=== PATIENT | female | born 1950 | race Caucasian/White ===

== ENCOUNTER 2019-05-21 08:00 | Outpatient (RCR) | payer SELFPAY | END 2019-05-22 08:00 | disposition home or self-care (01) | LOC: CHSCARD 08:00 | PROVIDERS: Visit Provider Internal Medicine Critical Care Medicine | DX: Z53.9 Procedure and treatment not carried out, unspecified reason (principal) | CPT/HCPCS: 99199 ==

== ENCOUNTER 2019-10-16 12:03 | Inpatient (IN) | payer MEDICARE, SELFPAY ==
[2019-10-16] VITALS (9 sets, daily range): BP systolic 129–163; BP diastolic 67–113; PULSE 87–118; RESP 18–30; TEMP 36.4–37; O2SAT 96–100; BMI 17.2
--- NOTE | ~2019-10-16 | CT_ITS ---
EXAMINATION: CTA chest PE protocol DATE: 10/16/2019 14:04 INDICATION: Shortness of breath. TECHNIQUE: Computed tomography angiography (CTA) of the chest was performed with 100 mL Omnipaque-350 intravenous contrast timed to evaluate the pulmonary arteries. Coronal maximum intensity projection 3D-reconstructions were created by the technologist. Automated exposure control and iterative reconst ruction technique were employed. The dose-length product was 165.91 mGy-cm. COMPARISON: Chest CT 06/13/2019, 05/12/17, 01/10/2011 FINDINGS: There is severe emphysema. There is mild atelectasis and scarring bilaterally. There is a 5 mm nodule in right lower lobe. There is a 7 mm nodule in left lower lobe. These nodules are unchange d from 05/12/2017, likely benign. No pleural effusion. There is a 10 mm nodule in right thyroid lobe, likely not clinically significant. There is a 17 mm nodule in left thyroid lobe without change from 01/10/2011, likely benign. The heart size is normal. There are coronary artery calcifications. No mele cardial effusion. There is no pulmonary embolus. There is severe thoracic spondylosis. IMPRESSION: 1. No pulmonary embolus. 2. Severe emphysema. Reviewed, dictated and finalized at location A.
--- NOTE | ~2019-10-16 | XR_ITS ---
EXAMINATION: XR chest 1V portable DATE: 10/16/2019 12:33 INDICATION: Shortness of breath. TECHNIQUE: A single frontal view of the chest was obtained. COMPARISON: Chest 2 views 06/24/2017, chest CT 06/13/2019 FINDINGS: The lungs are hyperexpanded with lucencies, consistent with emphysema. No pleural effusion or pneumothorax. The heart size is normal. The central pulmonary arteries are enlarged, consistent wi th pulmonary arterial hypertension. IMPRESSION: 1. Severe emphysema. Reviewed, dictated and finalized at location A. IMPRESSION: 1. Severe emphysema.
[2019-10-16] MEDS: methylPREDNISolone SOD SUCC 125 MG VIAL IV PUSH (12:35)
[2019-10-16 12:43] LABS: Alveolar/Arterial O2 Gradient 72.4 mmHg; Base Excess ABG 5.7 mEq/l (+/-2.0); Fractional Inspired Oxygen 38 %; HCO3 ABG 34.3 mEq/l (22.0-26.0); Oxygen Content ABG 17.8 %vol (16.0-22.0); Oxygen Saturation ABG 97.8 % (95.0-100.0); Oxyhemoglobin 96.5 % THb (90.0-100.0); PO2 ABG 117.2 mmHg (80.0-100.0); PO2 FiO2 Ratio Arterial Blood 3.08 %; pH ABG 7.305 (7.350-7.450)
[2019-10-16 12:46] LABS: PCO2 ABG 70.4 mmHg (35.0-45.0)
[2019-10-16 12:47] LABS: Device NASAL CANNULA; Liters per Minute 4.5 LPM; Site Drawn LEFT BRACHIAL
[2019-10-16 12:59] LABS: Basophils Percent Auto 0.4 % (0.2-1.2); Eosinophils Absolute Auto 0.1 K/mm3 (0-0.3); Eosinophils Percent Auto 0.7 % (0-4.4); Hematocrit 40.7 % (37.0-47.0); Hemoglobin 12.3 g/dL (12.0-15.0); Immature Granulocyte Absolute 0.04 K/mm3 (0.00-0.031); Immature Granulocyte Percent A 0.4 % (0-0.5); Lymphocytes Percent Auto 15.5 % (18.3-44.2); Mean Corpuscular HGB Conc 30.2 g/dl (32-36); Mean Corpuscular Hemoglobin 30.1 pg (26-34); Mean Corpuscular Volume 99.8 fl (80-100); Mean Platelet Volume 9.1 fl (7.4-10.4); Monocytes Percent Auto 9.2 % (2.6-8.5); Neutrophils Absolute Auto 7.6 K/mm3 (1.3-6.7); Neutrophils Percent Auto 73.8 % (45.5-73.1); Platelet Count Result 250 k/mm3 (150-375); Red Blood Count 4.08 M/mm3 (4.2-5.4); Red Cell Distribution Width 12.5 % (11.5-14.5); White Blood Count 10.3 K/mm3 (4.5-10.0)
[2019-10-16] MEDS: LORAZEPAM INJ 2 MG/ML VIAL 0.5 MG IV PUSH (13:05)
[2019-10-16 13:08] LABS: INR 0.9; Prothrombin Time 11.3 Seconds (11.1-14.7)
[2019-10-16 13:09] LABS: Partial Thromboplastin Time 27.8 SECONDS (22.3-36.8)
[2019-10-16 13:12] LABS: Alanine Aminotransferase 27 U/L (4-35); Albumin Level 4.5 g/dL (3.5-5.1); Alkaline Phosphatase 63 U/L (38-126); Aspartate Amino Transferase 33 U/L (14-36); Bilirubin,Total 0.2 mg/dL (0.2-1.3); Blood Urea Nitrogen 17 mg/dL (7-17); Calcium 9.3 mg/dL (8.4-10.2); Carbon Dioxide > 40 mmol/L (22-30); Chloride 92 mmol/L (98-107); D Dimer 0.55 ug/mL (<0.48); Estimated CRCL calculation 70 ml/min; Estimated Glomerular Filt Rate > 60; Glucose 157 mg/dL (65-105); Potassium 3.8 mmol/L (3.4-5.0); Sodium 136 mmol/L (137-145)
[2019-10-16 13:22] LABS: NT Pro B Type Natriuretic Pept 398 PG/ML (5-100); Troponin I < 0.012 ng/mL (0.000-0.034)
--- NOTE | 2019-10-16 13:57 | ED.GENADULT ---
HPI - General Adult General Chief complaint: Shortness of Breath/Dyspnea Stated complaint: diff breathing Time Seen by Provider: 10/16/19 12:08 Source: patient Mode of arrival: ambulatory Limitations: no limitations History of Present Illness HPI narrative: Patient is a 69-year-old female who presents to emergency department for evaluation of shortness of breath that is worsened over the course of the last several weeks worse in the last week with history of COPD emphysema is currently on 4-1/2 L of nasal cannula oxygen daily is followed by pulmonology has been using her home nebulizers with minimal improvement denies any new URI symptoms. Patient notes chronic cough produces white phlegm in the mornings patient denies any fever chills nausea vomiting Related Data Home Medications Medication Instructions Recorded Confirmed albuterol sulfate 2.5 mg INHALATION Q4H PRN 05/28/19 sildenafil (pulm.hypertension) 20 20 mg PO TID tablet 05/28/19 mg tablet Allergies Allergy/AdvReac Type Severity Reaction Status Date / Time latex Allergy Severe BURNING Verified 10/16/19 12:18 SENSATION Sulfa (Sulfonamide Allergy Unknown unknown Verified 10/16/19 12:18 Antibiotics) SULFA Allergy Unknown Unknown Uncoded 06/19/19 11:12 Review of Systems Review of Systems: All systems reviewed & are unremarkable except as noted in HPI and below PMFSH Past Medical History Medical History Changing nevus (~04/2019) Chronic obstructive pulmonary disease, unspecified (~2000) Ganglion cyst of finger of right hand (~01/2019) History of poliomyelitis without residual effect (~1950) Pulmonary hypertension (~2016) Weakness Surgical History Surgical History History of left oophorectomy (~05/06/86) Hx of tonsillectomy (~1955) Social History Social History Smoking status: Former smoker (Pt reports having a 20 year pack history. ) Second hand tobacco smoke exposure: No Smoking end date: 07/03/96 Alcohol intake: never Exam Narrative: Exam Narrative: GENERAL: Well-appearing, well-nourished, and in mild acute distress. HEAD: Normocephalic, atraumatic. EYES: PERRLA and EOMI. ENT: Nares clear, no rhinorrhea or epistaxis. Mucous membranes moist. Oropharynx without tonsillar hypertrophy exudate or other lesions. NECK: Supple. No adenopathy or masses. CHEST: Diminished on auscultation. Mild respiratory distress. Fine wheezes in the lower lung breaux HEART: Regular rate and rhythm. No murmur heard. Normal peripheral pulses. ABDOMEN: Soft, nontender, nondistended EXTREMITIES: Normal range of motion. No edema. SKIN: Warm, dry, no rash. NEURO: No focal deficits. Alert and oriented x3. PSYCH: Normal mood and affect. Course Consultations Consultation #1: Spoke with the hospitalist and debate director who will see patient in hospital and initiate therapies aware of case findings treatment plan and diagnosis Date: 10/16/19 Time: 14:45 Vital Signs Vital signs: Vital Signs Temperature 98.0 F 10/16/19 12:11 Pulse Rate 104 H 10/16/19 12:11 Respiratory Rate 24 H 10/16/19 12:11 Blood Pressure 129/97 H 10/16/19 12:11 Pulse Oximetry 100 10/16/19 12:11 Temperature 98.6 F 10/16/19 12:18 Pulse Rate 108 H 10/16/19 12:18 Respiratory Rate 22 H 10/16/19 12:18 Blood Pressure 159/113 H 10/16/19 12:18 Pulse Oximetry 100 10/16/19 12:18 Medical Decision Making [facility] Narrative Medical decision making narrative: Patient in the room at this time with slight improvement refused BiPAP was unable to tolerate the treatment patient with our high risk changes in the CTA of the chest patient with hypercarbia but is breathing at a more regular rate at this time patient denying any pain. Patient is afebrile nontoxic-appearing. Patient appears to be much improved
--- NOTE | 2019-10-16 14:34 | ECG_ITS ---
Measurements Intervals [place] Rate: 110 P: 85 ND: 151 QRS: 69 QRSD: 98 T: 99 QT: 327 QTc: 444 Interpretive Statements SINUS TACHYCARDIA POSSIBLE LEFT ATRIAL ENLARGEMENT LEFT VENTRICULAR HYPERTROPHY AND ST-T CHANGE BORDERLINE ST ABNORMALITY- INF/LAT LEADS BASELINE WANDER- I, V1-V6 ABNORMAL ECG Electronically Signed On 10-16-2019 15:41:15 CDT by Matthew Adame D.O.
[2019-10-16] MEDS: MAGNESIUM SULF 2 GM/WATER 50ML 2 GM/50 ML BAG IVPB (14:55)
--- NOTE | 2019-10-16 16:05 | PC.NURSE ---
This patient, Saima Bryant, was admitted to IMU Room 203-01. Patient/family oriented to hospital policies and general routines including ID bracelet, bed and alarms, visiting hours, pain management, procedures, bathroom and other care routines, personal items, smoking policy, room service/diet, and visiting hours. Valuables list has been completed. Information on how to activate the Rapid Response Team has been discussed. Patient/Family are encouraged to report perceived risks to care and to ask questions if they do not understand what they are told or what they should do.
[2019-10-16 16:23] LABS: Troponin I < 0.012 ng/mL (0.000-0.034)
[2019-10-16] MEDS: methylPREDNISolone SOD SUCC 125 MG VIAL 60 MG IV PUSH ×2 (16:59→23:38)
--- NOTE | 2019-10-16 17:22 | PM.IMHP ---
H&P: HPI History of Present Illness Chief complaint: hypercarbia,respiratory failure,copd exacerbation Narrative: Saima Bryant is a 69 year old female who has a history of COPD with chronic respiratory failure. The patient states that she typically wears oxygen around 4 to 4.5 L. She stated that she has been suffering with shortness of breath for at least 4-5 weeks. But she did want to come to the hospital because of the COVID virus. She sees Dr. Анна Jansen outpatient vásquez. The patient has tried inhalers and nebulizer machines at the past. The patient stated she cannot tolerate nebulizers. She has not recently been on any steroids no fever no chills she has a chronic cough in the nebulizers make her cough worse. The patient has known diastolic dysfunction with severe pulmonary hypertension. No pulmonary embolism. Severe emphysema. On her ABGs pH was 7.305 and pCO2 was 70.4. PO2 was 117.2. The patient refused a BiPAP machine and said she would not tolerated. They tried to give her Ativan help her tolerated which she just 1. She was given magnesium and Solu-Medrol. Date of service 10/16/2019 Review of Systems Review of Systems: All systems reviewed & are unremarkable except as noted in HPI and below Constitutional: Constitutional: Reports as per HPI and Reports no additional constitutional complaints Eyes: Eyes: Reports as per HPI and Reports no additional eye complaints ENT: Reports system reviewed and no additional complaints, except as documented and Reports Normal hearing present Cardiovascular: Cardiovascular: Reports no additional cardiovascular complaints Respiratory: Respiratory: Reports no additional respiratory complaints and Reports no additional respiratory complaints Gastrointestinal: Gastrointestinal: Reports as per HPI and Reports no additional gastrointestinal complaints Musculoskeletal: Musculoskeletal: Reports no additional musculoskeletal complaints Integumentary/Breasts: Skin/Breast: Reports system reviewed and no additional complaints, except as docu and Reports as per HPI Neurologic: Reports system reviewed and no additional complaints, except as documented, Reports as per HPI and Reports Normal hearing present Psychiatric: Psychiatric: Reports no additional psychiatric complaints and Reports as per HPI Endocrine: Endocrine: Reports no additional endocrine complaints Hematologic/Lymphatic: Hematologic/Lymphatic: Reports no additional hematologic/lymphatic complaints Allergic/Immunologic: Allergic/Immunologic: Reports no additional allergic/immunologic complaints [facility] Surgical History Surgical History History of left oophorectomy (~05/06/86) Hx of tonsillectomy (~1955) Family History Family History (Updated 10/16/19 @ 17:33 by Sharifa Delong NP) Sibling Family history of Parkinson's disease Family history of diabetes mellitus in first degree relative Hypertension Patient's sister is in good health Family history of alcoholism Mother Patient's mother is Cerebrovascular accident Family history of Parkinson's disease Grandparent Heart disease Cerebrovascular accident Father COPD (chronic obstructive pulmonary disease) Other Diabetes mellitus Family history of coronary artery disease Social History Social History (Updated 10/16/19 @ 17:40 by Sharifa Delong NP) Social History: The patient's Sim[place] lives with her . The patient desires to be a full code. Has 2 children. She used to smoke. She quit smoking in 1996. She is disabled. Smoking packs per day: 1 Smoking cigarettes per day: 20.0 Smoking status: Former smoker Second hand tobacco smoke exposure: No Smoking end date: 07/03/96 Alcohol intake: never Substance use: never Living arrangements: with family Occupation/Education: other Gender identity (if verbalized by the patient): Female Spiritual care con
[2019-10-16] MEDS: ALBUTEROL SULFATE (*SP) AEROSOL 1 PUFF 2 PUFF INHALATION ×2 (20:18→23:12)
[2019-10-16] MEDS: LOVASTATIN 10 MG TABLET PO (21:17)
[2019-10-16] MEDS: FAMOTIDINE 20 MG/2 ML VIAL IV PUSH (21:17)
--- NOTE | 2019-10-16 21:57 | PM.CNPUL ---
Assessment and Plan Assessment and plan (1) Acute and chronic respiratory failure: Qualifiers: Respiratory failure complication: hypoxia and hypercapnia Qualified Code(s): J96.21 - Acute and chronic respiratory failure with hypoxia; J96.22 - Acute and chronic respiratory failure with hypercapnia Code(s): J96.20 - Acute and chronic respiratory failure, unspecified whether with hypoxia or hypercapnia Status: Acute Assessment and Plan: Increased shortness of breath, CTA chest negative for PE. No infiltrate. She is reposnding to conservative therapy, and did not require BiPAP for hypercapnea. (2) Chronic obstructive pulmonary disease, unspecified: Onset Date: ~2000 Qualifiers: COPD type: COPD with acute exacerbation Qualified Code(s): J44.1 - Chronic obstructive pulmonary disease with (acute) exacerbation Code(s): J44.9 - Chronic obstructive pulmonary disease, unspecified Status: Acute Assessment and Plan: Severe emphysema; stopped tobacco 1996. Has considered transplant, decided not to proceed with evaluation. (3) Pulmonary hypertension: Onset Date: ~2016 Code(s): I27.20 - Pulmonary hypertension, unspecified Status: Chronic Assessment and Plan: Severe, has been on sildenafil 20 TID, recently stopped using due to lack of improvement in shortness of eath. History of Present Illness History of Present Illness Consult date: 10/21/19 Requesting physician: Denton Orellana MD Reason for consult: other (acute on chronic respiratory failure) Chief complaint: hypercarbia,respiratory failure,copd exacerbation Narrative: NEW: Saima Bryant is a 69 yo female followed in our practice. She has end stage COPD, wears O2 4.5 - 5 L/min, has called the office regarding increased shortness of breath without fever or chills,, initially would not allow her family to call an ambulance, then deteriorated. She has avoided coming to the hospital for fears regarding the pandemic, has been feeling sick for about a month. In the ED her pCO2 was higher than usual, ABG pH 7.30, pCO2 70.3, pO2 117. At first she refused use of BiPAP, improved without using it. She had diastolic dysfunction, improved with IV steroids, magnesium, She called the office several days prior to this admission because she did not like nebulized Brovana and budesonide started Sep 19, as the nebulizer seems to increase her shortness of breath and cough, wanted to switch back to Trelegy instead. She decided to stop using sildenafil for her pulmonary hypertension a few months ago, did nto think it was helping her shortness of breath. Review of Systems Review of Systems: All systems reviewed & are unremarkable except as noted in HPI and below PMFSH Past Medical History Medical History (Updated 10/17/19 @ 16:18 by Avery Avila MD) Changing nevus (~04/2019) Chronic obstructive pulmonary disease, unspecified (~2000) Ganglion cyst of finger of right hand (~01/2019) History of poliomyelitis without residual effect (~1950) Hyperlipidemia Pulmonary hypertension (~2016) Weakness Surgical History Surgical History History of left oophorectomy (~05/06/86) Hx of tonsillectomy (~1955) Family History Family History (Updated 10/16/19 @ 17:33 by Sharifa Delong NP) Sibling Family history of Parkinson's disease Family history of diabetes mellitus in first degree relative Hypertension Patient's sister is in good health Family history of alcoholism Mother Patient's mother is Cerebrovascular accident Family history of Parkinson's disease Grandparent Heart disease Cerebrovascular accident Father COPD (chronic obstructive pulmonary disease) Other Diabetes mellitus Family history of coronary artery disease Social History Social History (Updated 10/16/19 @ 17:40 by Sharifa Delong NP) Social History: The pat
[2019-10-17] VITALS (16 sets, daily range): BP systolic 116–163; BP diastolic 69–76; PULSE 90–116; RESP 16–20; TEMP 36.7–37.1; O2SAT 93–100; BMI 19.1
[2019-10-17] MEDS: ALBUTEROL SULFATE (*SP) AEROSOL 1 PUFF 2 PUFF INHALATION ×5 (03:05→20:41)
[2019-10-17 05:09] LABS: Hematocrit 40.1 % (37.0-47.0); Hemoglobin 12.2 g/dL (12.0-15.0); Immature Granulocyte Absolute 0.01 K/mm3 (0.00-0.031); Immature Granulocyte Percent A 0.2 % (0-0.5); Lymphocytes Absolute Auto 0.57 K/mm3 (0.9-3.2); Lymphocytes Percent Auto 13.9 % (18.3-44.2); Mean Corpuscular HGB Conc 30.4 g/dl (32-36); Mean Corpuscular Hemoglobin 30.2 pg (26-34); Mean Corpuscular Volume 99.3 fl (80-100); Mean Platelet Volume 9.1 fl (7.4-10.4); Monocytes Absolute Auto 0.1 K/mm3 (0.1-0.6); Monocytes Percent Auto 3.2 % (2.6-8.5); Neutrophils Absolute Auto 3.4 K/mm3 (1.3-6.7); Neutrophils Percent Auto 82.7 % (45.5-73.1); Platelet Count Result 204 k/mm3 (150-375); Red Blood Count 4.04 M/mm3 (4.2-5.4); Red Cell Distribution Width 12.3 % (11.5-14.5); White Blood Count 4.1 K/mm3 (4.5-10.0)
[2019-10-17 05:25] LABS: Alanine Aminotransferase 24 U/L (4-35); Albumin Level 4.1 g/dL (3.5-5.1); Alkaline Phosphatase 57 U/L (38-126); Aspartate Amino Transferase 27 U/L (14-36); Bilirubin,Total 0.2 mg/dL (0.2-1.3); Blood Urea Nitrogen 15 mg/dL (7-17); Calcium 9.6 mg/dL (8.4-10.2); Carbon Dioxide > 40 mmol/L (22-30); Chloride 93 mmol/L (98-107); Estimated CRCL calculation 77 ml/min; Estimated Glomerular Filt Rate > 60; Glucose 146 mg/dL (65-105); Magnesium 2.3 mg/dL (1.6-2.3); Potassium 4.6 mmol/L (3.4-5.0); Sodium 139 mmol/L (137-145)
[2019-10-17] MEDS: methylPREDNISolone SOD SUCC 125 MG VIAL 60 MG IV PUSH ×2 (05:43→12:50)
[2019-10-17 06:01] LABS: Thyroid Stimulating Hormone Reflex 0.373 uIU/mL (0.465-4.68)
[2019-10-17 06:55] LABS: Free T4 Free Thyroxine Reflex 1.29 ng/dL (0.78-2.19)
[2019-10-17 08:39] LABS: Total Triiodothyronine (T3) 0.99 NG/ML (0.97-1.69)
[2019-10-17] MEDS: FAMOTIDINE 20 MG/2 ML VIAL IV PUSH (09:21)
[2019-10-17] MEDS: SILDENAFIL CITRATE 20 MG TABLET PO ×2 (12:50→18:45)
--- NOTE | 2019-10-17 15:10 | PM.IMPN ---
Progress Note: A&P Assessment and Plan (1) Acute and chronic respiratory failure: Qualifiers: Respiratory failure complication: hypoxia and hypercapnia Qualified Code(s): J96.21 - Acute and chronic respiratory failure with hypoxia; J96.22 - Acute and chronic respiratory failure with hypercapnia Code(s): J96.20 - Acute and chronic respiratory failure, unspecified whether with hypoxia or hypercapnia Status: Acute Assessment and Plan: Patient is on 4.5L per nasal cannula chronically. She presumably has severe pulmonary hypertension. Patient most likely with COPD exacerbation resulting in the acute on chronic respiratory failure. Will wean oxygen maintain at [place] shins above 92%. Continue Solu-Medrol. Continue albuterol. Appreciate Pulmonary input. Okay to moved to medical floor. (2) Chronic obstructive pulmonary disease, unspecified: Onset Date: ~2000 Qualifiers: COPD type: COPD with acute exacerbation Qualified Code(s): J44.1 - Chronic obstructive pulmonary disease with (acute) exacerbation Code(s): J44.9 - Chronic obstructive pulmonary disease, unspecified Status: Acute Assessment and Plan: Patient with probable acute COPD exacerbation. The patient had IV magnesium in the emergency room. CTA as above. No wheezing appreciated today. Will continue Solu-Medrol and albuterol HFA. Continue Trelegy and Mucinex. Will give one dose of Diamox. (3) Hypercarbia: Code(s): R06.89 - Other abnormalities of breathing Status: Acute Assessment and Plan: pH at 7.30 with pCO2 at 70. [place] related to COPD exacerbation. Treatment as above. Patient 100% so will wean O2 to keep sats >92%. (4) Pulmonary hypertension: Onset Date: ~2016 Code(s): I27.20 - Pulmonary hypertension, unspecified Status: Chronic Assessment and Plan: Patient with severe pulmonary hypertension per chart review. However echocardiogram in April 2019 showing no pulmonary hypertension with pulmonary arterial systolic pressure 35 mmHg. Patient currently on sildenafil. Will defer to Pulmonary for further management. (5) Hyperlipidemia: Qualifiers: Hyperlipidemia type: unspecified Qualified Code(s): E78.5 - Hyperlipidemia, unspecified Code(s): E78.5 - Hyperlipidemia, unspecified Status: Acute Assessment and Plan: LFTs within normal limits. Continue lovastatin. (6) DVT prophylaxis: Code(s): Z29.9 - Encounter for prophylactic measures, unspecified Status: Acute Assessment and Plan: Nelidafrank Subjective Date/time seen: 10/17/19 15:10 Interval history: 69yo female with severe pulm HTN, COPD and chronic respiratory failure here for increasing SOB. Patient still with dyspnea on exertion when walking back to the bathroom which she has just returned from. She is also having shortness of breath at rest and overall no change in her symptoms today from admission. She complains of postnasal drainage and chronic rhinorrhea. Chest has a cough but is nonproductive. No chest pain. She complains of left-sided rib cage pain but this seems more chronic. Eating normally. No nausea or vomiting. Exam Narrative: Exam Narrative: Gen - thin female, tachypnea (just back from the BR) will sitting at side of bed HEENT - NC/AT. PERRL. MMM. No OP erythema or significant drainage Chest - few basilar rhonchi but mostly distant clear BS CV - RRR S1/S2; Tele showing no significant dysrhythmias Abd -soft. Occasionally tender but not at consistent location Ext - No pedal edema Psych - Nml mood and affect Skin - Warm and dry Objective Data Vital Signs Vital Signs: Vital Signs - 24 hr 10/16/19 16:00 10/16/19 16:13 10/16/19 18:00 Temperature 97.6 F Pulse Rate 118 H 114 H 94 Respiratory Rate 20 Blood Pressure 161/79 H Pulse Oximetry 100 10/16/19 20:00 10/16/19 20:21 10/16/19 22:00 Te
[2019-10-17] MEDS: ENOXAPARIN 40 MG/0.4 ML SYRINGE SUB-Q (17:48)
[2019-10-17] MEDS: methylPREDNISolone SOD SUCC 40 MG VIAL IV PUSH ×2 (17:49→23:13)
[2019-10-17] MEDS: WATER, STERILE FOR INJECTION 10 ML VIAL XX (18:00)
--- NOTE | 2019-10-17 18:00 | PC.NURSE ---
This patient, Saima Bryant, was transferred to [[id number] ] on 10/17/19 at 1800. Personal belongings sent with patient. Belongings list checked and signed with receiving [ ]. Report given to [ MARCO ANTONIO Leslie @[phone]]. Appropriate documentation sent with patient.
--- NOTE | 2019-10-17 18:15 | PC.NURSE ---
This patient, Saima Bryant, was received from [facility] on 10/17/19 at 1815. Personal belongings list checked and signed. Patient/family oriented to unit policies and routines
[2019-10-17] MEDS: FAMOTIDINE 20 MG TABLET PO (20:18)
[2019-10-17] MEDS: LOVASTATIN 10 MG TABLET PO (20:18)
[2019-10-17] MEDS: ACETAMINOPHEN 325 MG TABLET 650 MG PO (21:14)
[2019-10-18] VITALS (7 sets, daily range): BP systolic 134–153; BP diastolic 67–91; PULSE 94–115; RESP 16–20; TEMP 36.7–36.9; O2SAT 87–96
[2019-10-18] MEDS: ALBUTEROL SULFATE (*SP) AEROSOL 1 PUFF 2 PUFF INHALATION ×4 (00:34→13:02)
[2019-10-18 05:10] LABS: Blood Urea Nitrogen 24 mg/dL (7-17); Calcium 9.5 mg/dL (8.4-10.2); Carbon Dioxide 37 mmol/L (22-30); Chloride 97 mmol/L (98-107); Estimated CRCL calculation 57 ml/min; Estimated Glomerular Filt Rate > 60; Glucose 146 mg/dL (65-105); Sodium 137 mmol/L (137-145)
[2019-10-18] MEDS: methylPREDNISolone SOD SUCC 40 MG VIAL IV PUSH ×2 (06:47→12:08)
[2019-10-18] MEDS: SILDENAFIL CITRATE 20 MG TABLET PO ×2 (06:47→13:04)
[2019-10-18] MEDS: FAMOTIDINE 20 MG TABLET PO (07:29)
[2019-10-18] MEDS: ENOXAPARIN 40 MG/0.4 ML SYRINGE SUB-Q (07:29)
[2019-10-18] MEDS: ACETAMINOPHEN 325 MG TABLET 650 MG PO (10:15)
--- NOTE | 2019-10-18 14:29 | HOMEO2EVAL ---
Home Oxygen Evaluation RC: Home Oxygen (O2) Evaluation Start: 10/18/19 13:02 Freq: ONCE Status: Active Protocol: RPE Activity Type Activity Date Activity User E-Sign Co-Sign Detail Recorded Client Recorded Date Recorded By Document 10/18/19 14:00 MAHNAZ [id number] 10/18/19 14:28 MAHNAZ Document 10/18/19 14:02 MAHNAZ [email or web address] 10/18/19 14:28 MAHNAZ Document 10/18/19 14:04 MAHNAZ [email or web address] 10/18/19 14:28 MAHNAZ Document 10/18/19 14:08 MAHNAZ [email or web address] 10/18/19 14:28 MAHNAZ Document 10/18/19 14:20 MAHNAZ [email or web address] 10/18/19 14:28 MAHNAZ 10/18/19 10/18/19 10/18/19 14:00 14:02 14:04 Home O2 Evaluation Test Phase Resting Resting Resting Oxygen Delivery Room Air Nasal Cannula Nasal Cannula Oxygen Flow Rate (L/min) 1 2 Pulse Oximetry (90-100 %) 87 L 87 L 93 Pulse Rate (60-100 beats/min) 100 Activity Tolerance Ambulation Distance (feet) Home Oxygen Evaluation Comments Treatment Charges O2 Evaluation 10/18/19 10/18/19 14:08 14:20 Home O2 Evaluation Test Phase Exercise Resting Oxygen Delivery Nasal Cannula Nasal Cannula Oxygen Flow Rate (L/min) 2 2 Pulse Oximetry (90-100 %) 93 94 Pulse Rate (60-100 beats/min) 115 H 104 H Activity Tolerance Good Ambulation Distance (feet) 250 Home Oxygen Evaluation Comments PT REQUIRES 2L AT REST AND WITH ACTIVITY Treatment Charges
--- NOTE | 2019-10-18 14:30 | PCRCNOTE ---
HOME O2 EVAL COMPLETED. PT REQUIRES 2L AT REST AND WITH ACTIVITY. PT CURRENTLY HAS [facility] FOR O2 PROVIDER. WILL BRING IN TANK FROM HOME FOR DISCHARGE. I WILL FAX OVER THIS NEW HOME O2 EVAL AND NEW ORDER TO [facility] THIS IS A DECREASE IN CURRENT HOME O2 NEEDS/SETTING
--- NOTE | 2019-10-18 14:41 | PM.DS ---
DS: Diagnosis Admitting Diagnosis Admitting Diagnosis: Other abnormalities of breathing Discharge Diagnosis (1) Acute and chronic respiratory failure: Qualifiers: Respiratory failure complication: hypoxia and hypercapnia Qualified Code(s): J96.21 - Acute and chronic respiratory failure with hypoxia; J96.22 - Acute and chronic respiratory failure with hypercapnia Code(s): J96.20 - Acute and chronic respiratory failure, unspecified whether with hypoxia or hypercapnia Status: Acute Assessment and Plan: Patient is on 4.5L per nasal cannula chronically. She presumably has severe pulmonary hypertension. Patient most likely with COPD exacerbation resulting in the acute on chronic respiratory failure. Patient treated with Solu-Medrol and albuterol. Pulmonary followed along as well. Patient able to be weaned to 2Liters. Patietn educated about the dangers of having too much O2 (2) Chronic obstructive pulmonary disease, unspecified: Onset Date: ~2000 Qualifiers: COPD type: COPD with acute exacerbation Qualified Code(s): J44.1 - Chronic obstructive pulmonary disease with (acute) exacerbation Code(s): J44.9 - Chronic obstructive pulmonary disease, unspecified Status: Acute Assessment and Plan: Patient with probable acute COPD exacerbation. The patient had IV magnesium in the emergency room. CTA showing severe emphysema but no PE. Also with multiple pulmonary nodules but appear to be chronic. Treated with Solu-Medrol and albuterol HFA. We continued Trelegy and Mucinex. (3) Hypercarbia: Code(s): R06.89 - Other abnormalities of breathing Status: Acute Assessment and Plan: pH at 7.30 with pCO2 at 70. [place] related to COPD exacerbation. Treatment as above. Patient was 100% early in her hospital course so she was weaned to keep sats >92%. (4) Pulmonary hypertension: Onset Date: ~2016 Code(s): I27.20 - Pulmonary hypertension, unspecified Status: Chronic Assessment and Plan: Patient with severe pulmonary hypertension per chart review. However echocardiogram in April 2019 showing no pulmonary hypertension with pulmonary arterial systolic pressure 35 mmHg. Patient currently on sildenafil. Will defer to Pulmonary for further management. (5) Hyperlipidemia: Qualifiers: Hyperlipidemia type: unspecified Qualified Code(s): E78.5 - Hyperlipidemia, unspecified Code(s): E78.5 - Hyperlipidemia, unspecified Status: Acute Assessment and Plan: LFTs within normal limits. We continued lovastatin. (6) DVT prophylaxis: Code(s): Z29.9 - Encounter for prophylactic measures, unspecified Status: Acute Assessment and Plan: Lovenox DS: Summary Hospital Course Reason for hospitalization: 69yo female with severe emphysema here for SOB. Please see H&P for details. Hospital Course: As above. Time Spent with Patient Time attestation: Total time spent providing and/or coordinating discharge services:35 minutes Time spent: Greater than 30 minutes Specific discharge activities: Patient education and discussion with pulmonary Exam Narrative: Exam Narrative: SOB better. Walking to the BR. Eating small amounts. Gen - NARD sitting at the side of the bed Chest - left base mild inspiratory crackles o/w clear, distant BS CV - RRR S1/S2 Abd -soft. NT/ND, +BS Ext - No pedal edema Psych - Nml mood and affect Skin - Warm and dry DS: Data Data Completed and Pending Labs on day of discharge: Labs from last 24 hours 10/18/19 04:23 Sodium 137 Potassium 4.0 Chloride 97 L Carbon Dioxide 37 H BUN 24 H Creatinine 0.70 Estim Creat Clear Calc 57 Estimated GFR > 60 Glucose 146 H Calcium 9.5 Preliminary micro results at discharge 10/16/19 12:52 Blood Culture - Preliminary Blood 10/16/19 13:21 Blood Culture - Preliminary Blood D
--- NOTE | 2019-10-22 10:05 | PC.NURSE ---
Blood cx is negative.
== END 2019-10-18 16:04 | disposition home or self-care (01) | DRG 191 ==
LOC: ANHED 14:48 → ANHIMU 15:21 → ANH2MED 10-17 18:25
PROVIDERS: Emergency Medicine Emergency Medical Services; Nurse Practitioner; Admitting Provider Family Medicine; Emergency Provider Emergency Medicine; PCP Family Medicine; Visit Provider Internal Medicine
DX: J43.9 Emphysema, unspecified (principal); J96.11 Chronic respiratory failure with hypoxia; J96.12 Chronic respiratory failure with hypercapnia; I27.20 Pulmonary hypertension, unspecified; E78.5 Hyperlipidemia, unspecified; R91.8 Other nonspecific abnormal finding of lung field; Z87.891 Personal history of nicotine dependence
CPT/HCPCS: 36415; 36600; 71045; 71275; 80048; 80053; 82805; 83605; 83735; 83880; 84439; 84443; 84480; 84484; 85025; 85380; 85610; 85730; 87040; 93005; 94618; 94640; 96374; 96375; 99285; A9270; J0131; J1120; J1650; J2060; J2920; J2930; J3475; Q9967

== ENCOUNTER 2019-12-17 11:12 | Outpatient (CLI) | payer MEDICARE, SELFPAY ==
[2019-12-17 11:30] VITALS: O2SAT 87
[2019-12-17 11:33] VITALS: O2SAT 92
[2019-12-17 11:40] VITALS: O2SAT 86
[2019-12-17 11:43] VITALS: O2SAT 87
[2019-12-17 11:45] VITALS: O2SAT 89
[2019-12-17 12:00] VITALS: O2SAT 93
--- NOTE | 2019-12-17 13:19 | HOMEO2EVAL ---
Home Oxygen Evaluation RC: Home Oxygen (O2) Evaluation Start: 12/17/19 13:16 Freq: Status: Active Protocol: RPE Activity Type Activity Date Activity User E-Sign Co-Sign Detail Recorded Client Recorded Date Recorded By Document 12/17/19 11:30 MAHNAZ [id number] 12/17/19 13:19 MAHNAZ Document 12/17/19 11:33 [email or web address] [id number] 12/17/19 13:19 MAHNAZ Document 12/17/19 11:40 [email or web address] [email or web address] 12/17/19 13:19 MAHNAZ Document 12/17/19 11:43 [email or web address] [id number] 12/17/19 13:19 MAHNAZ Document 12/17/19 11:45 [email or web address] [email or web address] 12/17/19 13:19 MAHNAZ Document 12/17/19 12:00 MAHNAZ [id number] 12/17/19 13:19 MAHNAZ 12/17/19 12/17/19 12/17/19 11:30 11:33 11:40 Home O2 Evaluation Test Phase Resting Resting Exercise Oxygen Delivery Room Air Nasal Cannula Nasal Cannula Oxygen Flow Rate (L/min) 1 1 Pulse Oximetry (90-100 %) 87 L 92 86 L Ambulation Distance (feet) Home Oxygen Evaluation Comments Treatment Charges 12/17/19 12/17/19 12/17/19 11:43 11:45 12:00 Home O2 Evaluation Test Phase Exercise Exercise Resting Oxygen Delivery Nasal Cannula Nasal Cannula Nasal Cannula Oxygen Flow Rate (L/min) 2 3 1 Pulse Oximetry (90-100 %) 87 L 89 L 93 Ambulation Distance (feet) 300 Home Oxygen Evaluation Comments PT REQUIRES 1 AT REST AND 3 WITH EXERTION Treatment Charges O2 Evaluation
== END 2019-12-17 11:13 | disposition home or self-care (01) ==
LOC: ANHPFT 11:15
PROVIDERS: PCP Family Medicine; Visit Provider Internal Medicine Critical Care Medicine
DX: J96.10 Chronic respiratory failure, unspecified whether with hypoxia or hypercapnia (principal)
CPT/HCPCS: 94618

== ENCOUNTER 2020-01-29 14:24 | Outpatient (CLI) | payer MEDICARE, SELFPAY ==
[2020-01-29 15:58] LABS: Alanine Aminotransferase 38 U/L (4-35); Albumin Level 4.3 g/dL (3.5-5.1); Alkaline Phosphatase 56 U/L (38-126); Aspartate Amino Transferase 40 U/L (14-36); Bilirubin,Total 0.2 mg/dL (0.2-1.3); Cholesterol 144 mg/dL (0-200); HDL Direct 63 mg/dL; Triglycerides 71 mg/dL (<150)
[2020-01-29 16:10] LABS: LDL Cholesterol Direct 66 mg/dL
== END 2020-01-29 14:25 | disposition home or self-care (01) ==
PROVIDERS: Visit Provider Internal Medicine Cardiovascular Disease
DX: E78.5 Hyperlipidemia, unspecified (principal)
CPT/HCPCS: 36415; 80061; 80076

== ENCOUNTER 2020-06-08 10:52 | Emergency (ER) | payer MEDICARE, SELFPAY ==
--- NOTE | ~2020-06-08 | XR_ITS ---
EXAMINATION: XR chest 1V portable DATE: 06/08/2020 12:29 INDICATION: Tachycardia. Dyspnea. Foot swelling. TECHNIQUE: frontal view of the chest was obtained. COMPARISON: Chest radiograph and CT dated 10/16/2019 FINDINGS: Emphysema with hyperexpansion of the lungs and increased lucency and architectural distortion in the mid to upper lung zones. Increased interstitial pattern in the lower lung zones particularly on the l eft which likely due in part to bronchovascular crowding due to the emphysema but with differential i ncluding mild pulmonary edema or pneumonia. No pleural effusion or pneumothorax. Heart size is normal . Enlargement of the central pulmonary arteries consistent with pulmonary arterial hypertension. IMPRESSION: 1. Severe emphysema. 2. Increased interstitial pattern at the bilateral lower lung zones which could be due to bronchovasc ular crowding related to the emphysema and hyperexpansion the upper lungs and/or pulmonary edema or p neumonia. 3. Enlargement of the central pulmonary arteries consistent with pulmonary arterial hypertension. Reviewed, dictated and finalized at location A. ANICS HANDYMAN IMPRESSION: 1. Severe emphysema. 2. Increased interstitial pattern at the bilateral lower lung zones which could be due to bronchovascular crowding related to the emphysema and hyperexpansion the upper lungs and/or pulmonary edema or pneumonia. 3. Enlargement of the central pulmonary arteries consistent with pulmonary halle rial hypertension.
--- NOTE | ~2020-06-08 | CT_ITS ---
EXAMINATION: CTA chest PE protocol DATE: 06/08/2020 12:57 INDICATION: Cough and dyspnea. TECHNIQUE: Computed tomography (CT) pulmonary angiogram of the chest was performed with 100 mL Omnipa que-350 intravenous contrast. Additional 3D reconstructions utilizing coronal maximum intensity proje ction (MIP) were performed. Automated exposure control and iterative reconstruction technique were em ployed. The dose-length product was 155.30 mGy-cm. COMPARISON: None FINDINGS: Excellent contrast opacification of the pulmonary arteries. There is mild streak artifact from dense contrast in the superior vena cava and right atrium. Minimal scattered respiratory motion artifact wh ich does not significantly limit evaluation. No pulmonary embolism. Severe emphysema. Bands of discoi d atelectasis in the right upper lobe along the major fissure. No significant change in a small regio n of tree-in-bud opacities in the dependent aspect of the superior segment of the right lower lobe co nsistent with likely chronic pneumonia. There are a scattered small pulmonary nodules the largest galina suring 7 mm in the left lower lobe and 5 mm in the right lower lobe. These are likely benign with no interval change since 05/12/2017. There are also few scattered smaller calcified pulmonary nodules co nsistent with old granulomatous disease. No new or worsening airspace disease, pulmonary edema, pleur al effusion or pneumothorax. Heart size is normal. No pericardial effusion. Thoracic aorta is normal in caliber with no dissection. No pathologically enlarged thoracic lymphadenopathy. Visualized upper abdomen is unremarkable. Severe thoracic spondylosis. IMPRESSION: 1. No pulmonary embolism or other acute cardiopulmonary disease. 2. Severe emphysema. Reviewed, dictated and finalized at location A. HOLDER
[2020-06-08 11:11] VITALS: BP 172/130; PULSE 118; RESP 24; TEMP 36.2; O2SAT 99
--- NOTE | 2020-06-08 11:23 | ECG_ITS ---
Measurements Intervals [place] Rate: 101 P: 85 PA: 109 QRS: 85 QRSD: 102 T: 120 QT: 323 QTc: 420 Interpretive Statements SINUS TACHYCARDIA WITH SHORT PA INTERVAL POSSIBLE LEFT ATRIAL ENLARGEMENT INCOMPLETE RIGHT BUNDLE BRANCH BLOCK LEFT VENTRICULAR HYPERTROPHY WITH ST-T CHANGE BORDERLINE ST-T WAVE ABNORMALITY- INF/LAT LEADS BASELINE ARTIFACT- I, III, AVL, V1, V4 BORDERLINE ECG Electronically Signed On 06-08-2020 12:02:13 MODELING INSTRUCTOR by Matthew Adame D.O.
--- NOTE | 2020-06-08 11:26 | ED.SOB ---
HPI - SOB/Dyspnea General Chief Complaint: Shortness of Breath/Dyspnea Stated Complaint: sob, copd, pul htn Time Seen by Provider: 06/08/20 11:19 Source: RN notes reviewed History of Present Illness HPI Narrative: Patient presents to emergency department from home for shortness of breath. Patient states symptoms been progressing over the past 2 weeks. States that shortness of breath is worse with exertion she also noticed increased heart rate whenever she tries to get up and ambulate. States that she has had an associated mild cough has been nonproductive she denies any fevers or chills abdominal pain nausea vomiting or any other symptoms does note some mild chest tightness when her heart rate increases with ambulation. Patient does have a history of chronic COPD and is on 2 L nasal cannula at all times which she has been wearing states she does have to turn it up at times with ambulation Related Data Home Medications Medication Instructions Recorded Confirmed sildenafil (pulm.hypertension) 20 20 mg PO TID tablet 05/28/19 01/29/20 mg tablet Mucinex DM 1 tablet PO DAILY 10/16/19 01/29/20 Allergies Allergy/AdvReac Type Severity Reaction Status Date / Time latex Allergy Severe BURNING Verified 03/02/20 09:16 SENSATION cefdinir Allergy Mild facial Verified 06/01/20 08:58 swelling Sulfa (Sulfonamide Allergy Unknown unknown Verified 03/02/20 09:16 Antibiotics) Review of Systems Review of Systems: Narrative: Gen.: Denies fevers or chills Eyes: Denies eye pain or visual change ENT: Denies congestion Respiratory: See HPI CV: Reports rapid heart rate GI: Denies abdominal pain nausea, emesis or diarrhea Musculoskeletal: Denies back pain or muscle pain Neuro: Denies numbness, tingling, weakness or focal weakness Skin: Denies rash Except as documented, all other systems reviewed and negative [facility] Past Medical History Medical History (Updated 06/08/20 @ 16:11 by Arian Lopez DO) Changing nevus (~04/2019) Chronic hypoxemic respiratory failure Chronic obstructive pulmonary disease, unspecified (~2000) Ganglion cyst of finger of right hand (~01/2019) History of poliomyelitis without residual effect (~1950) Hyperlipidemia Pulmonary hypertension (~2016) Rhinitis Weakness Surgical History Surgical History (System 03/02/20 @ 09:16 by Mele Fuentes) History of left oophorectomy (~05/06/86) Hx of tonsillectomy (~1955) Family History Family History (System 03/02/20 @ 09:16 by Mele Fuentes) Sibling Family history of Parkinson's disease Family history of diabetes mellitus in first degree relative Hypertension Patient's sister is in good health Family history of alcoholism Mother Patient's mother is Cerebrovascular accident Family history of Parkinson's disease Grandparent Heart disease Cerebrovascular accident Father COPD (chronic obstructive pulmonary disease) Other Diabetes mellitus Family history of coronary artery disease Social History Social History Social History: The patient's Simmering lives with her . The patient desires to be a full code. Has 2 children. She used to smoke. She quit smoking in 1996. She is disabled. Smoking packs per day: 1 Smoking cigarettes per day: 20.0 Smoking status: Former smoker Second hand tobacco smoke exposure: No Smoking end date: 07/03/96 Alcohol intake: never Substance use: never Gender identity (if verbalized by the patient): Female Spiritual care concerns: No Agree to blood products: Yes Exam Narrative: Exam Narrative: APPEARANCE: No acute distress, nontoxic, sitting upright in bed EYES: EOMI HEENT: Normocephalic, atraumatic, OMM RESPIRATORY: Moderate respiratory distress and upright in bed decreased breath sounds at the bilateral lung breaux mild wheezing upper lung breaux CARDIOVASCULAR: Tachycardic and regular without
[2020-06-08 11:32] LABS: Basophils Percent Auto 0.2 % (0.2-1.2); Eosinophils Percent Auto 0.3 % (0-4.4); Hematocrit 48.6 % (37.0-47.0); Hemoglobin 15.5 g/dL (12.0-15.0); Immature Granulocyte Absolute 0.03 K/mm3 (0.00-0.031); Immature Granulocyte Percent A 0.3 % (0-0.5); Lymphocytes Absolute Auto 1.72 K/mm3 (0.9-3.2); Lymphocytes Percent Auto 15.8 % (18.3-44.2); Mean Corpuscular HGB Conc 31.9 g/dl (32-36); Mean Corpuscular Hemoglobin 31.4 pg (26-34); Mean Corpuscular Volume 98.6 fl (80-100); Mean Platelet Volume 8.8 fl (7.4-10.4); Monocytes Absolute Auto 0.8 K/mm3 (0.1-0.6); Monocytes Percent Auto 7.4 % (2.6-8.5); Neutrophils Absolute Auto 8.3 K/mm3 (1.3-6.7); Platelet Count Result 225 k/mm3 (150-375); Red Blood Count 4.93 M/mm3 (4.2-5.4); Red Cell Distribution Width 12.3 % (11.5-14.5); White Blood Count 10.9 K/mm3 (4.5-10.0)
[2020-06-08] MEDS: methylPREDNISolone SOD SUCC 125 MG VIAL IV PUSH (11:43)
[2020-06-08 11:52] LABS: Alveolar/Arterial O2 Gradient 84.1 mmHg; Base Excess ABG 3.1 mEq/l (+/-2.0); Device NASAL CANNULA; Fractional Inspired Oxygen 32 %; HCO3 ABG 30.4 mEq/l (22.0-26.0); Modified Allen's Test Pass; Oxygen Content ABG 19.1 %vol (16.0-22.0); Oxygen Saturation ABG 94.4 % (95.0-100.0); Oxyhemoglobin 93.6 % THb (90.0-100.0); PCO2 ABG 57.5 mmHg (35.0-45.0); PO2 ABG 76.8 mmHg (80.0-100.0); Site Drawn LEFT RADIAL; Total Hemoglobin 14.5 g/dL (12.0-18.0); pH ABG 7.341 (7.350-7.450)
[2020-06-08 11:52] LABS: INR 0.9; Prothrombin Time 12.5 Seconds (11.1-14.7)
[2020-06-08 11:53] LABS: Partial Thromboplastin Time 28.1 SECONDS (22.3-36.8)
[2020-06-08 12:08] VITALS: BP 168/87; PULSE 78; RESP 18; O2SAT 99
[2020-06-08 12:16] LABS: Anion Gap 7 mmol/L (8-16); Blood Urea Nitrogen 17 mg/dL (7-17); Calcium 9.2 mg/dL (8.4-10.2); Carbon Dioxide 36 mmol/L (22-30); Chloride 94 mmol/L (98-107); Estimated CRCL calculation 69 ml/min; Estimated Glomerular Filt Rate > 60; Glucose 120 mg/dL (65-105); Potassium 4.3 mmol/L (3.4-5.0); Sodium 137 mmol/L (137-145)
[2020-06-08 12:26] LABS: Troponin I 0.017 ng/mL (0.000-0.034)
[2020-06-08 14:16] VITALS: BP 169/99; PULSE 119; RESP 30; O2SAT 92
[2020-06-08] MEDS: SODIUM CHLORIDE 0.9% IV 500 ML 999 ML IV CONT (14:17)
[2020-06-08 16:02] LABS: Troponin I 0.017 ng/mL (0.000-0.034)
[2020-06-08 17:28] VITALS: BP 136/85; PULSE 107; RESP 23; O2SAT 100
[2020-06-09 18:52] LABS: SARS-CoV-2 RNA PCR Negative
== END 2020-06-08 17:28 | disposition home or self-care (01) ==
PROVIDERS: Emergency Provider Emergency Medicine
DX: J44.1 Chronic obstructive pulmonary disease with (acute) exacerbation (principal); I45.10 Unspecified right bundle-branch block; Z87.891 Personal history of nicotine dependence; E78.5 Hyperlipidemia, unspecified; I10 Essential (primary) hypertension
CPT/HCPCS: 36415; 36600; 71045; 71275; 80048; 82805; 84484; 85025; 85610; 85730; 87635; 93005; 96374; 99284; C9803; J2930; J7040; Q9967; U0003

== ENCOUNTER 2020-07-01 13:37 | Outpatient (CLI) | payer MEDICARE, SELFPAY ==
--- NOTE | ~2020-07-01 | US_ITS ---
EXAMINATION: US venous doppler LE RT EXAM DATE: 07/01/2020 14:32 INDICATION: Right foot edema. TECHNIQUE: Multiple grayscale, color flow and Doppler images of the right lower extremity deep venous system were obtained and reviewed. There is no prior study for comparison. FINDINGS: The right common femoral, femoral and profunda veins demonstrate normal color flow, respira tory variation, augmentation and compressibility. Compressibility, color flow confirmed within the r ight popliteal, posterior tibial, peroneal, and greater saphenous veins. IMPRESSION: 1. No right lower extremity deep venous thrombosis. Reviewed, dictated and finalized at location B. ARCH QUALITY ASSURANCE ANALYST
== END 2020-07-01 13:38 | disposition home or self-care (01) ==
LOC: CHSIMG 13:38
PROVIDERS: PCP Family Medicine; Visit Provider Nurse Practitioner Family
DX: R00.0 Tachycardia, unspecified (principal); R06.02 Shortness of breath; R60.9 Edema, unspecified
CPT/HCPCS: 93971

== ENCOUNTER 2020-07-27 15:55 | Outpatient (CLI) | payer MEDICARE, SELFPAY ==
--- NOTE | 2020-07-27 16:08 | ECG_ITS ---
Measurements Intervals [place] Rate: 118 P: 84 HI: 138 QRS: 94 QRSD: 98 T: 87 QT: 320 QTc: 450 Interpretive Statements SINUS TACHYCARDIA LEFT ATRIAL ENLARGEMENT RIGHT AXIS DEVIATION INCOMPLETE RIGHT BUNDLE BRANCH BLOCK NONSPECIFIC ST & T-WAVE ABNORMALITY- INF/LAT LEADS BASELINE ARTIFACT- I, II, III ABNORMAL ECG Electronically Signed On 07-27-2020 16:30:58 PAI GOW MANAGER by Matthew Adame D.O.
== END 2020-07-27 15:56 | disposition home or self-care (01) ==
LOC: CHSCARD 15:59
PROVIDERS: PCP Family Medicine; Visit Provider Internal Medicine Cardiovascular Disease
DX: R00.0 Tachycardia, unspecified (principal)
CPT/HCPCS: 93005

== ENCOUNTER 2020-07-30 12:16 | Outpatient (CLI) | payer MEDICARE, SELFPAY ==
--- NOTE | 2020-07-30 12:22 | ECHO_ITS ---
Patient Info Name: Saima Bryant Age: 69 years : 1950 Gender: Female Ht: 67 in Wt: 108 lbs BSA: 1.51 m2 HR: 120 bpm BP: 163 / 99 mmHg Technical Quality: Poor Exam Date: 07/30/2020 12:33 PM Exam Location: [facility] Patient Status: Outpatient Admit Date: 07/30/2020 Staff Ordering Physician: Matthew Adame DO Middleware Architect: Christen Bauer RDCS Attending Provider: Matthew Adame DO Referring Physician: Deep MALDONADO; Exam Type: CA echo dop color flow w con Study Info Indications I27.2 - Other secondary pulmonary hypertension Complete two-dimensional, color flow and Doppler transthoracic echocardiogram is performed with contrast to opacify the left ventricle and to improve the deliniation of the left ventricle endocardial borders. Contrast/Agitated Saline Contrast/Ag. Saline: Definity Amount: 3.00 ml IV Access Condition: patent with no signs of infiltration New IV Access: Antecubital Space and Right Site Condition: No extravasation, Site dressing applied and IV removed Reason for Poor Study: poor echocardiographic windows History/Risk Factors Hypertension: No Dyslipidemia: Yes Congenital Heart Disease (CHD): No Peripheral Arterial Disease (PAD): No Myocardial Infarction (PR): No Chronic Lung Disease: No Obesity: No Renal Disease: No Coronary Artery Disease (CAD) No Congestive Heart Failure (CHF): No Cardiomyopathy/LV Systolic Dysfunction: No Diabetes Mellitus: No COPD: On Meds, On Home Oxygen Tobacco Use: Former Cerebrovascular Disease: No Family History: Diabetes Mellitus Deep Vein Thrombosis (DVT): None Dialysis: None Frailty Scale (CSHA): 6: Moderately Frail Cardiac Arrest: No Summary 1. Left ventricular chamber dimension is normal. 2. Definity contrast administered improved wall motion interpretation. 3. D-shaped septum in systole which is consistent with RV pressure overload. 4. Left ventricular systolic function is hyperdynamic, estimated at >70%. 5. The left ventricular diastolic function is grade I diastolic dysfunction. 6. E/e' 12 is mildly elevated. 7. Right ventricular chamber dimension is moderately enlarged. 8. Right ventricular systolic function is reduced. 9. Right atrial chamber dimension is mildly enlarged. 10. The mitral valve has moderately calcified annulus. 11. There is mild tricuspid valve regurgitation. 12. Severe pulmonary hypertension, estimated pulmonary arterial systolic pressure is 111 mmHg. 13. Dilated inferior vena cava with <50% collapse upon inspiration consistent with significantly elevated right atrial pressure, 15 mmHg. Left Ventricle Definity contrast administered improved wall motion interpretation. E/e' 12 is mildly elevated. D-shaped septum in systole which is consistent with RV pressure overload. Left ventricular chamber dimension is normal. Left ventricular systolic function is hyperdynamic, estimated at >70%. The left ventricular diastolic function is grade I diastolic dysfunction. Right Ventricle Right ventricular chamber dimension is moderately enlarged. Right ventricular systolic function is reduced. Left Atria Left atrial chamber dimension is normal. Right Atria Right atrial chamber dimension is mildly enlarged. Aortic Valve The aortic valve is trileaflet. There is no aortic valve stenosis. There is no aortic valve regurgitation. Pulmonic Valve There is no pulmonic
== END 2020-07-30 12:17 | disposition home or self-care (01) ==
LOC: CHSIMG 12:17
PROVIDERS: PCP Family Medicine; Visit Provider Internal Medicine Cardiovascular Disease
DX: I27.20 Pulmonary hypertension, unspecified (principal)
CPT/HCPCS: C8929

== ENCOUNTER 2020-08-07 13:36 | Emergency (ER) | payer MEDICARE, SELFPAY ==
[2020-08-07] VITALS (37 sets, daily range): BP systolic 126–182; BP diastolic 74–111; PULSE 102–121; RESP 20–24; TEMP 37.5; O2SAT 83–100
--- NOTE | ~2020-08-07 | US_ITS ---
EXAMINATION: US venous doppler LE RT DATE: 08/07/2020 15:58 INDICATION: Right lower limb swelling. TECHNIQUE: Grayscale ultrasound images without and with compression and Doppler ultrasound images of the right lower extremity veins were obtained. COMPARISON: Ultrasound 07/01/2020 FINDINGS: The visualized portions of right common femoral vein, profunda (deep) femoral vein, femoral vein, pop liteal vein, peroneal veins, posterior tibial veins, and greater saphenous vein outflow are patent. IMPRESSION: 1. No deep venous thrombosis. Reviewed, dictated and finalized at location A. GER VALUATION
--- NOTE | ~2020-08-07 | XR_ITS ---
EXAMINATION: XR chest 2V EXAM DATE: 08/07/2020 16:08 INDICATION: Shortness of breath. Bilateral leg edema. TECHNIQUE: Frontal and lateral projections of the chest obtained and reviewed. Comparison is made to prior examination from 06/08/2020. FINDINGS: There is severe chronic hyperinflation. There are regions of lung scarring. No evidence of acute airspace disease. Cardiac silhouette is within normal size limits, but larger than on previous studies. Probable small right pleural effusion. Mild lower thoracic levoscoliosis. Mild to moderate spondylosis. IMPRESSION: 1. Small right pleural effusion. 2. Severe chronic hyperinflation. Reviewed, dictated and finalized at location B. RAFT MECHANIC ARMAMENT
--- NOTE | 2020-08-07 14:14 | ECG_ITS ---
Measurements Intervals [place] Rate: 102 P: 88 NH: 120 QRS: 94 QRSD: 100 T: -8 QT: 343 QTc: 447 Interpretive Statements SINUS TACHYCARDIA POSSIBLE LEFT ATRIAL ENLARGEMENT RIGHT AXIS DEVIATION INCOMPLETE RIGHT BUNDLE BRANCH BLOCK DELAYED PRECORDIAL R/S TRANSITION BORDERLINE ST-T WAVE ABNORMALITY- ANT/INF LEADS BORDERLINE ECG Electronically Signed On 08-07-2020 14:56:58 GEROPSYCHOLOGIST by Matthew Adame D.O.
--- NOTE | 2020-08-07 14:14 | ED.URI ---
HPI - URI/Sore Throat General Chief Complaint: Extremity Problem,Nontraumatic Stated Complaint: legs swelling Time Seen by Provider: 08/07/20 14:14 Source: patient and family Mode of arrival: ambulatory Limitations: no limitations History of Present Illness HPI Narrative: Patient comes in with lower leg swelling over past few days. She has noted this to be worse on the right lower leg. She has a history of pulmonary hypertension, and has recently had an echo. She evidently has not been on an chuyita inhibitor. She presents because of increasing shortness of breath with any activity. This has been worse over the last two days. Pertinent past history: other (COPD) Onset (ago): day(s) (over the past several days, more severe over the last two days. ) Exacerbating factors: other (legs in dependent position) Relieving factors: nothing Associated symptoms: shortness of breath and other (denies fever and chills) Treatments prior to arrival: none Related Data Home Medications Medication Instructions Recorded Confirmed sildenafil (pulm.hypertension) 20 20 mg PO TID tablet 05/28/19 08/07/20 mg tablet Mucinex DM 1 tablet PO DAILY 10/16/19 08/07/20 Trelegy Ellipta 1 inh INHALATION QAM 08/07/20 08/07/20 albuterol sulfate [ProAir HFA] 2 inh INHALATION Q2-4H 08/07/20 08/07/20 Allergies Allergy/AdvReac Type Severity Reaction Status Date / Time latex Allergy Severe BURNING Verified 07/27/20 15:26 SENSATION lisinopril Allergy Severe Difficulty Verified 08/07/20 21:38 Breathing cefdinir Allergy Mild facial Verified 07/27/20 15:26 swelling Sulfa (Sulfonamide Allergy Unknown unknown Verified 07/27/20 15:26 Antibiotics) Review of Systems Constitutional: Constitutional: Reports fatigue Eyes: Eyes: Reports no additional eye complaints ENT: Reports system reviewed and no additional complaints, except as documented Cardiovascular: Cardiovascular: Reports no additional cardiovascular complaints Respiratory: Respiratory: Reports no additional respiratory complaints Gastrointestinal: Gastrointestinal: Reports no additional gastrointestinal complaints Genitourinary: Genitourinary: Reports no additional female genitourinary complaints Musculoskeletal: Musculoskeletal: Reports no additional musculoskeletal complaints Integumentary/Breasts: Skin/Breast: Reports system reviewed and no additional complaints, except as docu Neurologic: Reports system reviewed and no additional complaints, except as documented Psychiatric: Psychiatric: Reports no additional psychiatric complaints Endocrine: Endocrine: Reports no additional endocrine complaints Hematologic/Lymphatic: Hematologic/Lymphatic: Reports no additional hematologic/lymphatic complaints Allergic/Immunologic: Allergic/Immunologic: Reports no additional allergic/immunologic complaints PMFSH Past Medical History Medical History Changing nevus (~04/2019) Chronic hypoxemic respiratory failure Chronic obstructive pulmonary disease, unspecified (~2000) Ganglion cyst of finger of right hand (~01/2019) History of poliomyelitis without residual effect (~1950) Hyperlipidemia Pulmonary hypertension (~2016) Rhinitis Weakness Surgical History Surgical History History of left oophorectomy (~05/06/86) Hx of tonsillectomy (~1955) Family History Family History Sibling Family history of Parkinson's disease Family history of diabetes mellitus in first degree relative Hypertension Patient's sister is in good health Family history of alcoholism Mother Patient's mother is Cerebrovascular accident Family history of Parkinson's disease Grandparent Heart disease Cerebrovascular accident Father COPD (chronic obstructive pulmonary disease) Other Diabetes mellitus Family history of coronary arter
[2020-08-07 14:50] LABS: Basophils Absolute Auto 0.02 K/mm3 (0.00-0.10); Basophils Percent Auto 0.3 % (0.0-1.0); Eosinophils Absolute Auto 0.05 K/mm3 (0.02-0.50); Eosinophils Percent Auto 0.8 % (1.0-6.0); Hematocrit 42.4 % (35.0-42.0); Immature Granulocyte Absolute 0.03 K/mm3 (0.00-0.00); Immature Granulocyte Percent A 0.5 % (0.0-0.0); Immature Platelet Fraction Pct 2.1 % (1.0-7.0); Lymphocytes Absolute Auto 1.25 K/mm3 (1.10-4.50); Lymphocytes Percent Auto 18.9 % (18.0-42.0); Mean Corpuscular HGB Conc 30.7 g/dL (32.0-36.0); Mean Platelet Volume 9.6 fl (9.2-11.8); Monocytes Absolute Auto 0.57 K/mm3 (0.10-0.90); Monocytes Percent Auto 8.6 % (2.0-11.0); Neutrophils Absolute Auto 4.7 K/mm3 (1.7-7.2); Neutrophils Percent Auto 70.9 % (50.0-70.0); Platelet Count Result 144 K/mm3 (150-420); Red Cell Distribution Width 13.3 % (11.6-14.4); White Blood Count 6.6 K/mm3 (4.8-10.8)
[2020-08-07 15:02] LABS: Alanine Aminotransferase 67 U/L (14-59); Albumin Level 3.3 g/dL (3.4-5.0); Alkaline Phosphatase 51 U/L (46-116); Anion Gap 1 mmol/L (8-16); Aspartate Amino Transferase 31 U/L (15-37); Bilirubin,Total 0.3 mg/dL (0.00-1.00); Blood Urea Nitrogen 15 mg/dL (7-18); Carbon Dioxide 39 mmol/L (21-32); Chloride 100 mmol/L (98-108); Estimated CRCL calculation 53 ml/min; Estimated Glomerular Filt Rate > 60; Glucose 120 mg/dL (70-99); Osmolality Calculated 291 mOsm/kg (285-295); Potassium 4.3 mmol/L (3.5-5.1); Sodium 140 mmol/L (136-145); Total Protein 6.4 g/dL (6.4-8.2); Troponin I 30.4 ng/L (0.00-60.4)
[2020-08-07 15:05] LABS: BNP 336 pg/mL (0-100)
[2020-08-07 15:08] LABS: SARS-CoV-2 Ag Negative (Negative)
[2020-08-07] MEDS: ALBUTEROL SULFATE NEB 2.5 MG/3 ML INH 5 MG INHALATION (16:30)
--- NOTE | 2020-08-07 16:45 | PC.NURSE ---
Corry, Probation And Parole Officer at [facility], contacted at [phone] for potential transfer. Awaiting call back from hospitalist.
[2020-08-07] MEDS: methylPREDNISolone SOD SUCC 125 MG VIAL IV PUSH (16:55)
[2020-08-07] MEDS: FUROSEMIDE INJ 40 MG/4 ML VIAL IV PUSH (16:55)
--- NOTE | 2020-08-07 19:32 | PC.NURSE ---
hospitalist spoke with Corry manager data warehouse. room 250 provided.
--- NOTE | 2020-08-07 19:45 | PC.NURSE ---
Telephone report provided to MARCO ANTONIO Lea at [facility]
== END 2020-08-07 20:18 | disposition short-term general hospital (02) ==
LOC: CHSED 13:39
PROVIDERS: Emergency Provider Emergency Medicine; PCP Family Medicine
DX: I27.20 Pulmonary hypertension, unspecified (principal); R06.02 Shortness of breath; E78.5 Hyperlipidemia, unspecified; Z87.891 Personal history of nicotine dependence
CPT/HCPCS: 36415; 71046; 80053; 83880; 84484; 85025; 85055; 85380; 87426; 93005; 93971; 94640; 96374; 96375; 99285; C9803; J1940; J2930

== ENCOUNTER 2020-08-07 22:42 | Observation (INO) | payer MEDICARE, SELFPAY ==
--- NOTE | ~2020-08-07 | CT_ITS ---
EXAMINATION: CTA chest PE protocol DATE: 08/08/2020 18:11 ELASTIC CUTTER INDICATION: Shortness of breath. TECHNIQUE: Computed tomographic angiography (CTA) of the chest was performed with 100 mL Omnipaque-35 0 intravenous contrast. The dose-length product was 152.39 mGy-cm. Maximum intensity projection 3D-re constructions of the aorta and other arteries were constructed by the technologist on a separate work station. COMPARISON: Comparison to multiple prior studies sequentially, with oldest reviewed study dated 05/03. FINDINGS: Study is technically adequate without evidence for pulmonary embolism. No significant pleur al effusion. No thoracic lymphadenopathy. Severe bullous emphysema. Scarring right upper lung unchang ed. There is a 6 mm right lower lobe nodule, image 78. This is unchanged. Stable 7 mm left lower lobe nodule, image 84. No endobronchial lesions. No pneumothorax. No acute focal pneumonia. Heart size is normal. Pulmonary arteries are enlarged. There is atherosclerosis of the aorta and coronary arteries . Small pericardial effusion. IMPRESSION: 1. No pulmonary embolism. 2: Severe emphysema. 3: Stable small lower lobe pulmonary nodules. Reviewed, dictated and finalized at location A. TIC CUTTER
--- NOTE | 2020-08-07 21:36 | ADMGEN ---
This patient, Saima Bryant, was admitted to Medical Room [facility] at 2049. Patient/family oriented to hospital policies and general routines including ID bracelet, bed and alarms, visiting hours, pain management, procedures, bathroom and other care routines, personal items, smoking policy, room service/diet, and visiting hours. Information on how to activate the Rapid Response Team has been discussed. Patient/Family are encouraged to report perceived risks to care and to ask questions if they do not understand what they are told or what they should do.
[2020-08-07 21:59] VITALS: BP 121/70; PULSE 115; RESP 22; TEMP 36.6; O2SAT 98
[2020-08-07 22:14] VITALS: BMI 17.5
[2020-08-07 22:24] VITALS: PULSE 117; O2SAT 91
--- NOTE | 2020-08-07 23:22 | PC.NURSE ---
At 2300 notified nursing cutting and boning supervisor Yolanda Bridges RN and Corry RN that pt stated she did not want to live like this. She said last week she was feeling bad and said to her family, I don't want to live like this. I asked her if she had intentions or plan and she said, NO I don't, I wouldn't do anything its just hard living like this.
--- NOTE | 2020-08-07 23:28 | PC.NURSE ---
Attempted to consult Dr. Burdick of consult. He is coving for Dr. Jansen this weekend. Called office no exchange, called his cell number and no answer. Will try again in am.
[2020-08-08] VITALS (12 sets, daily range): BP systolic 119–148; BP diastolic 70–82; PULSE 81–125; RESP 20–24; TEMP 36.3–37; O2SAT 93–100
--- NOTE | 2020-08-08 05:00 | PM.IMHP ---
H&P: HPI History of Present Illness Date/Time: 08/08/20 05:50 Chief Complaint: Bilateral leg swelling Narrative: Saima Bryant is a 69 year old female with a past medical history of COPD on chronic home O2, and right-sided congestive heart failure due to severe pulmonary hypertension who presented to [place] [facility] due to increasing lower extremity swelling. The patient reports that her breathing has been chronically bad for months. She had reported several months of chest pressure, tachycardia and palpitations with exertion. A chemical stress test was ordered as outpatient in June but the patient had not yet followed up with this. July that demonstrated severe pulmonary hypertension with right-sided heart pressures of 111. She had had an echocardiogram and 2018 that demonstrated normal right-sided heart pressures and normal right ventricular systolic function. She has not noticed any increased shortness of breath. She chronically tripod that home for comfort. She denies any chest pain. She does have issues with orthopnea. She has had 2 weeks of progressive the worsening lower extremity swelling. She received a dose of Lasix in the ER last night in her swelling has subsequently improved. She reports that she is on chronic home O2 of 2.5 L. she was previously evaluated at [facility] for her severe pulmonary hypertension. At that time she was considering an lung and heart transplant. She did not have a good interaction with the team at [place] and did not pursue further care there. Now she wants to reconsider the possibility of being evaluated for further medical treatment at the pulmonary hypertension clinic or the possibility of a heart lung transplant. She reports that she is tired of living this way. She becomes dyspneic even with minimal exertion. She has tachycardia with minimal exertion. She wants maximal care and will pursue anything to improve her symptoms and longevity. She has been offered trilogy in the past but she does not want to use a PAP device. She does not like albuterol or Brovana she feels these things make her shortness of breath worse. She has had progressive weight loss. She reported that her weight several years ago was 140 lb. Over recent months her weight had decreased from 112 lb down to 108. She has not weighed herself and a couple of weeks. Her weight currently is around 111 lb. Review of Systems Review of Systems: Narrative: 12 systems were reviewed with pertinent positives and negatives per HPI. Except as documented in the HPI, all other systems were reviewed and are negative. [facility] Past Medical History Medical History (Updated 08/08/20 @ 07:03 by Gisella Pepper DO) Changing nevus (~04/2019) Chronic hypoxemic respiratory failure Chronic obstructive pulmonary disease, unspecified (~2000) Ganglion cyst of finger of right hand (~01/2019) History of poliomyelitis without residual effect (~1950) Hyperlipidemia Rhinitis Right-sided congestive heart failure Noted on echocardiogram July 2020: D shaped septum in systole consistent with RV pressure overload, left ventricular systolic function hyperdynamic with EF of greater than 70%, left ventricular diastolic function grade 1 dysfunction, right ventricular chamber moderately enlarged, right ventricular systolic function is reduced, right atrial chamber dimension is mildly enlarged, mitral valve is moderate calcification, mild tricuspid regurgitation Severe pulmonary hypertension RVSP of 111 on echocardiogram July 2020, dilated inferior vena cava with greater than 50% collapse with inspiration consistent was significant elevated right atrial pressures measuring 15 mmHg Weakness Surgical History Surgical History (Updated 08/08/20 @ 07:07 by Gisella Pepper DO) History of bilateral cataract extraction 2020 History of left oophorectomy (~05/06/86) Hx of tonsillectomy (~1955) Family History Family History (Updated 08/08/20 @ 05:10 by
[2020-08-08 06:33] LABS: Hematocrit 43.6 % (37.0-47.0); Hemoglobin 13.2 g/dL (12.0-15.0); Mean Corpuscular HGB Conc 30.3 g/dl (32-36); Mean Corpuscular Volume 102.3 fl (80-100); Mean Platelet Volume 9.8 fl (7.4-10.4); Platelet Count Result 128 k/mm3 (150-375); Red Blood Count 4.26 M/mm3 (4.2-5.4); Red Cell Distribution Width 13.4 % (11.5-14.5); White Blood Count 3.1 K/mm3 (4.5-10.0)
[2020-08-08 07:02] LABS: Blood Urea Nitrogen 15 mg/dL (7-17); Calcium 8.8 mg/dL (8.4-10.2); Carbon Dioxide > 40 mmol/L (22-30); Chloride 91 mmol/L (98-107); Estimated CRCL calculation 52 ml/min; Estimated Glomerular Filt Rate > 60; Glucose 125 mg/dL (65-105); Sodium 139 mmol/L (137-145)
--- NOTE | 2020-08-08 08:33 | PM.CNPUL ---
Assessment and Plan Assessment and plan (1) Advanced COPD: Code(s): J44.9 - Chronic obstructive pulmonary disease, unspecified Status: Acute Assessment and Plan: Patient with a history of severe COPD with an FEV1 of 22% predicted on 12/12/2017, severe pulmonary hypertension by right heart catheterization on 10/03/2017 with a pulmonary pressure of 80 which improved with sildenifil to RVSP of 35 on 04/09/2019, hypoxemic respiratory failure on home oxygen, who is followed in our Pulmonary Clinic. patient has continued to slowly deteriorate over the last year and I suspect this is progression of her COPD and pulmonary hypertension. Patient does have a positive D-dimer and I will order CT angiogram of the chest to exclude pulmonary embolism. She is not wheezing and has no evidence of bronchitis or pneumonia. I will continue her Trelegy and albuterol PRN. Spoke with patient, and daughter by speaker phone and patient states that she will consider a lung transplant evaluation in the future. We will refer her back to lung transplant clinic once she is discharged. (2) Severe pulmonary hypertension: Code(s): I27.20 - Pulmonary hypertension, unspecified Status: Acute Assessment and Plan: Patient has edema of both feet and she has been given Lasix for diuresis. Patient has worsening RVSP and right heart function on her most recent echocardiogram. her pulmonary pressures are estimated at 111 now. She is currently on sildenafil 20 t.i.d. and I will continue this dose for now. Patient with hypercarbic respiratory failure today with a blood gas of 7.39/77/78 on 4L NC and I will initiate BiPAP. (3) Edema of both legs: Code(s): R60.0 - Localized edema Status: Acute Assessment and Plan: Patient has edema of both feet and she has no DVT by lower extremity Dopplers on 08/07/2020. Etiology of this lower extremity edema is cor pulmonale with worsening right heart function. Will continue Lasix for diuresis. (4) Chronic respiratory failure with hypoxia and hypercapnia: Code(s): J96.11 - Chronic respiratory failure with hypoxia; J96.12 - Chronic respiratory failure with hypercapnia Status: Acute Assessment and Plan: Patient with chronic hypoxemic and hypercarbic respiratory failure with a blood gas today on 4 L nasal cannula of 7.39/77/78. Patient has refused noninvasive ventilation in the past but today is agreeable to an attempt. I have spoken with respiratory therapy and we will attempt to place patient on BiPAP or noninvasive ventilation today. I have discussed with Dr. Damon of the hospitalist team. History of Present Illness History of Present Illness Consult date: 08/08/20 Chief complaint: End Stage COPD/CHF Narrative: Patient with a history of severe COPD with an FEV1 of 22% predicted on 12/12/2017, severe pulmonary hypertension by right heart catheterization on 10/03/2017 with a pulmonary pressure of 80 which improved with sildenifil to RVSP of 35 on 04/09/2019, hypoxemic respiratory failure on home oxygen, who is followed in our Pulmonary Clinic. Patient was evaluated by the [facility] pulmonary vascular service on 12/12/2017 and it was felt that no additional therapies would help her hemodynamics and symptoms and that she should be referred for lung transplantation. Patient referred to transplant clinic for evaluation but did not return as she wanted to talk to doctors before repeat testing was done. Patient has refused sleep studies and noninvasive ventilation in the Pulmonary Clinic. Patient was seen by her theatre manager who repeated an echocardiogram on 07/30/2020 that demonstrated worsening pulmonary hypertension with moderately enlarged right ventricle, reduced right ventricular systolic function and mild TR with a estimated RVSP of 111. Of note this has increased significantly since her last echocardiogram on 04/09/2019 in which her RVSP was measured at 35. The left ve
[2020-08-08] MEDS: ENOXAPARIN 40 MG/0.4 ML SYRINGE SUB-Q (08:41)
[2020-08-08] MEDS: FUROSEMIDE INJ 40 MG/4 ML VIAL IV PUSH (08:41)
[2020-08-08] MEDS: FLUTICASONE PROPIONATE 0.05% NA SPR 16 GM BTL (*BKC) 1 SPRAY NASAL ×2 (08:41→17:36)
--- NOTE | 2020-08-08 10:37 | PM.IMPN ---
Progress Note: A&P Assessment and Plan (1) Cor pulmonale: Code(s): I27.81 - Cor pulmonale (chronic) Status: Acute Assessment and Plan: With acute exacerbation likely due to worsening pulmonary disease Continue gentle diuresis Possible discharge 08/09 if she tolerates trilogy and continues to improve (2) Severe pulmonary hypertension: Code(s): I27.20 - Pulmonary hypertension, unspecified Status: Acute Assessment and Plan: Right-sided pressures of increased from 35-110 over the past couple of years despite optimal medical therapy Prognosis is extremely poor She was a poor surgical candidate However she is now willing to consider heart lung transplant (3) Elevated d-dimer: Code(s): R79.89 - Other specified abnormal findings of blood chemistry Status: Acute Assessment and Plan: This is chronic and relatively stable Because of the severity of her illness and lack of other reversible factors a CTA of the chest will be obtained Discussed with Dr. Roberson (4) Acute and chronic respiratory failure: Qualifiers: Respiratory failure complication: hypoxia and hypercapnia Qualified Code(s): J96.21 - Acute and chronic respiratory failure with hypoxia; J96.22 - Acute and chronic respiratory failure with hypercapnia Code(s): J96.20 - Acute and chronic respiratory failure, unspecified whether with hypoxia or hypercapnia Status: Acute Assessment and Plan: Continue oxygen at 2.5 L Obtain arterial blood gas Trial of trilogy tonight (5) Advanced COPD: Code(s): J44.9 - Chronic obstructive pulmonary disease, unspecified Status: Acute Assessment and Plan: Her COPD is likely at end stage. She would benefit from hopice/palliative care in the likely event that her belated quest for a heart lung transplant is futile. (6) Macrocytosis without anemia: Code(s): D75.89 - Other specified diseases of blood and blood-forming organs Status: Acute Assessment and Plan: Check B12 and folate (7) Thrombocytopenia: Code(s): D69.6 - Thrombocytopenia, unspecified Status: Acute Assessment and Plan: Check B12 and folate Monitor Subjective Date/time seen: 08/08/20 10:37 Interval history: 69-year-old female with severe COPD and known secondary pulmonary hypertension with cor pulmonale was admitted 08/07 with increased shortness of breath and lower extremity swelling. Previously had refused heart lung transplant but now wishes to consider it. 08/08. Breathing a little better. Still last a tripod to talk while sitting up in bed. Leg swelling down a bit. Can only tolerate small amounts of food at a time. Admits to extensive weight loss over the past couple of years. Review of Systems Review of Systems: All systems reviewed & are unremarkable except as noted in HPI and below Exam Narrative: Exam Narrative: Cachectic appearing elderly female who is dyspneic at rest Mild JVD Chest with increased AP diameter and accessory muscle use. Diminished breath sounds Heart normal S1 and S2 with regular rate no audible murmurs Extremities 2+ ankle edema bilaterally Abdomen is scaphoid with good bowel sounds and mild left upper quadrant tenderness no organomegaly or mass or bruit Musculoskeletal with diffuse muscle wasting Neurologic with cranial nerves 3-12 grossly intact Psychiatric alert and oriented to person place and time and situation. A bit anxious otherwise euthymic. Objective Data Vital Signs Vital Signs: Vital Signs - 24 hr 08/07/20 21:59 08/07/20 22:24 08/08/20 00:00 Temperature 97.8 F 97.4 F L Pulse Rate 115 H 117 H 108 H Respiratory Rate 22 H 22 H Blood Pressure 121/70 130/76 Pulse Oximetry 98 91 98 08/08/20 04:00 08/08/20 10:00 Temperature 97.3 F L 98.5 F Pulse Rate 102 H 108 H Respiratory Rate 20 22 H Blood Pressure 142/81 H 148/82 H Pulse Oximetry 99 100 Intake/Output In
[2020-08-08 11:46] LABS: Alveolar/Arterial O2 Gradient 98.3 mmHg; Base Excess ABG 16.2 mEq/l (+/-2.0); Fractional Inspired Oxygen 36 %; HCO3 ABG 45.7 mEq/l (22.0-26.0); Oxygen Content ABG 19.6 %vol (16.0-22.0); Oxygen Saturation ABG 92.6 % (95.0-100.0); Oxyhemoglobin 92.8 % THb (90.0-100.0); PO2 ABG 68.4 mmHg (80.0-100.0); pH ABG 7.388 (7.350-7.450)
[2020-08-08 11:50] LABS: Device NASAL CANNULA; Modified Allen's Test Pass; PCO2 ABG 77.6 mmHg (35.0-45.0); Site Drawn RIGHT RADIAL
[2020-08-08] MEDS: ACETAMINOPHEN 325 MG TABLET 650 MG PO (20:08)
[2020-08-08] MEDS: LOVASTATIN 10 MG TABLET PO (20:08)
[2020-08-08] MEDS: guaiFENesin 600 MG/DEXTROMETHORPHAN 30 MG SR TAB 12 HR 1 TAB PO (20:08)
[2020-08-09] VITALS (10 sets, daily range): BP systolic 121–131; BP diastolic 69–80; PULSE 95–114; RESP 20–22; TEMP 36.5–37.2; O2SAT 88–98
[2020-08-09 05:54] LABS: Hematocrit 40.2 % (37.0-47.0); Hemoglobin 12.2 g/dL (12.0-15.0); Immature Reticulocyte Fraction 10.6 % (3.0-15.9); Mean Corpuscular HGB Conc 30.3 g/dl (32-36); Mean Corpuscular Hemoglobin 30.7 pg (26-34); Mean Platelet Volume 9.6 fl (7.4-10.4); Platelet Count Result 147 k/mm3 (150-375); Red Blood Count 3.98 M/mm3 (4.2-5.4); Red Cell Distribution Width 13.2 % (11.5-14.5); Reticulocyte Percent 1.35 % (0.7-4.3); Reticulocytes Absolute 0.05 B/L (32.2-175.7)
[2020-08-09 07:55] LABS: Blood Urea Nitrogen 19 mg/dL (7-17); Calcium 8.9 mg/dL (8.4-10.2); Carbon Dioxide > 40 mmol/L (22-30); Chloride 88 mmol/L (98-107); Estimated CRCL calculation 54 ml/min; Estimated Glomerular Filt Rate > 60; Glucose 103 mg/dL (65-105); Potassium 4.2 mmol/L (3.4-5.0); Sodium 136 mmol/L (137-145)
[2020-08-09 08:58] LABS: Folic Acid > 20.0 ng/mL (2.76->20)
[2020-08-09] MEDS: AZELASTINE HCL NASAL 0.1% 137 MCG/SPR 30 ML BTL 1 SPRAY NASAL (10:03)
[2020-08-09] MEDS: FUROSEMIDE INJ 40 MG/4 ML VIAL IV PUSH (10:04)
[2020-08-09] MEDS: ENOXAPARIN 40 MG/0.4 ML SYRINGE SUB-Q (10:04)
--- NOTE | 2020-08-09 10:30 | PM.PNPUL ---
Progress Note: A&P Assessment and Plan (1) Advanced COPD: Code(s): J44.9 - Chronic obstructive pulmonary disease, unspecified Status: Acute Assessment and Plan: 08/08 Patient with a history of severe COPD with an FEV1 of 22% predicted on 12/12/2017, severe pulmonary hypertension by right heart catheterization on 10/03/2017 with a pulmonary pressure of 80 which improved with sildenifil to RVSP of 35 on 04/09/2019, hypoxemic respiratory failure on home oxygen, who is followed in our Pulmonary Clinic. Ppatient has continued to slowly deteriorate over the last year and I suspect this is progression of her COPD and pulmonary hypertension. Patient does have a positive D-dimer and I will order CT angiogram of the chest to exclude pulmonary embolism. She is not wheezing and has no evidence of bronchitis or pneumonia. I will continue her Trelegy and albuterol PRN. Spoke with patient, and daughter by speaker phone and patient states that she will consider a lung transplant evaluation in the future. We will refer her back to lung transplant clinic once she is discharged. 08/09 08/09 CT angiogram without PE, severe panlobular emphysema, no pneumonia, stable nodules. Yesterday I attmepted to help patient with a trial of BiPAP but she looked at mask and said she could not stewart it. She even tried to hold the mask up to her face and she could not even keep the mask on her face with it barely touching her skin. She remains SOB with any exertion. Diuresed with IV lasix at minus 1430 with 40 IV Q day. Speaker phone with in room. Currenlty we have excluded PE, pneumnia, no bronchospasm, no left heart failure. She can't tolerate noninvasive ventilation. Will add lasix to her regimen for right heart failure with pedal edema. Will refer to lung transplant clinic on 08/10. Add lasix 20 PO to existing regimen. They are ready for discharge today. Discharge on: Trelegy 1 puff Q day Albuterol 2 puffs Q 4 PRN Sildenifil 20 TID Oxygen per home O2 assessment. (2) Severe pulmonary hypertension: Code(s): I27.20 - Pulmonary hypertension, unspecified Status: Acute Assessment and Plan: Patient has edema of both feet and she has been given Lasix for diuresis. Patient has worsening RVSP and right heart function on her most recent echocardiogram. her pulmonary pressures are estimated at 111 now. She is currently on sildenafil 20 t.i.d. and I will continue this dose for now. Patient with hypercarbic respiratory failure today with a blood gas of 7.39/77/78 on 4L NC and I will initiate BiPAP. 08/09 Did not tolerate BiPAP mask with severe anxiety. (3) Edema of both legs: Code(s): R60.0 - Localized edema Status: Acute Assessment and Plan: Patient has edema of both feet and she has no DVT by lower extremity Dopplers on 08/07/2020. Etiology of this lower extremity edema is cor pulmonale with worsening right heart function. Will continue Lasix for diuresis. Lasix 20 PO Q day added this admission. (4) Chronic respiratory failure with hypoxia and hypercapnia: Code(s): J96.11 - Chronic respiratory failure with hypoxia; J96.12 - Chronic respiratory failure with hypercapnia Status: Acute Assessment and Plan: Patient with chronic hypoxemic and hypercarbic respiratory failure with a blood gas today on 4 L nasal cannula of 7.39/77/78. Patient has refused noninvasive ventilation in the past but today is agreeable to an attempt. I have spoken with respiratory therapy and we will attempt to place patient on BiPAP or noninvasive ventilation today. Did not tolerate any BiPAP mask for severe anxiety. ready for discharge from my perspective. I have discussed with the hospitalist team. Subjective Date/time seen: 08/09/20 10:30 Interval history: 08/08 Narrative: Patient with a history of severe COPD with an FEV1 of 22% predicted on 12/12/2017, severe pulmonary hypertension by right heart catheteriz
--- NOTE | 2020-08-09 10:44 | P.DS_ITS ---
DS: Admitting Diagnosis Admitting Diagnosis Admitting Diagnosis: Leg swelling DS: Discharge Diagnosis Discharge Diagnosis (1) Cor pulmonale: Code(s): I27.81 - Cor pulmonale (chronic) Status: Acute Assessment and Plan: * With acute exacerbation likely due to worsening pulmonary disease * Continue gentle diuresis * She was unable to tolerate trilogy due to anxiety. * Pulmonology evaluated her and felt at this time her symptoms have stabilized and the next step is to follow up as an outpatient and to be referred to [facility] about further evaluation of possible lung transplant. * Talked with Dr. Rodriguez's Pulmonology who recommended placing the patient on Lasix 20 mg once daily, continue a low-sodium diet and follow-up with an outpatient * Patient requires 3L of oxygen at rest and with exertion as per home oxygen evaluation. * Patient and understand agree with plan all questions answered. (2) Severe pulmonary hypertension: Code(s): I27.20 - Pulmonary hypertension, unspecified Status: Acute Assessment and Plan: * Right-sided pressures of increased from 35-110 over the past couple of years despite optimal medical therapy * Prognosis is extremely poor * She was a poor surgical candidate * However she is now willing to consider heart lung transplant (3) Elevated d-dimer: Code(s): R79.89 - Other specified abnormal findings of blood chemistry Status: Acute Assessment and Plan: * This is chronic and relatively stable * CTA chest showed no PE, severe emphysema. Stable small lower lobe pulmonary nodules. (4) Acute and chronic respiratory failure: Qualifiers: Respiratory failure complication: hypoxia and hypercapnia Qualified Code(s): J96.21 - Acute and chronic respiratory failure with hypoxia; J96.22 - Acute and chronic respiratory failure with hypercapnia Code(s): J96.20 - Acute and chronic respiratory failure, unspecified whether with hypoxia or hypercapnia Status: Acute Assessment and Plan: * Continue oxygen at 3 L, rest and with exertion * Arterial blood gas shows chronic CO2 retention, * Trial of trilogy ton (5) Advanced COPD: Code(s): J44.9 - Chronic obstructive pulmonary disease, unspecified Status: Acute Assessment and Plan: * Her COPD is likely at end stage. * She would benefit from hopice/palliative care in the likely event that her belated quest for a heart lung transplant is futile. (6) Macrocytosis without anemia: Code(s): D75.89 - Other specified diseases of blood and blood-forming organs Status: Acute Assessment and Plan: * B12 and folate normal (7) Thrombocytopenia: Code(s): D69.6 - Thrombocytopenia, unspecified Status: Acute Assessment and Plan: * Normal B12 and folate * Stable (8) Edema of both legs: Code(s): R60.0 - Localized edema Status: Acute Assessment and Plan: Improved with diuresis. DS: Summary Hospital Course Reason for hospitalization: Patient is a 69-year-old woman with history of COPD on chronic home oxygen, right-sided congestive heart failure due to severe pulmonary hypertension, who presented [place] [facility] with increased leg swelling and worsening shortness of breath over the last few months. She was afebrile, tachycardic at 115, respiratory rate 22, blood pressure 121/70, oxygen saturation 98% on 2L. Initial labs from [place] showed normal white count, hemoglobin 13, platelets a 144, D-dimer 0.7 slightly elevated. Elevated
--- NOTE | 2020-08-09 10:44 | PM.DS ---
DS: Admitting Diagnosis Admitting Diagnosis Admitting Diagnosis: Leg swelling DS: Discharge Diagnosis Discharge Diagnosis (1) Cor pulmonale: Code(s): I27.81 - Cor pulmonale (chronic) Status: Acute Assessment and Plan: With acute exacerbation likely due to worsening pulmonary disease Continue gentle diuresis She was unable to tolerate trilogy due to anxiety. Pulmonology evaluated her and felt at this time her symptoms have stabilized and the next step is to follow up as an outpatient and to be referred to [facility] about further evaluation of possible lung transplant. Talked with Dr. Rodriguez's Pulmonology who recommended placing the patient on Lasix 20 mg once daily, continue a low-sodium diet and follow-up with an outpatient Patient requires 3L of oxygen at rest and with exertion as per home oxygen evaluation. Patient and understand agree with plan all questions answered. (2) Severe pulmonary hypertension: Code(s): I27.20 - Pulmonary hypertension, unspecified Status: Acute Assessment and Plan: Right-sided pressures of increased from 35-110 over the past couple of years despite optimal medical therapy Prognosis is extremely poor She was a poor surgical candidate However she is now willing to consider heart lung transplant (3) Elevated d-dimer: Code(s): R79.89 - Other specified abnormal findings of blood chemistry Status: Acute Assessment and Plan: This is chronic and relatively stable CTA chest showed no PE, severe emphysema. Stable small lower lobe pulmonary nodules. (4) Acute and chronic respiratory failure: Qualifiers: Respiratory failure complication: hypoxia and hypercapnia Qualified Code(s): J96.21 - Acute and chronic respiratory failure with hypoxia; J96.22 - Acute and chronic respiratory failure with hypercapnia Code(s): J96.20 - Acute and chronic respiratory failure, unspecified whether with hypoxia or hypercapnia Status: Acute Assessment and Plan: Continue oxygen at 3 L, rest and with exertion Arterial blood gas shows chronic CO2 retention, Trial of trilogy ton (5) Advanced COPD: Code(s): J44.9 - Chronic obstructive pulmonary disease, unspecified Status: Acute Assessment and Plan: Her COPD is likely at end stage. She would benefit from hopice/palliative care in the likely event that her belated quest for a heart lung transplant is futile. (6) Macrocytosis without anemia: Code(s): D75.89 - Other specified diseases of blood and blood-forming organs Status: Acute Assessment and Plan: B12 and folate normal (7) Thrombocytopenia: Code(s): D69.6 - Thrombocytopenia, unspecified Status: Acute Assessment and Plan: Normal B12 and folate Stable (8) Edema of both legs: Code(s): R60.0 - Localized edema Status: Acute Assessment and Plan: Improved with diuresis. DS: Summary Hospital Course Reason for hospitalization: Patient is a 69-year-old woman with history of COPD on chronic home oxygen, right-sided congestive heart failure due to severe pulmonary hypertension, who presented [place] [facility] with increased leg swelling and worsening shortness of breath over the last few months. She was afebrile, tachycardic at 115, respiratory rate 22, blood pressure 121/70, oxygen saturation 98% on 2L. Initial labs from [facility] showed normal white count, hemoglobin 13, platelets a 144, D-dimer 0.7 slightly elevated. Elevated CO2 at 39. Normal renal function. BNP 336. Rapid COVID test was negative. Chest x-ray showed small right pleural effusion, severe chronic hyperinflation. Venous Dopplers were evaluated and negative for DVT bilaterally. She was transferred to our facility and started on IV Lasix. Pulmonology was consulted 10 she follows up with him as an outpatient. She was continued on her inhalers, sildenafil and albuterol. C
--- NOTE | 2020-08-09 11:21 | HOMEO2EVAL ---
Home Oxygen Evaluation RC: Home Oxygen (O2) Evaluation Start: 08/09/20 10:41 Freq: ONCE Status: Active Protocol: RPE Activity Type Activity Date Activity User E-Sign Co-Sign Detail Recorded Client Recorded Date Recorded By Document 08/09/20 10:59 CLC [email or web address] 08/09/20 11:21 CLC Document 08/09/20 11:02 CLC [email or web address] 08/09/20 11:21 CLC Document 08/09/20 11:05 CLC [email or web address] 08/09/20 11:21 CLC Document 08/09/20 11:10 CLC [email or web address] 08/09/20 11:21 CLC 08/09/20 08/09/20 08/09/20 10:59 11:02 11:05 Home O2 Evaluation Test Phase Resting Resting Exercise Oxygen Delivery Nasal Cannula Nasal Cannula Nasal Cannula Oxygen Flow Rate (L/min) 1 3 3 Pulse Oximetry (90-100 %) 88 L 93 91 Pulse Rate (60-100 beats/min) 114 H 113 H 109 H Activity Tolerance Poor Rating of Perceived Dyspnea (PD) +3 Moderate Difficulty, But Can Continue Ambulation Distance (feet) 10 Home Oxygen Evaluation Comments PT CURRENTLY WEARS 2.[address] RAMEY WANTS AN EVALUATION TO DETERMINE WHETHER PT NEEDS MORE OXYGEN WITH ACTIVITY. Treatment Charges O2 Evaluation - Inpatient 08/09/20 11:10 Home O2 Evaluation Test Phase Resting Oxygen Delivery Nasal Cannula Oxygen Flow Rate (L/min) 3 Pulse Oximetry (90-100 %) 90 Pulse Rate (60-100 beats/min) 112 H Activity Tolerance Rating of Perceived Dyspnea (PD) Ambulation Distance (feet) Home Oxygen Evaluation Comments Treatment Charges
--- NOTE | 2020-08-09 11:21 | PCRCNOTE ---
PT REQUIRES 3 LPM HOME OXYGEN WITH REST AND ACTIVITY.
== END 2020-08-09 12:35 | disposition home or self-care (01) ==
PROVIDERS: Internal Medicine; Internal Medicine Pulmonary Disease; Admitting Provider Internal Medicine; PCP Family Medicine; Visit Provider Physician Assistant
DX: I27.81 Cor pulmonale (chronic) (principal); I27.20 Pulmonary hypertension, unspecified; R79.89 Other specified abnormal findings of blood chemistry; J96.22 Acute and chronic respiratory failure with hypercapnia; J96.21 Acute and chronic respiratory failure with hypoxia; I50.813 Acute on chronic right heart failure; D75.89 Other specified diseases of blood and blood-forming organs; D69.6 Thrombocytopenia, unspecified; R60.0 Localized edema; I11.0 Hypertensive heart disease with heart failure; J44.9 Chronic obstructive pulmonary disease, unspecified; M79.89 Other specified soft tissue disorders; E78.5 Hyperlipidemia, unspecified; Z86.12 Personal history of poliomyelitis; Z87.891 Personal history of nicotine dependence; Z99.81 Dependence on supplemental oxygen
CPT/HCPCS: 36415; 36600; 71275; 80048; 82607; 82746; 82805; 85027; 85046; 94618; 96372; 96374; 96376; A9270; G0378; G0379; J1650; J1940; Q9967

== ENCOUNTER 2021-03-11 11:40 | Outpatient (NON) | payer MEDICARE, SELFPAY ==
[2021-03-11 12:04] LABS: Anion Gap 6 mmol/L (8-16); Blood Urea Nitrogen 18 mg/dL (7-18); Calcium 9.9 mg/dL (8.5-10.1); Carbon Dioxide 36 mmol/L (21-32); Chloride 98 mmol/L (98-108); Estimated Glomerular Filt Rate > 60; Glucose 104 mg/dL (70-99); Osmolality Calculated 291 mOsm/kg (285-295); Sodium 140 mmol/L (136-145)
== END 2021-03-11 11:41 | disposition home or self-care (01) ==
LOC: CHSLAB 11:44
PROVIDERS: Visit Provider Internal Medicine Cardiovascular Disease
DX: I27.20 Pulmonary hypertension, unspecified (principal)
CPT/HCPCS: 36415; 80048

== ENCOUNTER 2021-06-30 14:57 | Outpatient (CLI) | payer MEDICARE, SELFPAY ==
--- NOTE | ~2021-06-30 | XR_ITS ---
EXAMINATION: XR chest 2V DATE: 06/30/2021 16:19 INDICATION: Shortness of breath. Chest tightness. TECHNIQUE: Frontal and lateral views of the chest were obtained on 3 radiographs. COMPARISON: Chest 2 views 08/07/2020, chest CT 08/08/2020 FINDINGS: The lungs are hyperexpanded with lucencies, consistent with emphysema. There is chronic dis coid atelectasis in right upper lobe. No pleural effusion or pneumothorax. The heart size is normal. The central pulmonary arteries are enlarged, consistent with pulmonary arterial hypertension. IMPRESSION: 1. Severe emphysema. Reviewed, dictated and finalized at location D. COORDINATOR IMPRESSION: 1. Severe emphysema.
[2021-06-30 17:17] LABS: Influenza A QL RT-PCR Negative (Negative); Influenza B QL RT-PCR Negative (Negative); RSV RNA, RT-PCR Negative (Negative); SARS-CoV-2 RNA PCR Negative (Negative)
== END 2021-06-30 14:58 | disposition home or self-care (01) ==
LOC: CHSLAB 15:03
PROVIDERS: PCP Family Medicine; Visit Provider Internal Medicine Pulmonary Disease
DX: J44.9 Chronic obstructive pulmonary disease, unspecified (principal); Z20.822 Contact with and (suspected) exposure to COVID-19
CPT/HCPCS: 71046; 87502; C9803; U0003; U0005

== ENCOUNTER 2021-09-14 07:30 | Outpatient (CLI) | payer MEDICARE, SELFPAY ==
--- NOTE | ~2021-09-14 | PE_ITS ---
EXAMINATION: PET skull to mid thigh DATE: 09/14/2021 09:27 INDICATION: Solitary pulmonary nodule TECHNIQUE: Blood glucose level was 119 mg/dL. 9.329 mCi of 18-fluorodeoxyglucose (18-FDG) was adminis tered i.v. Low dose computed tomography (CT) images were acquired from the base of the brain to the p roximal thighs for attenuation correction and anatomic localization. Positron emission tomography (PE T) images were acquired in the same distribution beginning 55 minutes after injection. Images includi ng fused PET/CT images were reconstructed in axial, coronal, and sagittal planes. Automated exposure control technique was employed. The dose-length product was 325.25mGy-cm. COMPARISON: Chest CT dated 08/23/2021, 08/07/2020 and 06/13/2019 FINDINGS: Head/neck: Typical pattern of increased activity in the oral cavity, palatine tonsils, parotid glands, submandi bular glands, laryngeal muscles and ocular muscles without CT correlate, likely physiologic. No patho logically enlarged cervical lymphadenopathy or suspicious foci of increased FDG uptake in the visuali zed head or neck. Chest: Severe emphysema. Linear bands of discoid atelectasis/scarring in the bilateral upper lobes. No inter sharon change since 06/13/2019 in a 7 mm nodule in the left lower lobe which is without increased FDG up take. Also without increased FDG uptake is a 1.8 x 0.8 cm left lower lobe nodule which abuts the infe rior margin of the chronic 7 mm nodule which is new since study from one year prior dated 08/08/2020 co nsistent with an infectious/inflammatory etiology and essentially ruling out malignancy given the dev elopment within 2 weeks. There is also a persistent region of tree-in-bud opacity extending periphera lly from the spiculated nodule consistent with endobronchial spread of disease most likely infectious in etiology. Additional stable 6 mm chronic noncalcified granuloma without increased FDG uptake in t he posterior right lower lobe. No other new or enlarging pulmonary nodules or abnormal FDG avid lesio ns in the thorax. Heart size is normal. Atherosclerotic coronary artery calcification. No pericardial effusion. Thoracic aorta is normal in caliber. There is enlargement of the central pulmonary arterie s consistent with pulmonary arterial hypertension. Abdomen/pelvis/proximal thighs: Physiologic renal accumulation and excretion of FDG activity in the kidneys, bladder and along portio ns of ureters. Normal degree and heterogenous pattern of increased uptake throughout the liver withou t radiologic correlate or dominant FDG avid lesion. The gallbladder, pancreas, spleen and bilateral a drenal glands are normal. Mild uptake scattered throughout the bowels without radiologic correlate, a lso likely physiologic. No other abnormal foci of increased FDG uptake or pathologically enlarged lym phadenopathy in the abdomen, pelvis or proximal thighs. Musculoskeletal: Mild lower lumbar levocurvature with severe spondylosis at T11-T12. Additional severe disc height los s at L5-S1. Otherwise moderate spondylosis in the cervical and thoracic spine. No suspicious lytic, b lastic or FDG avid bone lesions. There is increased FDG uptake along the cephalad margin of the right femoral neck medial to the tip the greater trochanter without radiologic correlate most likely relat ed to bursitis. There is asymmetric atrophy of the musculature about the left hip and in the visualiz ed proximal left thigh which is of indeterminate etiology. Relatively symmetric diffuse increased FDG uptake throughout the musculature of the bilateral upper limbs most prominent at the hands which is likely physiologic. No suspicious lytic, blastic or FDG avid bone lesions. IMPRESSION: 1. No significant FDG uptake associated with a 1.8 x 0.8 cm spiculated left lower lobe nodule with as sociated surrounding tree-in-bud opacity which favors an infectious/inflammatory etiology. Slow g
[2021-09-14 08:04] LABS: Glucose Point of Care 119 mg/dl (65-105)
== END 2021-09-14 07:31 | disposition home or self-care (01) ==
PROVIDERS: PCP Family Medicine; Visit Provider Internal Medicine Pulmonary Disease
DX: R91.1 Solitary pulmonary nodule (principal)
CPT/HCPCS: 78815; A9552

== ENCOUNTER 2021-12-15 14:13 | Outpatient (CLI) | payer MEDICARE, SELFPAY ==
--- NOTE | ~2021-12-15 | CT_ITS ---
EXAMINATION:CT diagnostic chest wo con DATE: 12/15/2021 14:45 INDICATION: Solitary pulmonary nodule. TECHNIQUE: Computed tomography (CT) of the chest was performed without intravenous contrast. Automate d exposure control and iterative reconstruction technique were employed. The dose-length product (DLP ) was 64.42 mGy-cm. COMPARISON: Chest CT 08/08/2020, 08/23/2021 FINDINGS: There is severe emphysema. There is a 6 mm nodule in right lower lobe, stable from 08/08/2020 , likely benign. There is bandlike scarring in the upper lobes. There is a chronic 3 mm nodule in pro gula, likely benign. There is a 7 mm nodule in left lower lobe without change from 08/08/2020, likely b enign. Calcified bilateral lung nodules are consistent with old granulomatous disease. No pleural eff usion. The heart size is normal. There are coronary artery calcifications. No pericardial effusion. T he central pulmonary arteries are enlarged, consistent with pulmonary arterial hypertension. There is severe thoracic spondylosis. IMPRESSION: 1. Stable pulmonary nodules, likely benign. 2. Severe emphysema. Reviewed, dictated and finalized at location B.
== END 2021-12-15 14:14 | disposition home or self-care (01) ==
PROVIDERS: PCP Family Medicine; Visit Provider Internal Medicine Pulmonary Disease
DX: R91.1 Solitary pulmonary nodule (principal)
CPT/HCPCS: 71250

== ENCOUNTER 2022-05-27 07:48 | Outpatient (CLI) | payer MEDICARE, SELFPAY ==
[2022-05-27 08:05] LABS: Basophils Absolute Auto 0.01 K/mm3 (0.00-0.10); Basophils Percent Auto 0.2 % (0.0-1.0); Eosinophils Percent Auto 1.8 % (1.0-6.0); Hematocrit 39.2 % (35.0-42.0); Hemoglobin 12.1 g/dL (11.7-13.8); Immature Granulocyte Absolute 0.02 K/mm3 (0.00-0.00); Immature Granulocyte Percent A 0.4 % (0.0-0.0); Lymphocytes Absolute Auto 1.52 K/mm3 (1.10-4.50); Lymphocytes Percent Auto 27.1 % (18.0-42.0); Mean Corpuscular HGB Conc 30.9 g/dL (32.0-36.0); Mean Corpuscular Hemoglobin 30.8 pg (27.0-31.0); Mean Corpuscular Volume 99.7 fL (78.0-102.0); Mean Platelet Volume 8.7 fl (9.2-11.8); Monocytes Percent Auto 8.9 % (2.0-11.0); Neutrophils Absolute Auto 3.5 K/mm3 (1.7-7.2); Neutrophils Percent Auto 61.6 % (50.0-70.0); Platelet Count Result 166 K/mm3 (150-420); Red Blood Count 3.93 M/mm3 (4.20-5.40); Red Cell Distribution Width 12.7 % (11.6-14.4); White Blood Count 5.6 K/mm3 (4.8-10.8)
[2022-05-27 08:29] LABS: Alanine Aminotransferase 29 U/L (14-59); Albumin Level 3.8 g/dL (3.4-5.0); Alkaline Phosphatase 63 U/L (46-116); Anion Gap 2 mmol/L (8-16); Aspartate Amino Transferase 20 U/L (15-37); Bilirubin,Total 0.2 mg/dL (0.00-1.00); Blood Urea Nitrogen 21 mg/dL (7-18); Carbon Dioxide 38 mmol/L (21-32); Chloride 102 mmol/L (98-108); Cholesterol 159 mg/dL (0-200); Estimated Glomerular Filt Rate > 60; Glucose 115 mg/dL (70-99); HDL Direct 62 mg/dL (40-60); LDL Cholesterol Calculated 82 mg/dL (<130); Osmolality Calculated 298 mOsm/kg (285-295); Potassium 4.2 mmol/L (3.5-5.1); Sodium 142 mmol/L (136-145); Total Protein 7.1 g/dL (6.4-8.2); Triglycerides 77 mg/dL (0-150)
[2022-05-31 19:04] LABS: Hemoglobin A1C 5.1 % (<5.7)
== END 2022-05-27 07:49 | disposition home or self-care (01) ==
LOC: CHSLAB 07:50
PROVIDERS: PCP Family Medicine; Visit Provider Nurse Practitioner Family
DX: I50.9 Heart failure, unspecified (principal); E78.5 Hyperlipidemia, unspecified; R73.9 Hyperglycemia, unspecified
CPT/HCPCS: 36415; 80053; 80061; 83036; 85025

== ENCOUNTER 2022-06-18 13:34 | Outpatient (CLI) | payer MEDICARE, SELFPAY ==
[2022-06-18 14:21] LABS: Influenza A QL RT-PCR Negative (Negative); Influenza B QL RT-PCR Negative (Negative); SARS-CoV-2 RNA PCR Negative (Negative)
[2022-06-18 14:24] LABS: RSV RNA, RT-PCR Negative (Negative)
== END 2022-06-18 13:35 | disposition home or self-care (01) ==
LOC: CHSLAB 13:36
PROVIDERS: PCP Family Medicine; Visit Provider Nurse Practitioner Family
DX: R05.9 Cough, unspecified (principal)
CPT/HCPCS: 87637

== ENCOUNTER 2022-08-12 14:21 | Outpatient (CLI) | payer MEDICARE, SELFPAY ==
--- NOTE | ~2022-08-12 | XR_ITS ---
EXAMINATION: XR chest 2V DATE: 08/12/2022 14:59 INDICATION: Dyspnea and emphysema TECHNIQUE: PA and lateral views of the chest were obtained. COMPARISON: Chest radiograph dated 06/30/[address] dated 12/15/2021 FINDINGS: Bilateral increased lucency and architectural distortion most prominent in the mid and upper lung zon es. Linear and bandlike discoid atelectasis/scarring in the bilateral mid and lower lung zones config uration on lateral projection without significant change when compared with the more recent CT imagin g. No other airspace opacities, pulmonary edema, pleural effusion or pneumothorax. The cardiomediasti nal silhouette is normal. Mild lower thoracic levocurvature with moderate to severe thoracic spondylo sis. IMPRESSION: 1. Emphysema with chronic discoid atelectasis/scarring in the bilateral mid and upper lung zones. Reviewed, dictated and finalized at location A. NATOR PREFORMS
== END 2022-08-12 14:22 | disposition home or self-care (01) ==
LOC: CHSIMG 14:23
PROVIDERS: PCP Family Medicine; Visit Provider Nurse Practitioner Family
DX: R05.9 Cough, unspecified (principal); R06.00 Dyspnea, unspecified; J43.9 Emphysema, unspecified
CPT/HCPCS: 71046

== ENCOUNTER 2022-09-06 11:06 | Inpatient (IN) | payer MEDICARE, SELFPAY ==
[2022-09-06] VITALS (33 sets, daily range): BP systolic 113–171; BP diastolic 65–118; PULSE 94–122; RESP 17–28; TEMP 36.5–37.1; O2SAT 92–100; BMI 16.3
--- NOTE | ~2022-09-06 | XR_ITS ---
EXAMINATION: XR chest 2V DATE: 09/06/2022 12:22 INDICATION: Shortness of breath. Chronic obstructive pulmonary disease. TECHNIQUE: Frontal and lateral views of the chest were obtained. COMPARISON: Chest 2 views 08/12/2022, chest CT 12/15/2021 FINDINGS: There are lucencies in the lungs, consistent with emphysema. There are airspace opacities i n right lower lobe. No pleural effusion or pneumothorax. The heart size is normal. The central pulmon tierney arteries are enlarged, consistent with pulmonary arterial hypertension. IMPRESSION: 1. New airspace opacities in right lower lobe, consistent with pneumonia. 2. Severe emphysema. Reviewed, dictated and finalized at location A. UTER FORENSIC SPECIALIST
--- NOTE | ~2022-09-06 | XR_ITS ---
EXAMINATION: XR chest 1V portable DATE: 09/09/2022 07:58 INDICATION: Pneumonia. Chronic obstructive pulmonary disease. TECHNIQUE: A single frontal view of the chest was obtained. COMPARISON: Chest 2 views 09/06/2022, chest CT 12/15/2021 FINDINGS: There is severe emphysema. There is mild atelectasis at the lung bases. No pleural effusion or pneumothorax. The heart size is normal. IMPRESSION: 1. Severe emphysema. Reviewed, dictated and finalized at location A. AL BIOLOGIST IMPRESSION: 1. Severe emphysema.
--- NOTE | ~2022-09-06 | CT_ITS ---
EXAMINATION:CT diagnostic chest wo con DATE: 09/09/2022 10:33 INDICATION: Pulmonary nodules. Pneumonia. TECHNIQUE: Computed tomography (CT) of the chest was performed without intravenous contrast. Automate d exposure control and iterative reconstruction technique were employed. The dose-length product (DLP ) was 150.60 mGy-cm. COMPARISON: Chest CT 12/15/2021 FINDINGS: There is severe emphysema. There is subsegmental airspace opacities in right lower lobe, co nsistent with pneumonia. There is a stable 6 mm nodule in left lower lobe, likely benign. Calcified l eft lung nodules are consistent with old granulomatous disease. No pleural effusion. The heart size i s normal. There are coronary artery calcifications. No pericardial effusion. There is severe thoracic spondylosis. IMPRESSION: 1. Right lower lobe pneumonia. 2. Severe emphysema. Reviewed, dictated and finalized at location A. UNITY CHEST OFFICER
--- NOTE | 2022-09-06 11:48 | ECG_ITS ---
Measurements Intervals [place] Rate: 113 P: 85 TN: 115 QRS: 77 QRSD: 98 T: 98 QT: 330 QTc: 454 Interpretive Statements SINUS TACHYCARDIA WITH SHORT TN INTERVAL POSSIBLE RIGHT ATRIAL ENLARGEMENT LEFT ATRIAL ENLARGEMENT INCOMPLETE RIGHT BUNDLE BRANCH BLOCK DELAYED PRECORDIAL R/S TRANSITION LEFT VENTRICULAR HYPERTROPHY AND ST-T CHANGE BORDERLINE ST-T WAVE ABNORMALITY- INF/HIGH LAT LEADS ABNORMAL ECG COMPARED TO ECG 08/07/2020 14:50:10 LEFT VENTRICULAR HYPERTROPHY NOW PRESENT Electronically Signed On 09-06-2022 13:15:57 SOFTWARE DEVELOPER MID LEVEL by Matthew Adame D.O.
--- NOTE | 2022-09-06 11:53 | ED.SOB ---
HPI - SOB/Dyspnea General Chief Complaint: Shortness of Breath/Dyspnea Stated Complaint: SOB Time Seen by Provider: 09/06/22 11:47 History of Present Illness HPI Narrative: Pt presents with SOB for over a week. Pt denies CP or fever. Pt is allergic to all nebulizers and inhalers not helping. Pt says she just came off of prednisone. Pt is normally on 2.5 L of oxygen but moving up to 3L. Pt denies fever. Related Data Home Medications Medication Instructions Recorded Confirmed dextromethorphan-guaifenesin 30 1 tablet PO DAILY PRN Congestion 05/24/22 09/06/22 mg-600 mg tablet extended [id number] hr (Mucinex DM) Allergies Allergy/AdvReac Type Severity Reaction Status Date / Time latex Allergy Severe BURNING Verified 08/12/22 13:34 SENSATION lisinopril Allergy Severe Difficulty Verified 08/12/22 13:34 Breathing cefdinir Allergy Mild facial Verified 08/12/22 13:34 swelling Sulfa (Sulfonamide Allergy Unknown unknown Verified 08/12/22 13:34 Antibiotics) amoxicillin [From Augmentin] AdvReac Mild Diarrhea Verified 08/12/22 13:34 clavulanic acid AdvReac Mild Diarrhea Verified 08/12/22 13:34 [From Augmentin] levofloxacin [From Levaquin] AdvReac facial Verified 08/12/22 13:34 swelling Review of Systems Review of Systems: All systems reviewed & are unremarkable except as noted in HPI and below PMFSH Past Medical History Medical History (Updated 09/06/22 @ 17:37 by Sharifa Delong NP) Changing nevus (~04/2019) Chronic obstructive pulmonary disease, unspecified (~2000) Ganglion cyst of finger of right hand (~01/2019) History of poliomyelitis without residual effect (~1950) Hyperlipidemia Hypertension Rhinitis Right-sided congestive heart failure Noted on echocardiogram July 2020: D shaped septum in systole consistent with RV pressure overload, left ventricular systolic function hyperdynamic with EF of greater than 70%, left ventricular diastolic function grade 1 dysfunction, right ventricular chamber moderately enlarged, right ventricular systolic function is reduced, right atrial chamber dimension is mildly enlarged, mitral valve is moderate calcification, mild tricuspid regurgitation Severe pulmonary hypertension RVSP of 111 on echocardiogram July 2020, dilated inferior vena cava with greater than 50% collapse with inspiration consistent was significant elevated right atrial pressures measuring 15 mmHg Weakness Surgical History Surgical History (Updated 09/06/22 @ 17:44 by Sharifa Delong NP) H/O dilation and curettage History of bilateral cataract extraction 2020 History of left oophorectomy (~05/06/86) Hx of tonsillectomy (~1955) Family History Family History Sibling Hypertension Parkinsons disease Alcoholism Diabetes mellitus Mother Cerebrovascular accident Parkinsons disease Grandparent Heart disease Cerebrovascular accident Father COPD (chronic obstructive pulmonary disease) Social History Social History (Updated 09/06/22 @ 17:38 by Sharifa Delong NP) Social History: The patient lives with her and Has 2 children. She used to smoke and She quit smoking in 1996. She is disabled. Primary care physician: Dr. Rosalino Ulrich Code status: Full code Surrogate decision maker: Smoking packs per day: 1 Smoking cigarettes per day: 20.0 Years smoked: 20 Smoking pack-years: 20.00 Smoking status: Former smoker Tobacco type: cigarettes Second hand tobacco smoke exposure: No Smoking end date: 07/03/96 Alcohol intake: never Substance use: never Substance use type: does not use Lack of Transportation: No Lack of Food: Never True Current Housing: I Have Housing Concerned About Future Housing: No Difficulty Paying Gas/Electric Bills: No Difficulty Paying for Meds: No Education: High School Diploma/GED Difficulty w/
[2022-09-06] MEDS: methylPREDNISolone SOD SUCC 125 MG VIAL IV PUSH (12:02)
[2022-09-06 12:07] LABS: Basophils Percent Auto 0.2 % (0.2-1.2); Eosinophils Absolute Auto 0.2 K/mm3 (0-0.3); Eosinophils Percent Auto 1.7 % (0-4.4); Hematocrit 47.4 % (37.0-47.0); Hemoglobin 14.7 g/dL (12.0-15.0); Immature Granulocyte Absolute 0.03 K/mm3 (0.00-0.031); Immature Granulocyte Percent A 0.3 % (0-0.5); Lymphocytes Absolute Auto 1.38 K/mm3 (0.9-3.2); Lymphocytes Percent Auto 14.8 % (18.3-44.2); Mean Corpuscular Hemoglobin 31.2 pg (26-34); Mean Corpuscular Volume 100.6 fl (80-100); Monocytes Absolute Auto 0.9 K/mm3 (0.1-0.6); Monocytes Percent Auto 9.2 % (2.6-8.5); Neutrophils Absolute Auto 6.9 K/mm3 (1.3-6.7); Neutrophils Percent Auto 73.8 % (45.5-73.1); Platelet Count Result 207 k/mm3 (150-375); Red Blood Count 4.71 M/mm3 (4.2-5.4); Red Cell Distribution Width 13.1 % (11.5-14.5); White Blood Count 9.3 K/mm3 (4.5-10.0)
[2022-09-06 12:15] LABS: Alanine Aminotransferase 32 U/L (6-35); Albumin Level 4.6 g/dL (3.5-5.1); Alkaline Phosphatase 87 U/L (38-126); Anion Gap 7 mmol/L (8-16); Aspartate Amino Transferase 42 U/L (14-36); Bilirubin,Total 0.5 mg/dL (0.2-1.3); Blood Urea Nitrogen 31 mg/dL (7-17); Calcium 9.4 mg/dL (8.4-10.2); Carbon Dioxide 39 mmol/L (22-30); Chloride 93 mmol/L (98-107); Estimated CRCL calculation 56 ml/min; Estimated Glomerular Filt Rate > 60; Glucose 127 mg/dL (65-110); Potassium 4.1 mmol/L (3.4-5.0); Sodium 139 mmol/L (137-145)
[2022-09-06 12:27] LABS: NT Pro B Type Natriuretic Pept 1010 pg/mL (19.9-100); Troponin I 0.022 ng/mL (0.000-0.034)
--- NOTE | 2022-09-06 13:31 | PM.IMHP ---
H&P: HPI History of Present Illness Date/Time: 09/06/22 13:31 Chief Complaint: Shortness of breath Narrative: This is a 72-year-old female patient who has a history of COPD and is on oxygen anywhere from 2 and half to 3 L. the patient stated that she uses inhalers at home and she cannot tolerate nebulizer treatments because it makes her too short of breath when she uses an albuterol treatment. She denies any chest pain or fever. The patient stated that she has a history of having pulmonary nodules and she is concerned about those. The patient is currently on 3.5 L. She has been short of breath. She has been tachypneic. She stated that she still losing weight because she just does not have appetite and she has been too short of breath. Chest x-ray was read as no airspace opacities and right lower, consistent with pneumonia. Severe emphysema. Blood sugar 127. BNP 1010. Patient is negative for influenza A/B and COVID as well as RSV. The patient was given Solu-Medrol Rocephin and azithromycin. Chest x-ray was read as new airspace opacities and right lower lobe consistent with pneumonia. Severe emphysema. The patient is being admitted to observation status on the date of service of 09/06/2022. Review of Systems Review of Systems: See HPI All systems reviewed & are unremarkable except as noted in HPI and below Constitutional: Constitutional: Reports as per HPI and Reports no additional constitutional complaints Eyes: Eyes: Reports as per HPI and Reports no additional eye complaints ENT: Reports system reviewed and no additional complaints, except as documented and Reports Normal hearing present Cardiovascular: Cardiovascular: Reports no additional cardiovascular complaints Respiratory: Respiratory: Reports no additional respiratory complaints and Reports no additional respiratory complaints Gastrointestinal: Gastrointestinal: Reports as per HPI and Reports no additional gastrointestinal complaints Musculoskeletal: Musculoskeletal: Reports no additional musculoskeletal complaints Integumentary/Breasts: Skin/Breast: Reports system reviewed and no additional complaints, except as docu and Reports as per HPI Neurologic: Reports system reviewed and no additional complaints, except as documented, Reports as per HPI and Reports Normal hearing present Psychiatric: Psychiatric: Reports no additional psychiatric complaints and Reports as per HPI Endocrine: Endocrine: Reports no additional endocrine complaints Hematologic/Lymphatic: Hematologic/Lymphatic: Reports no additional hematologic/lymphatic complaints Allergic/Immunologic: Allergic/Immunologic: Reports no additional allergic/immunologic complaints [facility] Past Medical History Medical History (Updated 09/06/22 @ 17:37 by Sharifa Delong NP) Changing nevus (~04/2019) Chronic obstructive pulmonary disease, unspecified (~2000) Ganglion cyst of finger of right hand (~01/2019) History of poliomyelitis without residual effect (~1950) Hyperlipidemia Hypertension Rhinitis Right-sided congestive heart failure Noted on echocardiogram July 2020: D shaped septum in systole consistent with RV pressure overload, left ventricular systolic function hyperdynamic with EF of greater than 70%, left ventricular diastolic function grade 1 dysfunction, right ventricular chamber moderately enlarged, right ventricular systolic function is reduced, right atrial chamber dimension is mildly enlarged, mitral valve is moderate calcification, mild tricuspid regurgitation Severe pulmonary hypertension RVSP of 111 on echocardiogram July 2020, dilated inferior vena cava with greater than 50% collapse with inspiration consistent was significant elevated right atrial pressures measuring 15 mmHg Weakness Surgical History Surgical History (Updated 09/06/22 @ 17:44 by Sharifa Delong NP) H/O dilation and curettage History of bilateral cataract extraction 2019 History of left oophorectomy (~05/06/86)
[2022-09-06] MEDS: cefTRIAXone 2 GM in SODIUM CHLORIDE 0.9% IV 100 ML 200 ML IVPB (13:49)
[2022-09-06] MEDS: SILDENAFIL CITRATE 20 MG TABLET PO (19:23)
[2022-09-06] MEDS: methylPREDNISolone SOD SUCC 125 MG VIAL 60 MG IV PUSH (19:24)
[2022-09-07] VITALS (16 sets, daily range): BP systolic 107–135; BP diastolic 59–83; PULSE 63–117; RESP 18–24; TEMP 36.2–37; O2SAT 93–100; BMI 16.3
[2022-09-07] MEDS: methylPREDNISolone SOD SUCC 125 MG VIAL 60 MG IV PUSH ×2 (00:15→05:45)
[2022-09-07 05:12] LABS: Hematocrit 38.9 % (37.0-47.0); Hemoglobin 12.1 g/dL (12.0-15.0); Immature Granulocyte Absolute 0.02 K/mm3 (0.00-0.031); Immature Granulocyte Percent A 0.5 % (0-0.5); Lymphocytes Absolute Auto 0.63 K/mm3 (0.9-3.2); Mean Corpuscular HGB Conc 31.1 g/dl (32-36); Mean Corpuscular Hemoglobin 30.8 pg (26-34); Mean Platelet Volume 9.2 fl (7.4-10.4); Monocytes Absolute Auto 0.1 K/mm3 (0.1-0.6); Monocytes Percent Auto 2.3 % (2.6-8.5); Neutrophils Absolute Auto 3.2 K/mm3 (1.3-6.7); Neutrophils Percent Auto 81.2 % (45.5-73.1); Platelet Count Result 171 k/mm3 (150-375); Red Blood Count 3.93 M/mm3 (4.2-5.4); Red Cell Distribution Width 12.6 % (11.5-14.5); White Blood Count 3.9 K/mm3 (4.5-10.0)
[2022-09-07 05:23] LABS: Alanine Aminotransferase 27 U/L (6-35); Alkaline Phosphatase 51 U/L (38-126); Anion Gap 2 mmol/L (8-16); Aspartate Amino Transferase 32 U/L (14-36); Bilirubin,Total 0.4 mg/dL (0.2-1.3); Blood Urea Nitrogen 26 mg/dL (7-17); Calcium 9.5 mg/dL (8.4-10.2); Carbon Dioxide 39 mmol/L (22-30); Chloride 94 mmol/L (98-107); Estimated CRCL calculation 54 ml/min; Estimated Glomerular Filt Rate > 60; Glucose 151 mg/dL (65-110); Magnesium 2.2 mg/dL (1.6-2.3); Potassium 4.6 mmol/L (3.4-5.0); Sodium 135 mmol/L (137-145)
[2022-09-07 06:23] LABS: Thyroid Stimulating Hormone Reflex 0.164 uIU/mL (0.465-4.68)
[2022-09-07] MEDS: FLUTICASONE/UMECLIDIN/VILANTER 100-62.5-25 MCG ELLIPTA 1 PUFF INHALATION (08:17)
[2022-09-07] MEDS: FUROSEMIDE INJ 40 MG/4 ML VIAL IV PUSH (08:25)
[2022-09-07] MEDS: ENOXAPARIN 40 MG/0.4 ML SYRINGE SUB-Q (08:25)
[2022-09-07] MEDS: SILDENAFIL CITRATE 20 MG TABLET PO ×3 (08:25→18:56)
[2022-09-07 08:43] LABS: Free T4 Free Thyroxine Reflex 1.43 ng/dL (0.78-2.19)
--- NOTE | 2022-09-07 09:24 | ECG_ITS ---
Measurements Intervals [place] Rate: 119 P: 87 AK: 123 QRS: 75 QRSD: 103 T: 91 QT: 297 QTc: 418 Interpretive Statements SINUS TACHYCARDIA POSSIBLE LEFT ATRIAL ENLARGEMENT INCOMPLETE RIGHT BUNDLE BRANCH BLOCK DELAYED PRECORDIAL R/S TRANSITION LEFT VENTRICULAR HYPERTROPHY AND ST-T CHANGE BORDERLINE ST-T WAVE ABNORMALITY- INF/HIGH LAT LEADS ABNORMAL ECG COMPARED TO ECG 09/06/2022 11:55:44 NO SIGNIFICANT CHANGES Electronically Signed On 09-07-2022 10:44:13 PIPE CLEANING MACHINE OPERATOR by Matthew Adame D.O.
[2022-09-07 09:38] LABS: Total Triiodothyronine (T3) 0.95 NG/ML (0.97-1.69)
--- NOTE | 2022-09-07 10:49 | PM.CNPUL ---
Assessment and Plan Assessment and plan (1) Pneumonia: Code(s): J18.9 - Pneumonia, unspecified organism Status: Acute Assessment and Plan: Patient presents with progressive worsening shortness of breath at rest and dyspnea on exertion, she is afebrile, she has no white blood cell count, she does have new right lower lobe infiltrate compared to chest x-ray on 08/12/2022 she is being treated with ceftriaxone and azithromycin for community-acquired pneumonia. Sputum Gram stain demonstrates a few white blood cells, few epithelial cells, few mixed bacterial jayce culture is pending. Plan: I will send covid, RSV and influenza. Will send urine for Legionella, urine for pneumococcal antigen and serum for mycoplasma IgM. continue ceftriaxone and azithromycin, started 09/06. (2) Advanced COPD: Code(s): J44.9 - Chronic obstructive pulmonary disease, unspecified Status: Acute Assessment and Plan: GOLD grade 4 group e COPD Regarding her COPD she has a 22 pack year history of tobacco use, quit 1997, an FEV1 of 19% predicted on 08/24/2021 (at [facility]), Home trilogy started in 10/2020, severe pulmonary hypertension by right heart catheterization on 10/03/2017 with a pulmonary pressure of 80 which improved with sildenifil to RVSP of 35 on 04/09/2019, hypoxemic respiratory failure on home oxygen 3 L 23/01. she cannot tolerate any nebulized medicine and states that breztri makes her breathing worse. She is maintained on trilogy 09/07/21 Patient currently has no wheezing, Change in her cough or phlegm production. She does have new infiltrates in her right lower lobe and is being treated for pneumonia. At this time I am not convinced she has a COPD exacerbation. nevertheless she has received steroids and states she is doing better today. I will decrease her Solu-Medrol to 20 Q 6 today. will change her to trilogy 200 starting 09/08. (3) Severe pulmonary hypertension: Code(s): I27.20 - Pulmonary hypertension, unspecified Status: Acute Assessment and Plan: Severe pulmonary hypertension by right heart catheterization on 10/03/2017 with a pulmonary pressure of 80 which improved with sildenifil to RVSP of 35 on 04/09/2019. Patient was evaluated by the [facility] pulmonary vascular service on 12/12/2017 and it was? felt that no additional therapies would help her hemodynamics and symptoms and that she should be referred for lung transplantation.? Patient referred to transplant clinic for evaluation but did not return. Patient was seen by her mate fourth who repeated an echocardiogram on 07/30/2020 that demonstrated worsening pulmonary hypertension with moderately enlarged right ventricle, reduced right ventricular systolic function and mild TR with a estimated RVSP of 111. I discussed with [facility] Pulmonary [facility] on 07/21/2021 and they recommended no additional vasodilators and referred to lung transplant clinic. Evaluated by [facility] lung transplant team on 08/24/2021 and was found to have a 1.9 cm spiculated nodule in the left lower lobe requiring further workup but even without cancer she would likely not benefit from a transplant. will perform echocardiogram wiht bubble study. History of Present Illness History of Present Illness Consult date: 09/07/22 Chief complaint: Pneumonia/COPD Narrative: 09/07/2022: This is a new pulmonary consult for COPD and pneumonia 72-year-old with a history of GOLD grade 4 group E COPD with chronic hypercarbic and hypoxemic respiratory failure on home noninvasive trilogy and 3 L nasal cannula oxygen 24-7, pulmonary hypertension on sildenafil,and lung nodules. Regarding her COPD she is a 22 pack year history of tobacco use, quit 1997, an FEV1 of 19% predicted on 08/24/2021 (at [facility]), Home trilogy started in 10/2020, severe pulmonary hypertension by right heart catheterization on 10/03/2017 with a pulmonary pressure of 80 which improved
--- NOTE | 2022-09-07 11:30 | ECHO_ITS ---
Patient Info Name: Saima Bryant Age: 72 years : 1950 Gender: Female Ht: 67 in Wt: 104 lbs BSA: 1.48 m2 HR: 113 bpm BP: 135 / 71 mmHg Heart Rhythm: Sinus Rhythm Technical Quality: Good Exam Date: 09/07/2022 10:24 AM Exam Location: [facility] Patient Status: Inpatient Admit Date: 09/06/2022 Staff Ordering Physician: Chas Rodriguez MD Bartacker: Stephanie Lanier RDCS Attending Provider: Avery Avila MD Referring Physician: Анна Jansen MD; Exam Type: CA echo doppler w bubble study Study Info Indications - COPD, PNEUMONIA, EDEMA TO LOWER EXTREMITY Complete two-dimensional, color flow and Doppler transthoracic echocardiogram is performed with agitated saline. History/Risk Factors Hypertension: No Dyslipidemia: Yes Congenital Heart Disease (CHD): No Peripheral Arterial Disease (PAD): No Myocardial Infarction (ID): No Chronic Lung Disease: No Obesity: No Renal Disease: No Coronary Artery Disease (CAD) No Congestive Heart Failure (CHF): No Cardiomyopathy/LV Systolic Dysfunction: No Diabetes Mellitus: No COPD: On Meds, On Home Oxygen Tobacco Use: Former Cerebrovascular Disease: No Family History: Diabetes Mellitus Deep Vein Thrombosis (DVT): None Dialysis: None Frailty Scale (CSHA): 6: Moderately Frail Cardiac Arrest: No Summary 1. Left ventricular chamber dimension is normal. 2. Left ventricular systolic function is hyperdynamic, estimated at >70%. 3. The left ventricular diastolic function is grade I diastolic dysfunction. 4. E/e' 12 is mildly elevated. 5. Right ventricular systolic function is mildly reduced and with abnormal TAPSE 1.4 cm. 6. There is mild aortic valve sclerosis. 7. The mitral valve has moderately calcified annulus. 8. There is trace tricuspid valve regurgitation. 9. Moderate pulmonary hypertension, estimated pulmonary arterial systolic pressure is 58 mmHg. 10. Dilated inferior vena cava with >50% collapse upon inspiration consistent with elevated right atrial pressure, 10 mmHg. Left Ventricle E/e' 12 is mildly elevated. Left ventricular chamber dimension is normal. Left ventricular systolic function is hyperdynamic, estimated at >70%. The left ventricular diastolic function is grade I diastolic dysfunction. Right Ventricle Right ventricular systolic function is mildly reduced and with abnormal TAPSE 1.4 cm. Right ventricular chamber dimension is normal. Left Atria Left atrial chamber dimension is normal. Right Atria Right atrial chamber dimension is normal. Atrial Septum Agitated saline injection with and without valsalva maneuver opacified right side cardiac chambers without shunt to left side cardiac chambers. Intact interatrial septum visualized by 2D and agitated saline imaging. Aortic Valve The aortic valve is trileaflet. There is mild aortic valve sclerosis. There is no aortic valve stenosis. There is no aortic valve regurgitation. Pulmonic Valve There is no pulmonic regurgitation. Mitral Valve The mitral valve has moderately calcified annulus. There is no mitral valve stenosis. There is no mitral valve regurgitation. Tricuspid Valve There is trace tricuspid valve regurgitation. Moderate pulmonary hypertension, estimated pulmonary arterial systolic pressure is 58 mmHg. Pericardium/Pleural There is no pericardial effusion. Inferior Vena Cava Dilated inferior vena cava
[2022-09-07] MEDS: methylPREDNISolone SOD SUCC 40 MG VIAL 20 MG IV PUSH ×3 (12:08→23:27)
--- NOTE | 2022-09-07 12:10 | PCCCNOTE ---
On 09/07/22, the student, [Linda Warner ], provided care and completed [facility] documentation on this patient. I have reviewed the student's documentation and agree with the findings.
[2022-09-07 12:34] LABS: Influenza A QL RT-PCR Negative (Negative); Influenza B QL RT-PCR Negative (Negative); RSV RNA, RT-PCR Negative (Negative); SARS-CoV-2 RNA PCR Negative
--- NOTE | 2022-09-07 13:14 | PM.IMPN ---
Progress Note: A&P Assessment and Plan (1) Pneumonia: Code(s): J18.9 - Pneumonia, unspecified organism Status: Acute Assessment and Plan: Chest x-ray with new airspace opacities in right lower lobe consistent with pneumonia. The patient stated that she is allergic to many antibiotics. She is not sure she can take Rocephin or not. The patient also stated that nebulizer treatments make her more short of breath. The patient is chronically on oxygen between 2 and half to 3 L she is currently on 3.5 L. Continue with her inhalers. Azithromycin Rocephin and tolerating well Pulmonary on board Sputum and blood cultures are pending. Tailor antibiotic to culture and sensitivity (2) Severe pulmonary hypertension: Code(s): I27.20 - Pulmonary hypertension, unspecified Status: Acute Assessment and Plan: Continue with sildenafil (3) Advanced COPD: Code(s): J44.9 - Chronic obstructive pulmonary disease, unspecified Status: Acute Assessment and Plan: Continue with solumedrol Continue with her inhalers. The patient stated she cannot tolerate nebulizers. (4) CHF (congestive heart failure): Qualifiers: Heart failure type: unspecified Heart failure chronicity: chronic Qualified Code(s): I50.9 - Heart failure, unspecified Code(s): I50.9 - Heart failure, unspecified Status: Acute Assessment and Plan: Patient's last echo was 2018 where her EF was 60-65% BNP 1010 On IV diuresis 40 mg daily Plan Acute on chronic respiratory failure on home trilogy since 10/2020 and home oxygen Severe pulmonary hypertension patient referred for lung transplantation follows [facility] Pul[facility] no additional basal diameter treatment recommended. On sildenafil Left lower lobe 1.9 cm speculated nodule DVT prophylaxis Lovenox Subjective Date/time seen: 09/07/22 13:14 Interval history: This is a 72-year-old female patient who has a history of COPD and is on oxygen anywhere from 2 and half to 3 L. the patient stated that she uses inhalers at home and she cannot tolerate nebulizer treatments because it makes her too short of breath when she uses an albuterol treatment.? She denies any chest pain or fever.? The patient stated that she has a history of having pulmonary nodules and she is concerned about those.? The patient is currently on 3.5 L.? She has been short of breath.? She has been tachypneic.? She stated that she still losing weight because she just does not have appetite and she has been too short of breath.? Chest x-ray was read as no airspace opacities and right lower, consistent with pneumonia.? Severe emphysema.? Blood sugar 127.? BNP 1010.? Patient is negative for influenza A/B and COVID as well as RSV.? The patient was given Solu-Medrol Rocephin and azithromycin.? Chest x-ray was read as new airspace opacities and right lower lobe consistent with pneumonia.? Severe emphysema.? The patient is being admitted to observation status on the date of service of 09/06/2022. 09/07/2022: Feels about the same. Telemetry fluid. This with the nursing staff. Shortness of breath with minimal exertion. No leg swelling. No chest pain. Review of Systems Review of Systems: All systems reviewed & are unremarkable except as noted in HPI and below Exam Narrative: General:? Alert, in acute distress with pursed lip breathing, no tripoding. Thin. HEENMT:? Normocephalic. EOMI. Neck:?Normal visual inspection, full ROM. Chest:?Normal inspection of the chest. Respiratory:? Lungs very diminished to auscultation bilaterally without wheezing or rhonchi or crackles.? Respirations even and non-labored. Able to speak in complete sentences. Cardiovascular:? Mildly Tachycardic. Telemetry sinus tachycardia Skin:?Normal color. Extremities:?? radial pulse 2+. No edema, cyanosis, or clubbing. Neuro:?No focal neurological deficits.? Speech is clear. Objective Data Vital Signs
[2022-09-07] MEDS: guaiFENesin 600 MG/DEXTROMETHORPHAN 30 MG SR TAB 12 HR 1 TAB PO (20:05)
[2022-09-08] VITALS (14 sets, daily range): BP systolic 105–145; BP diastolic 56–81; PULSE 58–123; RESP 16–20; TEMP 36.1–36.7; O2SAT 93–100
[2022-09-08 05:04] LABS: Basophils Percent Auto 0.1 % (0.2-1.2); Hematocrit 37.2 % (37.0-47.0); Hemoglobin 11.4 g/dL (12.0-15.0); Immature Granulocyte Absolute 0.05 K/mm3 (0.00-0.031); Immature Granulocyte Percent A 0.5 % (0-0.5); Lymphocytes Absolute Auto 0.84 K/mm3 (0.9-3.2); Lymphocytes Percent Auto 7.6 % (18.3-44.2); Mean Corpuscular HGB Conc 30.6 g/dl (32-36); Mean Corpuscular Hemoglobin 30.4 pg (26-34); Mean Corpuscular Volume 99.2 fl (80-100); Mean Platelet Volume 9.1 fl (7.4-10.4); Monocytes Absolute Auto 0.4 K/mm3 (0.1-0.6); Monocytes Percent Auto 3.9 % (2.6-8.5); Neutrophils Absolute Auto 9.7 K/mm3 (1.3-6.7); Neutrophils Percent Auto 87.9 % (45.5-73.1); Platelet Count Result 209 k/mm3 (150-375); Red Blood Count 3.75 M/mm3 (4.2-5.4)
[2022-09-08] MEDS: methylPREDNISolone SOD SUCC 40 MG VIAL 20 MG IV PUSH (05:18)
[2022-09-08 05:23] LABS: Alanine Aminotransferase 28 U/L (6-35); Albumin Level 3.8 g/dL (3.5-5.1); Alkaline Phosphatase 54 U/L (38-126); Aspartate Amino Transferase 30 U/L (14-36); Bilirubin,Total 0.3 mg/dL (0.2-1.3); Blood Urea Nitrogen 41 mg/dL (7-17); Calcium 9.4 mg/dL (8.4-10.2); Carbon Dioxide > 40 mmol/L (22-30); Chloride 92 mmol/L (98-107); Estimated CRCL calculation 41 ml/min; Estimated Glomerular Filt Rate > 60; Glucose 158 mg/dL (65-110); Magnesium 2.2 mg/dL (1.6-2.3); Potassium 4.2 mmol/L (3.4-5.0); Sodium 136 mmol/L (137-145)
[2022-09-08] MEDS: SILDENAFIL CITRATE 20 MG TABLET PO ×3 (06:36→18:31)
[2022-09-08] MEDS: FLUTICASONE/UMECLIDIN/VILANTER 200-62.5-25 MCG ELLIPTA 1 PUFF INHALATION (07:53)
[2022-09-08] MEDS: FUROSEMIDE INJ 40 MG/4 ML VIAL IV PUSH (08:45)
[2022-09-08] MEDS: ENOXAPARIN 40 MG/0.4 ML SYRINGE SUB-Q (08:45)
--- NOTE | 2022-09-08 11:41 | PM.IMPN ---
Progress Note: A&P Assessment and Plan (1) Pneumonia: Code(s): J18.9 - Pneumonia, unspecified organism Status: Acute Assessment and Plan: Chest x-ray with new airspace opacities in right lower lobe consistent with pneumonia. The patient stated that she is allergic to many antibiotics. She is not sure she can take Rocephin or not. The patient also stated that nebulizer treatments make her more short of breath. The patient is chronically on oxygen between 2 and half to 3 L she is currently on 3.5 L. Continue with her inhalers. Azithromycin Rocephin and tolerating well Pulmonary on board Sputum and blood cultures are pending. Tailor antibiotic to culture and sensitivity (2) Severe pulmonary hypertension: Code(s): I27.20 - Pulmonary hypertension, unspecified Status: Acute Assessment and Plan: Continue with sildenafil (3) Advanced COPD: Code(s): J44.9 - Chronic obstructive pulmonary disease, unspecified Status: Acute Assessment and Plan: Continue with solumedrol Continue with her inhalers. The patient stated she cannot tolerate nebulizers. Steroid to oral prednisone today Leukocytosis due to steroid (4) CHF (congestive heart failure): Qualifiers: Heart failure type: unspecified Heart failure chronicity: chronic Qualified Code(s): I50.9 - Heart failure, unspecified Code(s): I50.9 - Heart failure, unspecified Status: Acute Assessment and Plan: Patient's last echo was 2018 where her EF was 60-65% BNP 1010 On IV diuresis 40 mg daily Plan Acute on chronic respiratory failure on home trilogy since 10/2020 and home oxygen Severe pulmonary hypertension patient referred for lung transplantation follows [facility] Pulmonary hypertension Clinic no additional basal diameter treatment recommended. On sildenafil Left lower lobe 1.9 cm speculated nodule DVT prophylaxis Lovenox Subjective Date/time seen: 09/08/22 11:41 Interval history: This is a 72-year-old female patient who has a history of COPD and is on oxygen anywhere from 2 and half to 3 L. the patient stated that she uses inhalers at home and she cannot tolerate nebulizer treatments because it makes her too short of breath when she uses an albuterol treatment.? She denies any chest pain or fever.? The patient stated that she has a history of having pulmonary nodules and she is concerned about those.? The patient is currently on 3.5 L.? She has been short of breath.? She has been tachypneic.? She stated that she still losing weight because she just does not have appetite and she has been too short of breath.? Chest x-ray was read as no airspace opacities and right lower, consistent with pneumonia.? Severe emphysema.? Blood sugar 127.? BNP 1010.? Patient is negative for influenza A/B and COVID as well as RSV.? The patient was given Solu-Medrol Rocephin and azithromycin.? Chest x-ray was read as new airspace opacities and right lower lobe consistent with pneumonia.? Severe emphysema.? The patient is being admitted to observation status on the date of service of 09/06/2022. 09/07/2022: Feels about the same. Telemetry fluid. This with the nursing staff. Shortness of breath with minimal exertion. No leg swelling. No chest pain. 09/08/2022: No overnight events. Shortness of breath on exertion. No leg swelling. Denies any chest pain. Remains afebrile. Review of Systems Review of Systems: All systems reviewed & are unremarkable except as noted in HPI and below Exam Narrative: General:? Alert, in acute distress with pursed lip breathing, no tripoding. Thin. HEENMT:? Normocephalic. EOMI. Neck:?Normal visual inspection, full ROM. Chest:?Normal inspection of the chest. Respiratory:? Lungs very diminished to auscultation bilaterally without wheezing or rhonchi or crackles.? Respirations even and non-labored. Able to speak in complete sentences. Cardiovascular:? Mildly Tachycardic. Telemetry
[2022-09-08] MEDS: predniSONE 20 MG TABLET 40 MG PO (13:17)
--- NOTE | 2022-09-08 13:23 | PM.PNPUL ---
Progress Note: A&P Assessment and Plan (1) Pneumonia: Code(s): J18.9 - Pneumonia, unspecified organism Status: Acute Assessment and Plan: Patient presents with progressive worsening shortness of breath at rest and dyspnea on exertion, she is afebrile, she has no white blood cell count, she does have new right lower lobe infiltrate compared to chest x-ray on 08/12/2022 she is being treated with ceftriaxone and azithromycin for community-acquired pneumonia. Sputum Gram stain demonstrates a few white blood cells, few epithelial cells, few mixed bacterial jayce culture is pending. Plan: I will send covid, RSV and influenza. Will send urine for Legionella, urine for pneumococcal antigen and serum for mycoplasma IgM. continue ceftriaxone and azithromycin, started 09/06. 09/08 Patient wore a home noninvasive ventilator last night and did well. She did sleep a little bit better but states that she still feels about the same as when she presented. Her white blood cell count is 11.0, creatinine is 0.8. She has no wheezing on exam and I will change his Solu-Medrol to prednisone. Plan: Continue ceftriaxone and azithromycin, today is day 3. (2) Advanced COPD: Code(s): J44.9 - Chronic obstructive pulmonary disease, unspecified Status: Acute Assessment and Plan: GOLD grade 4 group e COPD Regarding her COPD she has a 22 pack year history of tobacco use, quit 1997, an FEV1 of 19% predicted on 08/24/2021 (at [facility]), Home trilogy started in 10/2020, severe pulmonary hypertension by right heart catheterization on 10/03/2017 with a pulmonary pressure of 80 which improved with sildenifil to RVSP of 35 on 04/09/2019, hypoxemic respiratory failure on home oxygen 3 L 23/01. she cannot tolerate any nebulized medicine and states that breztri makes her breathing worse. She is maintained on trilogy 09/07/21 Patient currently has no wheezing, Change in her cough or phlegm production. She does have new infiltrates in her right lower lobe and is being treated for pneumonia. At this time I am not convinced she has a COPD exacerbation. nevertheless she has received steroids and states she is doing better today. I will decrease her Solu-Medrol to 20 Q 6 today. will change her to trilogy 200 starting 09/08. 09/08 She has no wheezing on exam and I will change his Solu-Medrol to prednisone 40 Q day. Continue trilogy inhaler at 200 mcg as she cannot tolerate any nebulization treatments.. (3) Severe pulmonary hypertension: Code(s): I27.20 - Pulmonary hypertension, unspecified Status: Acute Assessment and Plan: Severe pulmonary hypertension by right heart catheterization on 10/03/2017 with a pulmonary pressure of 80 which improved with sildenifil to RVSP of 35 on 04/09/2019. Patient was evaluated by the [place] pulmonary vascular service on 12/12/2017 and it was? felt that no additional therapies would help her hemodynamics and symptoms and that she should be referred for lung transplantation.? Patient referred to transplant clinic for evaluation but did not return. Patient was seen by her passenger interline clerk who repeated an echocardiogram on 07/30/2020 that demonstrated worsening pulmonary hypertension with moderately enlarged right ventricle, reduced right ventricular systolic function and mild TR with a estimated RVSP of 111. I discussed with [facility] Pulmonary hypertension [facility] on 07/21/2021 and they recommended no additional vasodilators and referred to lung transplant clinic. Evaluated by [facility] lung transplant team on 08/24/2021 and was found to have a 1.9 cm spiculated nodule in the left lower lobe requiring further workup but even without cancer she would likely not benefit from a transplant. will perform echocardiogram wiht bubble study. 09/07 Echocardiogram demonstrated LVEF greater than 70%, grade 1 diastolic dysfunction, mildly decreased RV function with trace tricuspid regurg and a PA
--- NOTE | 2022-09-08 14:00 | PC.NURSE ---
HR 140s with activity, 110s at rest. Dr. Dave made aware. Reports metoprolol may cause bronchospasm. Will discuss with pt. No new orders noted.
[2022-09-09] VITALS (21 sets, daily range): BP systolic 103–140; BP diastolic 51–83; PULSE 67–127; RESP 16–20; TEMP 36.1–36.8; O2SAT 85–100
[2022-09-09 05:00] LABS: Basophils Percent Auto 0.1 % (0.2-1.2); Hematocrit 38.6 % (37.0-47.0); Hemoglobin 11.8 g/dL (12.0-15.0); Immature Granulocyte Absolute 0.03 K/mm3 (0.00-0.031); Immature Granulocyte Percent A 0.3 % (0-0.5); Lymphocytes Absolute Auto 1.87 K/mm3 (0.9-3.2); Lymphocytes Percent Auto 20.8 % (18.3-44.2); Mean Corpuscular HGB Conc 30.6 g/dl (32-36); Mean Corpuscular Hemoglobin 31.3 pg (26-34); Mean Corpuscular Volume 102.4 fl (80-100); Mean Platelet Volume 8.8 fl (7.4-10.4); Monocytes Absolute Auto 0.9 K/mm3 (0.1-0.6); Monocytes Percent Auto 9.4 % (2.6-8.5); Neutrophils Absolute Auto 6.2 K/mm3 (1.3-6.7); Neutrophils Percent Auto 69.4 % (45.5-73.1); Platelet Count Result 194 k/mm3 (150-375); Red Blood Count 3.77 M/mm3 (4.2-5.4); Red Cell Distribution Width 13.1 % (11.5-14.5)
[2022-09-09 05:15] LABS: Alanine Aminotransferase 29 U/L (6-35); Albumin Level 3.6 g/dL (3.5-5.1); Alkaline Phosphatase 50 U/L (38-126); Aspartate Amino Transferase 30 U/L (14-36); Bilirubin,Total 0.3 mg/dL (0.2-1.3); Blood Urea Nitrogen 38 mg/dL (7-17); Calcium 9.1 mg/dL (8.4-10.2); Carbon Dioxide > 40 mmol/L (22-30); Chloride 91 mmol/L (98-107); Estimated CRCL calculation 47 ml/min; Estimated Glomerular Filt Rate > 60; Glucose 113 mg/dL (65-110); Magnesium 2.3 mg/dL (1.6-2.3); Sodium 138 mmol/L (137-145)
[2022-09-09] MEDS: FLUTICASONE/UMECLIDIN/VILANTER 200-62.5-25 MCG ELLIPTA 1 PUFF INHALATION (08:39)
[2022-09-09] MEDS: ENOXAPARIN 40 MG/0.4 ML SYRINGE SUB-Q (08:41)
[2022-09-09] MEDS: SILDENAFIL CITRATE 20 MG TABLET PO ×3 (08:41→18:04)
[2022-09-09] MEDS: predniSONE 20 MG TABLET 40 MG PO (08:41)
[2022-09-09] MEDS: FUROSEMIDE 40 MG TABLET PO (08:42)
--- NOTE | 2022-09-09 09:01 | P.CDI_ITS ---
CDI Query Clarified Diagnosis Clarified Diagnosis: BMI 16.3 Nutritional Diagnostic Statement Moderate malnutrition related to increased protein and energy needs in the setting of chronic disease (COPD) as evidence by less than 75% intake of estimated needs for more than 7 days, -6% weight loss in 1 month and noted NFPE findings Please refer to the Comprehensive Nutritional Assessment for more information. Please clarify severity of protein calorie malnutrition * Mild * Moderate * Severe * Other/Unspecified <Christen Obrien RN - Last Filed: 09/09/22 09:07> Provider Comments moderate malnutrition <Rito Dave MD - Last Filed: 09/10/22 15:50>
--- NOTE | 2022-09-09 09:09 | P.CDI_ITS ---
CDI Query Clarified Diagnosis Clarified Diagnosis: Elevated BNP on 09/06/22 lab work. CHF noted on the assessment and plan. Documented history of CHF. Furosemide listed as a home medication. Pt receiving furosemide. Pt with complaints of dyspnea on exertion. Please specify type and acuity of heart failure if known. * Acute * Chronic * Acute on Chronic * Unknown * Systolic * Diastolic * Combined Systolic and Diastolic * Unknown <Christen Obrien RN - Last Filed: 09/09/22 09:14> Provider Comments chronic diastolic heart failure <Rito Dave MD - Last Filed: 09/10/22 15:49>
--- NOTE | 2022-09-09 11:50 | PM.PNPUL ---
Progress Note: A&P Assessment and Plan (1) Pneumonia: Code(s): J18.9 - Pneumonia, unspecified organism Status: Acute Assessment and Plan: Patient presents with progressive worsening shortness of breath at rest and dyspnea on exertion, she is afebrile, she has no white blood cell count, she does have new right lower lobe infiltrate compared to chest x-ray on 08/12/2022 she is being treated with ceftriaxone and azithromycin for community-acquired pneumonia. Sputum Gram stain demonstrates a few white blood cells, few epithelial cells, few mixed bacterial jayce culture is pending. Plan: I will send covid, RSV and influenza. Will send urine for Legionella, urine for pneumococcal antigen and serum for mycoplasma IgM. continue ceftriaxone and azithromycin, started 09/06. 09/08 Patient wore a home noninvasive ventilator last night and did well. She did sleep a little bit better but states that she still feels about the same as when she presented. Her white blood cell count is 11.0, creatinine is 0.8. She has no wheezing on exam and I will change his Solu-Medrol to prednisone. Plan: Continue ceftriaxone and azithromycin, today is day 3. 09/09 The patient tells me she is doing better today and breathing normal at rest. She does have dyspnea on exertion walking to the bathroom but feels it is improved. Currently she is on 3 L nasal cannula saturations 98%. White blood cell count is 9.0, creatinine is 0.7. She tolerated her home noninvasive ventilator with 2.5 L nasal cannula underneath the mask last night. CT scan of the chest demonstrates severe panlobular emphysema, right lower lobe pneumonia and stable nodules. Plan: Continue ceftriaxone and azithromycin, today is day 4. If the patient remains stable overnight will plan on discharge on 09/10/2022 on these medications Cefdinir 300 mg p.o. q.day x5 days Trelegy 200/62.5/25 at 1 puff q.day Rescue albuterol 2 puffs q.4 hours p.r.n. shortness of breath and wheezing. Oxygen at rest and with ambulation per formal home O2 assessment which I have ordered for today. With naps and sleeps: Patient is on AVAPS-AE mode with a breath rate of auto, tidal volume 220, minimum EPAP 7, maximal EPAP 7, minimal pressure support 5, maximal pressure support 15, rise time 4.0 with 2.5 L NC under mask. ?? Discussed with Dr. Dave. Will follow with you (2) Advanced COPD: Code(s): J44.9 - Chronic obstructive pulmonary disease, unspecified Status: Acute Assessment and Plan: GOLD grade 4 group e COPD Regarding her COPD she has a 22 pack year history of tobacco use, quit 1997, an FEV1 of 19% predicted on 08/24/2021 (at [facility]), Home trilogy started in 10/2020, severe pulmonary hypertension by right heart catheterization on 10/03/2017 with a pulmonary pressure of 80 which improved with sildenifil to RVSP of 35 on 04/09/2019, 07/30/2020 RVSP 111, hypoxemic respiratory failure on home oxygen 3 L 23/01. she cannot tolerate any nebulized medicine and states that breztri makes her breathing worse. She is maintained on trelegy. last hospitalization 08/09/2020 Patient is on AVAPS-AE mode with a breath rate of auto, tidal volume 220, minimum EPAP 7, maximal EPAP 7, minimal pressure support 5, maximal pressure support 15, rise time 4.0, 2.5 L NC under mask.?? 09/07/21 Patient currently has no wheezing, change in her cough or phlegm production. She does have new infiltrates in her right lower lobe and is being treated for pneumonia. At this time I am not convinced she has a COPD exacerbation. nevertheless she has received steroids and states she is doing better today. I will decrease her Solu-Medrol to 20 Q 6 today. will change her to trelegy 200 starting 09/08. 09/08 She has no wheezing on exam and I will change his Solu-Medrol to prednisone 40 Q day. Continue trilogy inhaler at 200 mcg as she cannot tolerate any nebulization treatments. 09/09 No wheezing. Continue prednisone 40 mg p.o.
--- NOTE | 2022-09-09 12:32 | PM.IMPN ---
Progress Note: A&P Assessment and Plan (1) Pneumonia: Code(s): J18.9 - Pneumonia, unspecified organism Status: Acute Assessment and Plan: Chest x-ray with new airspace opacities in right lower lobe consistent with pneumonia. The patient stated that she is allergic to many antibiotics. She is not sure she can take Rocephin or not. The patient also stated that nebulizer treatments make her more short of breath. The patient is chronically on oxygen between 2 and half to 3 L she is currently on 3.5 L. Continue with her inhalers. Azithromycin Rocephin and tolerating well Pulmonary on board Sputum culture growth of normal oropharyngeal jayce blood culture no growth to date Tailor antibiotic to culture and sensitivity CT chest right lower lobe pneumonia severe emphysema (2) Severe pulmonary hypertension: Code(s): I27.20 - Pulmonary hypertension, unspecified Status: Acute Assessment and Plan: Continue with sildenafil (3) Advanced COPD: Code(s): J44.9 - Chronic obstructive pulmonary disease, unspecified Status: Acute Assessment and Plan: Continue with solumedrol Continue with her inhalers. The patient stated she cannot tolerate nebulizers. Steroid to oral prednisone today Leukocytosis due to steroid (4) CHF (congestive heart failure): Qualifiers: Heart failure type: unspecified Heart failure chronicity: chronic Qualified Code(s): I50.9 - Heart failure, unspecified Code(s): I50.9 - Heart failure, unspecified Status: Acute Assessment and Plan: Patient's last echo was 2019 where her EF was 60-65% BNP 1010 On IV diuresis 40 mg daily. Change to oral Plan Acute on chronic respiratory failure on home trilogy since 10/2020 and home oxygen Severe pulmonary hypertension patient referred for lung transplantation follows [facility] no additional basal diameter treatment recommended. On sildenafil Left lower lobe 1.9 cm speculated nodule DVT prophylaxis Lovenox Subjective Date/time seen: 09/09/22 12:32 Interval history: This is a 72-year-old female patient who has a history of COPD and is on oxygen anywhere from 2 and half to 3 L. the patient stated that she uses inhalers at home and she cannot tolerate nebulizer treatments because it makes her too short of breath when she uses an albuterol treatment.? She denies any chest pain or fever.? The patient stated that she has a history of having pulmonary nodules and she is concerned about those.? The patient is currently on 3.5 L.? She has been short of breath.? She has been tachypneic.? She stated that she still losing weight because she just does not have appetite and she has been too short of breath.? Chest x-ray was read as no airspace opacities and right lower, consistent with pneumonia.? Severe emphysema.? Blood sugar 127.? BNP 1010.? Patient is negative for influenza A/B and COVID as well as RSV.? The patient was given Solu-Medrol Rocephin and azithromycin.? Chest x-ray was read as new airspace opacities and right lower lobe consistent with pneumonia.? Severe emphysema.? The patient is being admitted to observation status on the date of service of 09/06/2022. 09/07/2022: Feels about the same. Telemetry fluid. This with the nursing staff. Shortness of breath with minimal exertion. No leg swelling. No chest pain. 09/08/2022: No overnight events. Shortness of breath on exertion. No leg swelling. Denies any chest pain. Remains afebrile. 09/09/2022: Feeling better. Shortness of breath on exertion persists. No leg swelling. No chest pain. Still has some cough. Chest x-ray reviewed. Labs reviewed. She had a CT chest done today Review of Systems Review of Systems: All systems reviewed & are unremarkable except as noted in HPI and below Exam Narrative: General:? Alert, in acute distress with pursed lip breathing, no tripoding. Thin. HEENMT:? Normocephalic
--- NOTE | 2022-09-09 14:37 | HOMEO2EVAL ---
Evaluation was performed at [facility] Home Oxygen Evaluation RC: Home Oxygen (O2) Evaluation Start: 09/09/22 10:06 Freq: ONCE Status: Active Protocol: RPE Activity Type Activity Date Activity User E-sign Co-sign Detail Recorded Client Recorded Date Recorded By Document 09/09/22 13:45 [email or web address] [email or web address] 09/09/22 14:37 DJO Document 09/09/22 13:50 [email or web address] [email or web address] 09/09/22 14:37 DJO Document 09/09/22 13:55 [email or web address] [email or web address] 09/09/22 14:37 DJO Document 09/09/22 14:00 [email or web address] [email or web address] 09/09/22 14:37 DJO Document 09/09/22 14:05 [email or web address] [email or web address] 09/09/22 14:37 DJO Document 09/09/22 14:10 [email or web address] [email or web address] 09/09/22 14:37 DJO Document 09/09/22 14:15 [email or web address] [email or web address] 09/09/22 14:37 DJO Document 09/09/22 14:30 [email or web address] [email or web address] 09/09/22 14:37 DJO 09/09/22 09/09/22 09/09/22 13:45 13:50 13:55 Home O2 Evaluation [Oxygen] -Test Phase Resting Resting Resting -Oxygen Delivery Room Air Nasal Cannula Nasal Cannula -Oxygen Flow Rate (L/min) 1 2 [Pulse Oximetry] -Pulse Oximetry (90-100 %) 85 L 86 L 87 L [Pulse Rate] -Pulse Rate (60-100 beats/min) 105 H 105 H 102 H [Evaluation] -Activity Tolerance [Charges] -Treatment Charges O2 Evaluation - Inpatient 09/09/22 09/09/22 09/09/22 14:00 14:05 14:10 Home O2 Evaluation [Oxygen] -Test Phase Resting Exercise Exercise -Oxygen Delivery Nasal Cannula Nasal Cannula Nasal Cannula -Oxygen Flow Rate (L/min) 3 3 4 [Pulse Oximetry] -Pulse Oximetry (90-100 %) 91 85 L 88 L [Pulse Rate] -Pulse Rate (60-100 beats/min) 124 H 125 H [Evaluation] -Activity Tolerance [Charges] -Treatment Charges 09/09/22 09/09/22 14:15 14:30 Home O2 Evaluation [Oxygen] -Test Phase Exercise Resting -Oxygen Delivery Nasal Cannula Nasal Cannula -Oxygen Flow Rate (L/min) 5 3 [Pulse Oximetry] -Pulse Oximetry (90-100 %) 90 91 [Pulse Rate] -Pulse Rate (60-100 beats/min) 127 H 103 H [Evaluation] -Activity Tolerance Fair [Charges] -Treatment Charges
--- NOTE | 2022-09-09 14:43 | PCRCNOTE ---
HOME O2 EVAL COMPLETE, 3L AT REST AND 5 L WITH ACTIVITY. PT HAS HOME O2 WITH URSZULA. TO BRING IN TANK FOR DISCHARGE.
[2022-09-09] MEDS: guaiFENesin 600 MG/DEXTROMETHORPHAN 30 MG SR TAB 12 HR 1 TAB PO (20:15)
[2022-09-10] VITALS (9 sets, daily range): BP systolic 116–142; BP diastolic 63–76; PULSE 63–108; RESP 16–20; TEMP 36.1–37; O2SAT 95–100
[2022-09-10 05:07] LABS: Alveolar/Arterial O2 Gradient 44.6 mmHg; Base Excess ABG 14.5 mEq/l (+/-2.0); Carboxyhemoglobin 0.2 % THb (0-2.0); Fractional Inspired Oxygen 30 %; HCO3 ABG 42.9 mEq/l (22.0-26.0); Methemoglobin ABG 0.4 %THb (0-1.5); Oxygen Content ABG 16.9 %vol (16.0-22.0); Oxygen Saturation ABG 95.4 % (95.0-100.0); Oxyhemoglobin 94.9 % THb (90.0-100.0); PO2 ABG 82.2 mmHg (80.0-100.0); PO2 FiO2 Ratio Arterial Blood 2.74 %; Reduced Hemoglobin 4.5 %THb (0-5.0); Total Hemoglobin 12.6 g/dL (12.0-18.0); pH ABG 7.381 (7.350-7.450)
[2022-09-10 05:08] LABS: PCO2 ABG 74.1 mmHg (35.0-45.0); Site Drawn RIGHT BRACHIAL
[2022-09-10 05:09] LABS: Device OTHER DEVICE
[2022-09-10 05:10] LABS: Liters per Minute 2.5 LPM
[2022-09-10] MEDS: SILDENAFIL CITRATE 20 MG TABLET PO ×2 (06:24→12:12)
[2022-09-10 06:30] LABS: Eosinophils Percent Auto 0.6 % (0-4.4); Hematocrit 38.8 % (37.0-47.0); Hemoglobin 11.8 g/dL (12.0-15.0); Immature Granulocyte Absolute 0.01 K/mm3 (0.00-0.031); Immature Granulocyte Percent A 0.1 % (0-0.5); Lymphocytes Percent Auto 31.5 % (18.3-44.2); Mean Corpuscular HGB Conc 30.4 g/dl (32-36); Mean Corpuscular Hemoglobin 30.7 pg (26-34); Mean Platelet Volume 8.6 fl (7.4-10.4); Monocytes Absolute Auto 0.7 K/mm3 (0.1-0.6); Monocytes Percent Auto 9.6 % (2.6-8.5); Neutrophils Absolute Auto 4.1 K/mm3 (1.3-6.7); Neutrophils Percent Auto 58.2 % (45.5-73.1); Platelet Count Result 183 k/mm3 (150-375); Red Blood Count 3.84 M/mm3 (4.2-5.4); Red Cell Distribution Width 12.9 % (11.5-14.5)
[2022-09-10 06:49] LABS: Alanine Aminotransferase 29 U/L (6-35); Albumin Level 3.6 g/dL (3.5-5.1); Alkaline Phosphatase 50 U/L (38-126); Aspartate Amino Transferase 24 U/L (14-36); Bilirubin,Total 0.4 mg/dL (0.2-1.3); Blood Urea Nitrogen 35 mg/dL (7-17); Calcium 8.8 mg/dL (8.4-10.2); Carbon Dioxide > 40 mmol/L (22-30); Chloride 93 mmol/L (98-107); Estimated CRCL calculation 49 ml/min; Estimated Glomerular Filt Rate > 60; Glucose 91 mg/dL (65-110); Magnesium 2.2 mg/dL (1.6-2.3); Potassium 3.7 mmol/L (3.4-5.0); Sodium 140 mmol/L (137-145)
[2022-09-10] MEDS: FUROSEMIDE 40 MG TABLET PO (08:04)
[2022-09-10] MEDS: ENOXAPARIN 40 MG/0.4 ML SYRINGE SUB-Q (08:04)
[2022-09-10] MEDS: predniSONE 20 MG TABLET 40 MG PO (08:04)
[2022-09-10] MEDS: FLUTICASONE/UMECLIDIN/VILANTER 200-62.5-25 MCG ELLIPTA 1 PUFF INHALATION (08:16)
--- NOTE | 2022-09-10 10:47 | PM.PNPUL ---
Progress Note: A&P Assessment and Plan (1) Pneumonia: Code(s): J18.9 - Pneumonia, unspecified organism Status: Acute Assessment and Plan: Patient presents with progressive worsening shortness of breath at rest and dyspnea on exertion, she is afebrile, she has no white blood cell count, she does have new right lower lobe infiltrate compared to chest x-ray on 08/12/2022 she is being treated with ceftriaxone and azithromycin for community-acquired pneumonia. Sputum Gram stain demonstrates a few white blood cells, few epithelial cells, few mixed bacterial jayce culture is pending. Plan: I will send covid, RSV and influenza. Will send urine for Legionella, urine for pneumococcal antigen and serum for mycoplasma IgM. continue ceftriaxone and azithromycin, started 09/06. 09/08 Patient wore a home noninvasive ventilator last night and did well. She did sleep a little bit better but states that she still feels about the same as when she presented. Her white blood cell count is 11.0, creatinine is 0.8. She has no wheezing on exam and I will change his Solu-Medrol to prednisone. Plan: Continue ceftriaxone and azithromycin, today is day 3. 09/09 The patient tells me she is doing better today and breathing normal at rest. She does have dyspnea on exertion walking to the bathroom but feels it is improved. Currently she is on 3 L nasal cannula saturations 98%. White blood cell count is 9.0, creatinine is 0.7. She tolerated her home noninvasive ventilator with 2.5 L nasal cannula underneath the mask last night. CT scan of the chest demonstrates severe panlobular emphysema, right lower lobe pneumonia and stable nodules. Plan: Continue ceftriaxone and azithromycin, today is day 4. 09/10 Patient tells me she is breathing back at her baseline. She has minimal cough and phlegm production. Her white blood cell count of 7.0, creatinine is 0.7. Currently she is on 2.5 L nasal cannula saturation 99%. Patient is scheduled to receive day 5 of ceftriaxone and azithromycin at noon today. From a pulmonary perspective patient is ready to be discharged on these pulmonary medications: Cefdinir 300 mg p.o. q.day x5 days Trelegy 200/62.5/25 at 1 puff q.day Rescue albuterol 2 puffs q.4 hours p.r.n. shortness of breath and wheezing. Oxygen 3 L at rest and 5 with ambulation. With naps and sleeps: Patient is on AVAPS-AE mode with a breath rate of auto, tidal volume 220, minimum EPAP 7, maximal EPAP 7, minimal pressure support 5, maximal pressure support 15, rise time 4.0 with 2 L NC under mask. ?? Follow-up in the Pulmonary Clinic in 3-4 weeks. I gave the patient our business card and informed our deputy head. Discussed with Dr. Dave. (2) Advanced COPD: Code(s): J44.9 - Chronic obstructive pulmonary disease, unspecified Status: Acute Assessment and Plan: GOLD grade 4 group e COPD Regarding her COPD she has a 22 pack year history of tobacco use, quit 1997, an FEV1 of 19% predicted on 08/24/2021 (at [facility]), Home trilogy started in 10/2020, severe pulmonary hypertension by right heart catheterization on 10/03/2017 with a pulmonary pressure of 80 which improved with sildenifil to RVSP of 35 on 04/09/2019, 07/30/2020 RVSP 111, hypoxemic respiratory failure on home oxygen 3 L 24/7. she cannot tolerate any nebulized medicine and states that breztri makes her breathing worse. She is maintained on trelegy. last hospitalization 08/09/2020 Patient is on AVAPS-AE mode with a breath rate of auto, tidal volume 220, minimum EPAP 7, maximal EPAP 7, minimal pressure support 5, maximal pressure support 15, rise time 4.0, 2.5 L NC under mask.?? 09/07/21 Patient currently has no wheezing, change in her cough or phlegm production. She does have new infiltrates in her right lower lobe and is being treated for pneumonia. At this time I am not convinced she has a COPD exacerbation. nevertheless she has received steroids and states she is doi
--- NOTE | 2022-09-10 13:16 | PM.DS ---
DS: Admitting Diagnosis Discharge Date 09/10/2022 Admitting Diagnosis shortness of breath DS: Discharge Diagnosis Discharge Diagnosis (1) Pneumonia: Code(s): J18.9 - Pneumonia, unspecified organism Status: Acute (2) Severe pulmonary hypertension: Code(s): I27.20 - Pulmonary hypertension, unspecified Status: Acute (3) Advanced COPD: Code(s): J44.9 - Chronic obstructive pulmonary disease, unspecified Status: Acute (4) CHF (congestive heart failure): Qualifiers: Heart failure type: unspecified Heart failure chronicity: chronic Qualified Code(s): I50.9 - Heart failure, unspecified Code(s): I50.9 - Heart failure, unspecified Status: Acute DS: Summary Hospital Course Hospital Course: # Pneumonia: Chest x-ray with new airspace opacities in right lower lobe consistent with pneumonia The patient stated that she is allergic to many antibiotics.? She is not sure she can take Rocephin or not.? The patient also stated that nebulizer treatments make her more short of breath. The patient is chronically on oxygen between 2 and half to 3 L she is currently on 3.5 L.Continue with her inhalers. Azithromycin Rocephin and tolerating well Pulmonary on board Sputum? culture growth of normal oropharyngeal jayce blood culture no growth to date Tailor antibiotic to culture and sensitivity CT chest right lower lobe pneumonia severe emphysema Switch antibiotic to cefdinir at discharge as suggested by Pulmonary # severe pulmonary hypertension: Continue with sildenafil # advanced COPD: Treated with solumedrol. Which was switched to prednisone complete the course of steroid during the hospital stay Continue with her inhalers.? The patient stated she? cannot tolerate nebulizers. Leukocytosis due to steroid # congestive heart failure: Patient's last echo was 2018 where her EF was 60-65% BNP 1010 On IV diuresis 40 mg daily.? Change to oral. Continue Lasix at discharge # Acute on chronic respiratory failure on home trilogy since 10/2020 and home oxygen home oxygen evaluation done prior to the admission # severe pulmonary hypertension patient referred for lung transplantation follows [facility] Pulmonary hypertension Clinic no additional vasodilator treatment recommended.? On sildenafil # Left lower lobe 1.9 cm speculated nodule # DVT prophylaxis Lovenox Time Spent with Patient Time attestation: Total time spent providing and/or coordinating discharge services: 45 minutes Exam Narrative: General:? Alert, in acute distress. Thin. HEENMT:? Normocephalic. EOMI. Neck:?Normal visual inspection, full ROM. Chest:?Normal inspection of the chest. Respiratory:? Lungs very diminished to auscultation bilaterally without wheezing or rhonchi or crackles.? Respirations even and non-labored. Able to speak in complete sentences. Cardiovascular:? regular rate and rhythm Skin:?Normal color. Extremities:?? radial pulse 2+. No edema, cyanosis, or clubbing. Neuro:?No focal neurological deficits.? Speech is clear. DS: Data Data Completed and Pending Completed studies during hospitalization: Exam Type: ? ? CA echo doppler w bubble study Study Info Indications ?? ? - COPD,? PNEUMONIA,? EDEMA TO LOWER EXTREMITY Complete two-dimensional, color flow and Doppler transthoracic echocardiogram is performed with agitated saline. Account #: ? ? [id number] History/Risk Factors Hypertension: ? ? No Dyslipidemia: ? ? Yes Congenital Heart Disease (CHD): ? ? No Peripheral Arterial Disease (PAD): ? ? No Myocardial Infarction (OH): ? ? No Chronic Lung Disease: ? ? No Obesity: ? ? No Renal Disease: ? ? No Coronary Artery Disease (CAD) ? ? No Congestive Heart Failure (CHF): ? ? No Cardiomyopathy/LV Systolic Dysfunction: ? ? No Diabetes Mellitus: ? ? No COPD: ? ? On Meds, On Home Oxygen Tobacco Use: ? ? Former Cerebrovascular Disease: ? ? No Family History: ? ? Diabetes Mellitus Deep Vei
[2022-09-11 05:43] LABS: Legionella pneumophila Ag Ur Not Detected (Not Detected)
[2022-09-11 13:53] LABS: Alpha-1-Antitrypsin, QN 207 mg/dL (83-199)
[2022-09-11 16:24] LABS: Pneumococcal Antigen Urine Not Detected (Not Detected)
[2022-09-11 19:23] LABS: Mycoplasma IgM Antibody Titer 228 U/mL (<770)
== END 2022-09-10 13:57 | disposition home or self-care (01) | DRG 193 ==
LOC: ANHED 13:15 → ANHIMU 15:06
PROVIDERS: Internal Medicine Pulmonary Disease; Nurse Practitioner; Admitting Provider Internal Medicine; Emergency Provider Emergency Medicine; PCP Family Medicine; Referring Provider Internal Medicine Critical Care Medicine; Visit Provider Internal Medicine
DX: J18.9 Pneumonia, unspecified organism (principal); J96.21 Acute and chronic respiratory failure with hypoxia; J96.22 Acute and chronic respiratory failure with hypercapnia; E44.0 Moderate protein-calorie malnutrition; Z68.1 Body mass index [BMI] 19.9 or less, adult; I50.32 Chronic diastolic (congestive) heart failure; J43.9 Emphysema, unspecified; I11.0 Hypertensive heart disease with heart failure; I27.20 Pulmonary hypertension, unspecified; R91.1 Solitary pulmonary nodule; Z20.822 Contact with and (suspected) exposure to COVID-19; E78.5 Hyperlipidemia, unspecified; Z99.81 Dependence on supplemental oxygen; Z98.42 Cataract extraction status, left eye; Z98.41 Cataract extraction status, right eye; Z90.721 Acquired absence of ovaries, unilateral; Z87.891 Personal history of nicotine dependence
CPT/HCPCS: 36415; 36600; 71045; 71046; 71250; 80053; 82103; 82104; 82375; 82805; 83050; 83735; 83880; 84439; 84443; 84480; 84484; 85025; 86738; 87040; 87070; 87205; 87449; 87637; 87899; 93005; 93306; 94618; 94640; 94667; 94668; 94762; 96365; 96366; 96367; 96372; 96374; 96375; 96376; 99285; A9270; G0378; J0456; J0696; J1650; J1940; J2920; J2930; J7512

== ENCOUNTER 2022-10-15 09:32 | Outpatient (CLI) | payer MEDICARE, SELFPAY ==
--- NOTE | ~2022-10-15 | XR_ITS ---
Clinical Indication: Shortness of breath, pneumonia PA and lateral views of the chest: Comparison: 09/09/2022 Findings: The lungs are clear, without evidence of focal consolidation or pleural effusion. COPD michelle servando of the lungs present. Stable prominence of the central pulmonary vasculature. Cardiomediastinal s ilhouette is within normal limits. Bones and soft tissues are unremarkable. Impression: COPD and possible pulmonary artery hypertension. No acute pulmonary disease evident. Reviewed, dictated and finalized at location M. Impression: COPD and possible pulmonary artery hypertension. No acute pulmonary disease evident.
== END 2022-10-15 09:33 | disposition home or self-care (01) ==
LOC: CHSIMG 09:33
PROVIDERS: PCP Family Medicine; Visit Provider Nurse Practitioner Family
DX: R06.09 Other forms of dyspnea (principal); J44.9 Chronic obstructive pulmonary disease, unspecified
CPT/HCPCS: 71046

== ENCOUNTER 2022-12-21 14:09 | Outpatient (CLI) | payer MEDICARE, SELFPAY ==
--- NOTE | ~2022-12-21 | CT_ITS ---
CT Scan of the Chest without Contrast: Clinical Indication: Lung nodule Technique: Contiguous sections were acquired throughout the chest without intravenous contrast. Dose reduction technique was used on this scan by utilizing automated exposure control and iterative recon struction technique. The dose-length product (DLP) was 60.39 mGy-cm. COMPARISON: 09/09/2022, 12/15/2021, 08/08/2020 Findings: Stable densely calcified left thyroid lobe nodule. There is no evidence of any significant mediastinal, hilar or axillary lymphadenopathy. Coronary halle ry calcifications are present. There is no evidence of pleural or pericardial effusion. There is a 2.6 x 1.5 cm nodule in the right lower lobe (axial image 67), at the site of previously id entified pneumonia. Stable 6 mm left lower lobe pulmonary nodule noted (axial image 85). There is sev ere emphysema. Images through the upper abdomen reveal no abnormalities. Impression: 2.6 x 1.5 cm right lower lobe pulmonary nodule. Diagnostic considerations include persistent pneumoni a, post inflammatory change, or possibly neoplastic lesion. Consider PET/CT to evaluate for metabolic activity, versus continued follow-up. Tissue sampling should also be considered, but the patient wou ld be at relatively high risk for pneumothorax given the severe emphysema present. Severe emphysema. Stable 6 mm left lower lobe pulmonary nodule. Reviewed, dictated and finalized at location . Impression: 2.6 x 1.5 cm right lower lobe pulmonary nodule. Diagnostic considerations inclu de persistent pneumonia, post inflammatory change, or possibly neoplastic lesio n. Consider PET/CT to evaluate for metabolic activity, versus continued follow- up. Tissue sampling should also be considered, but the patient would be at rela tively high risk for pneumothorax given the severe emphysema present. Severe emphysema. Stable 6 mm left lower lobe pulmonary nodule.
== END 2022-12-21 14:10 | disposition home or self-care (01) ==
PROVIDERS: PCP Family Medicine; Visit Provider Nurse Practitioner Family
DX: R91.1 Solitary pulmonary nodule (principal); J43.9 Emphysema, unspecified
CPT/HCPCS: 71250

== ENCOUNTER 2022-12-22 14:19 | Outpatient (CLI) | payer MEDICARE, SELFPAY ==
[2022-12-22 14:36] LABS: Base Excess ABG 6.2 mmol/L (0-2); Basophils Absolute Auto 0.03 K/mm3 (0.00-0.10); Basophils Percent Auto 0.4 % (0.0-1.0); Eosinophils Absolute Auto 0.08 K/mm3 (0.02-0.50); HCO3 ABG 32.9 mmol/L (23-29); Hematocrit 40.9 % (35.0-42.0); Hemoglobin 12.5 g/dL (11.7-13.8); Immature Granulocyte Absolute 0.02 K/mm3 (0.00-0.00); Immature Granulocyte Percent A 0.2 % (0.0-0.0); Lymphocytes Absolute Auto 1.86 K/mm3 (1.10-4.50); Lymphocytes Percent Auto 22.2 % (18.0-42.0); Mean Corpuscular HGB Conc 30.6 g/dL (32.0-36.0); Mean Corpuscular Hemoglobin 31.1 pg (27.0-31.0); Mean Corpuscular Volume 101.7 fL (78.0-102.0); Mean Platelet Volume 8.9 fl (9.2-11.8); Monocytes Absolute Auto 0.85 K/mm3 (0.10-0.90); Monocytes Percent Auto 10.2 % (2.0-11.0); Neutrophils Absolute Auto 5.5 K/mm3 (1.7-7.2); Oxygen Content ABG 18.4 %vol (16.0-22.0); Oxyhemoglobin 95.5 % (94-100); PCO2 ABG 56.7 mmHg (35-45); PO2 ABG 96.8 mmHg (75-85); Platelet Count Result 142 K/mm3 (150-420); Red Blood Count 4.02 M/mm3 (4.20-5.40); Red Cell Distribution Width 12.4 % (11.6-14.4); Total Hemoglobin 13.6 g/dL (12.0-18.0); White Blood Count 8.4 K/mm3 (4.8-10.8); pH ABG 7.38 (7.35-7.45)
[2022-12-22 14:42] LABS: Device NASAL CANNULA; Modified Allen's Test Pass; Site Drawn LEFT RADIAL
[2022-12-22 14:55] LABS: Alanine Aminotransferase 47 U/L (14-59); Albumin Level 3.6 g/dL (3.4-5.0); Alkaline Phosphatase 56 U/L (46-116); Anion Gap 4 mmol/L (8-16); Aspartate Amino Transferase 30 U/L (15-37); Bilirubin,Total 0.2 mg/dL (0.00-1.00); Blood Urea Nitrogen 28 mg/dL (7-18); Calcium 9.2 mg/dL (8.5-10.1); Carbon Dioxide 37 mmol/L (21-32); Chloride 101 mmol/L (98-108); Estimated Glomerular Filt Rate > 60; Glucose 115 mg/dL (70-99); Osmolality Calculated 300 mOsm/kg (285-295); Potassium 4.1 mmol/L (3.5-5.1); Sodium 142 mmol/L (136-145)
== END 2022-12-22 14:20 | disposition home or self-care (01) ==
LOC: CHSLAB 14:23
PROVIDERS: PCP Family Medicine; Visit Provider Nurse Practitioner Family
DX: J44.9 Chronic obstructive pulmonary disease, unspecified (principal); J18.9 Pneumonia, unspecified organism; J96.10 Chronic respiratory failure, unspecified whether with hypoxia or hypercapnia
CPT/HCPCS: 36415; 36600; 80053; 82805; 85025

== ENCOUNTER 2023-01-10 08:58 | Outpatient (CLI) | payer MEDICARE, SELFPAY ==
--- NOTE | ~2023-01-10 | PE_ITS ---
EXAMINATION: PET skull to mid thigh DATE: 01/10/2023 11:21 INDICATION: Solitary pulmonary nodule TECHNIQUE: Blood glucose level was 117 mg/dL. 10.212 mCi of 18-fluorodeoxyglucose (18-FDG) was admini stered i.v. Low dose computed tomography (CT) images were acquired from the base of the brain to the proximal thighs for attenuation correction and anatomic localization. Positron emission tomography (P ET) images were acquired in the same distribution beginning 68 minutes after injection. Images includ ing fused PET/CT images were reconstructed in axial, coronal, and sagittal planes. Automated exposure control technique was employed. The dose-length product was 481.20mGy-cm. COMPARISON: CT dated 12/21/2022, 09/09/2022 and 12/15/2021 PET/CT dated 09/14/2021 FINDINGS: Head/neck: Typical pattern of increased activity in the oral cavity, parotid glands, submandibular glands, oralia ngeal muscles and ocular muscles without CT correlate, likely physiologic. Additional likely physiolo gic diffuse increased uptake without CT correlate at the anterior cervical paraspinal muscles, right greater than left, and bilateral sternocleidomastoid muscles, left greater than right. No pathologica lly enlarged cervical lymphadenopathy or suspicious foci of increased FDG uptake in the visualized he ad or neck. Chest: Severe emphysema. Stable appearance of bandlike regions of discoid atelectasis/scarring extending donnell ng the bilateral major fissures. Unchanged 6 mm nodules in the right and left lower lobes without cor responding FDG uptake likely sequela of old granulomatous disease. The masslike opacity seen in the r ight lower lobe the most recent CT likely represented pneumonia with fluid/consolidation filling a cy stic space in the lung with air-fluid level seen at this location on the earlier CT dated 09/09/2021 a nd with near complete resolution of the fluid in the current study. There is minimal FDG activity at the periphery of the cavitary lesion with maximal SUV of 1.4. No pleural effusion. Heart size is norm al. No pericardial effusion. Coronary artery calcifications. Enlargement of the central pulmonary art eries consistent with pulmonary arterial hypertension. Thoracic aorta is normal in caliber. No pathol ogically enlarged or FDG avid thoracic lymphadenopathy. Abdomen/pelvis/proximal thighs: Physiologic renal accumulation and excretion of FDG activity in the kidneys, bladder and along portio ns of ureters. Normal degree and heterogenous pattern of increased uptake throughout the liver withou t radiologic correlate or dominant FDG avid lesion. The gallbladder, pancreas, spleen and bilateral a drenal glands are normal. Mild to moderate uptake scattered throughout the bowels without radiologic correlate, also likely physiologic. No other abnormal foci of increased FDG uptake or pathologically enlarged lymphadenopathy in the abdomen, pelvis or proximal thighs. Musculoskeletal: Physiologic diffuse increased activity throughout the musculature of the bilateral hands and forearms . Additional mild likely dependent pelvic uptake along the distal right teres minor tendon without ra diologic correlate. No suspicious lytic, blastic or FDG avid bone lesions. IMPRESSION: 1. Severe emphysema with no significant increased FDG uptake associated with a now primarily air-fill ed, previously consolidated cystic lung space in the right lower lobe corresponding to the masslike d ensity of concern noted on the most recent chest CT which was likely infectious in etiology. No other lesions suspicious for malignancy or metastatic disease. Recommend 6-12 month follow-up low-dose non contrast chest CT. Reviewed, dictated and finalized at location A.
[2023-01-10 09:29] LABS: Glucose Point of Care 117 mg/dl (65-105)
== END 2023-01-10 08:59 | disposition home or self-care (01) ==
PROVIDERS: PCP Family Medicine; Visit Provider Nurse Practitioner Family
DX: J18.9 Pneumonia, unspecified organism (principal); R91.1 Solitary pulmonary nodule; J43.9 Emphysema, unspecified
CPT/HCPCS: 78815; A9552

== ENCOUNTER 2023-02-20 08:22 | Outpatient (CLI) | payer MEDICARE, SELFPAY ==
[2023-02-20 09:04] LABS: Hemoglobin A1C 5.9 % (<5.7)
[2023-02-20 09:36] LABS: Alanine Aminotransferase 71 U/L (14-59); Albumin Level 3.7 g/dL (3.4-5.0); Alkaline Phosphatase 62 U/L (46-116); Anion Gap 1 mmol/L (8-16); Aspartate Amino Transferase 37 U/L (15-37); Bilirubin,Total 0.4 mg/dL (0.00-1.00); Blood Urea Nitrogen 24 mg/dL (7-18); Calcium 9.3 mg/dL (8.5-10.1); Carbon Dioxide 42 mmol/L (21-32); Chloride 100 mmol/L (98-108); Estimated Glomerular Filt Rate > 60; Glucose 123 mg/dL (70-99); HDL Direct 54 mg/dL (40-60); Osmolality Calculated 301 mOsm/kg (285-295); Potassium 4.5 mmol/L (3.5-5.1); Sodium 143 mmol/L (136-145); Triglycerides 106 mg/dL (0-150); Vitamin B12 1112 pg/mL (193-986)
[2023-02-20 09:39] LABS: Thyroid Stimulating Hormone Reflex 1.77 u/IU/mL (0.36-3.74)
[2023-02-20 09:53] LABS: Cholesterol 151 mg/dL (0-200); LDL Cholesterol Calculated 76 mg/dL (<130)
[2023-02-23 19:10] LABS: Vitamin D 25 Hydroxy 88 ng/mL (30-100)
== END 2023-02-20 08:23 | disposition home or self-care (01) ==
LOC: CHSLAB 08:24
PROVIDERS: PCP Family Medicine; Visit Provider Family Medicine
DX: E55.9 Vitamin D deficiency, unspecified (principal); E53.8 Deficiency of other specified B group vitamins; R73.9 Hyperglycemia, unspecified; I50.9 Heart failure, unspecified; I27.20 Pulmonary hypertension, unspecified; E78.5 Hyperlipidemia, unspecified; I10 Essential (primary) hypertension
CPT/HCPCS: 36415; 80053; 80061; 82306; 82607; 83036; 84443

== ENCOUNTER 2023-03-20 12:23 | Outpatient (CLI) | payer MEDICARE, SELFPAY ==
--- NOTE | ~2023-03-20 | US_ITS ---
EXAMINATION: US art doppler w press LE BI DATE: 03/20/2023 15:05 INDICATION: Peripheral vascular disease TECHNIQUE: Segmental pressures and plethysmographic and Doppler waveforms of the brachial and lower e xtremity arteries were obtained. COMPARISON: None. FINDINGS: Right and left brachial artery pressures of 135 mm Hg and 142 mm Hg, respectively, are concordant (no rmal difference <= 30 mmHg). The right ankle-brachial index (ABRAHAM) is 1.13 (normal >= 0.9-1). The right great toe-brachial index (T BI) is 0.63 (normal >= 0.6-0.8). Arterial waveforms are triphasic at the right femoral, popliteal and posterior tibial arteries and biphasic at the right dorsalis pedis artery with brisk systolic upstro kes throughout. The left ABRAHAM is 1.00. The left TBI is 0.62. Arterial waveforms are triphasic at the left femoral, pop liteal and posterior tibial arteries and biphasic at the left dorsalis pedis artery with brisk systol ic upstrokes throughout. IMPRESSION: 1. Possible mild arterial occlusive disease to bilateral lower limbs with normal right ABRAHAM but border line left ABRAHAM and borderline bilateral TBIs. Reviewed, dictated and finalized at location A. IMPRESSION: 1. Possible mild arterial occlusive disease to bilateral lower limbs with prince l right ABRAHAM but borderline left ABRAHAM and borderline bilateral TBIs.
--- NOTE | ~2023-03-20 | DEXA_ITS ---
Bone Density Report Name: YURI SALDIVAR Age: 72 Sex: Female Ethnicity: White Date of : 1950 Indication: postmenopausal; screening for osteoporosis; history of glucocorticoids; asthma or emphysema; Referring Provider: JERI CHAVEZ Study: Bone densitometry was performed. Exam Date: March 20, 2023 Accession number: [id number] Bone Density: Region BMD T-score Z-score Classification AP Spine(L1-L4) 0.868 -1.6 0.6 Osteopenia Femoral Neck (Left) 0.605 -2.2 -0.3 Osteopenia Total Hip (Left) 0.596 -2.8 -1.2 Osteoporosis Femoral Neck (Right) 0.604 -2.2 -0.3 Osteopenia Total Hip (Right) 0.687 -2.1 -0.4 Osteopenia Femoral Neck Mean 0.604 -2.2 -0.3 Osteopenia Total Hip Mean 0.642 -2.5 -0.8 Osteoporosis World Health Organization criteria for BMD impression classify patients as: Normal (T-score at or above -1.0), Osteopenia (T-score between -1.0 and -2.5), or Osteoporosis (T-score at or below -2.5). 10-year Fracture Risk: FRAX not reported because: Some T-score for Spine Total or Hip Total or Femoral Neck at or below -2.5 Clinical Information Provided by Patient: Has taken Glucocorticoids Has used the following medications: Vitamin D, Calcium, multi Has the following medical conditions: Asthma or Emphysema Patient maximum height was 67 Menopause Age: 50 Drinks caffeinated beverages Onset of menses at age 12 Number of children 2 Impression: The patient has osteoporosis, based on the Left Total Hip T-score. The patient has risk factors, including: history of glucocorticoid therapy. Discussion: INCREASED RISK OF FRACTURE. BONE DENSITY IS UNDESIRABLY LOW AT ONE OR MORE SKELETAL SITES, CONSISTENT WITH POSTMENOPAUSAL OSTEOPOROSIS. This patient's lowest T-score meets the World Health Organization's (WHO) criteria for osteoporosis at one or more sites (T-score -2.5 or below). In untreated patients, the risk of osteoporotic fracture increases approximately two-fold for each 1.0 SD decrease in T-score. Low bone density is not the only risk factor for fracture; also consider factors such as patient's age, frailty or poor health, risk of falling, risk of injury, previous osteoporotic fracture, family history of osteoporosis, cigarette smoking, low body weight, etc. Not everyone with low bone mineral density has osteoporosis; osteomalacia and other metabolic bone disorders should also be considered. Patients who have osteoporosis should be evaluated for specific diseases and conditions (secondary causes) that may cause or contribute to bone loss. The [place] [employer]ocrinologists (AACE) and National Osteoporosis Foundation (NOF) recommend pharmacologic intervention for all postmenopausal women whose T-score is in this range. The patient should follow a healthful lifestyle (good nutrition with adequate calcium and vitamin D, and appropriate weight-bearing exer
--- NOTE | ~2023-03-20 | MM_ITS ---
EXAMINATION: MM screening [facility] BI w chan HISTORY: Screening TECHNIQUE: Craniocaudal and mediolateral oblique 3-D tomosynthesis images were obtained and synthetic 2-D images were generated. CAD analysis was submitted and interpreted. COMPARISON: Comparison to multiple prior studies sequentially, with oldest reviewed study dated 09/09. BREAST PARENCHYMAL COMPOSITION: There are scattered areas of fibroglandular density. FINDINGS: There is no evidence of suspicious mass, calcification, or architectural distortion to sugg est malignancy in either breast. There has been no suspicious interval change. IMPRESSION: 1. No mammographic evidence of malignancy. 2. Recommend routine screening mammography in one year. BI-RADS Category 1: Negative Reviewed, dictated and finalized at location A.
== END 2023-03-20 12:24 | disposition home or self-care (01) ==
LOC: CHSIMG 12:24
PROVIDERS: PCP Family Medicine; Visit Provider Family Medicine
DX: Z12.31 Encounter for screening mammogram for malignant neoplasm of breast (principal); Z78.0 Asymptomatic menopausal state; I73.9 Peripheral vascular disease, unspecified; M85.89 Other specified disorders of bone density and structure, multiple sites; M81.0 Age-related osteoporosis without current pathological fracture
CPT/HCPCS: 77063; 77067; 77080; 93923

== ENCOUNTER 2023-04-26 17:47 | Outpatient (CLI) | payer MEDICARE, SELFPAY ==
--- NOTE | ~2023-04-26 | XR_ITS ---
EXAMINATION: XR chest 2V Exam Date/Time: 04/26/2023 17:56 CDT HISTORY: SOB/HX OF COPD AND CHF Comparison: 10/15/2022. RESULT: Lines, tubes, and devices: None. Lungs and pleura: Severe emphysematous change with architectural distortion and scarring. Chronic pl eural blunting, likely scarring. Cardiomediastinal silhouette: Stable. Dilated central pulmonary arteries as can be seen with pulmona ry arterial hypertension Other: No acute osseous or upper abdominal finding. IMPRESSION: No acute cardiopulmonary process. Severe emphysema. Reviewed, dictated and finalized at location K.
== END 2023-04-26 17:48 | disposition home or self-care (01) ==
LOC: CHSIMG 17:50
PROVIDERS: PCP Family Medicine; Visit Provider Nurse Practitioner Family
DX: R05.9 Cough, unspecified (principal); R06.00 Dyspnea, unspecified; J43.9 Emphysema, unspecified
CPT/HCPCS: 71046

== ENCOUNTER 2023-05-29 14:29 | Observation (INO) | payer MEDICARE, SELFPAY ==
[2023-05-29] VITALS (20 sets, daily range): BP systolic 129–158; BP diastolic 75–90; PULSE 89–136; RESP 14–23; TEMP 36.9–37.1; O2SAT 89–100; BMI 16.8
--- NOTE | ~2023-05-29 | XR_ITS ---
EXAMINATION: XR chest 2V DATE: 05/29/2023 15:00 INDICATION: Shortness of breath. TECHNIQUE: Frontal and lateral views of the chest were obtained. COMPARISON: Chest 2 views 04/26/2023, chest CT 08/23/2021 FINDINGS: There are lucencies in the lungs, consistent with emphysema. There are reticular opacities in the inferior lungs, consistent mild pulmonary edema. No pleural effusion or pneumothorax. The hear t size is normal. The central pulmonary arteries are enlarged, consistent with pulmonary arterial hyp ertension. IMPRESSION: 1. Mild pulmonary edema. 2. Severe emphysema. Reviewed, dictated and finalized at location A. ET OPERATOR
--- NOTE | 2023-05-29 14:31 | ECG_ITS ---
Measurements Intervals [place] Rate: 116 P: 81 AR: 123 QRS: 90 QRSD: 102 T: 268 QT: 267 QTc: 371 Interpretive Statements SINUS TACHYCARDIA POSSIBLE RIGHT ATRIAL ENLARGEMENT LEFT ATRIAL ENLARGEMENT INCOMPLETE RIGHT BUNDLE BRANCH BLOCK DELAYED PRECORDIAL R/S TRANSITION LEFT VENTRICULAR HYPERTROPHY AND ST-T CHANGE ST-T WAVE ABNORMALITY IN INFERIOR LEADS- CONSIDER ISCHEMIA BASELINE ARTIFACT- I, AVR, AVL ABNORMAL ECG COMPARED TO ECG 09/07/2022 09:35:42 ST-T WAVE ABNORMALITY NOW PRESENT Electronically Signed On 05-29-2023 14:43:06 K 9 POLICE OFFICER by Matthew Adame D.O.
[2023-05-29 14:53] LABS: Basophils Percent Auto 0.3 % (0.2-1.2); Eosinophils Absolute Auto 0.1 K/mm3 (0-0.3); Eosinophils Percent Auto 0.6 % (0-4.4); Hematocrit 46.7 % (37.0-47.0); Hemoglobin 13.5 g/dL (12.0-15.0); Immature Granulocyte Percent A 1.3 % (0-0.5); Lymphocytes Absolute Auto 1.28 K/mm3 (0.9-3.2); Mean Corpuscular HGB Conc 28.9 g/dl (32-36); Mean Corpuscular Hemoglobin 30.8 pg (26-34); Mean Corpuscular Volume 106.4 fl (80-100); Mean Platelet Volume 9.4 fl (7.4-10.4); Monocytes Absolute Auto 0.8 K/mm3 (0.1-0.6); Monocytes Percent Auto 10.2 % (2.6-8.5); Neutrophils Absolute Auto 5.7 K/mm3 (1.3-6.7); Neutrophils Percent Auto 71.6 % (45.5-73.1); Platelet Count Result 156 k/mm3 (150-375); Red Blood Count 4.39 M/mm3 (4.2-5.4); Red Cell Distribution Width 13.1 % (11.5-14.5)
[2023-05-29 14:56] LABS: INR 0.9; Prothrombin Time 12.6 Seconds (11.1-14.7)
[2023-05-29 14:58] LABS: Partial Thromboplastin Time 26.1 SECONDS (22.3-36.8)
[2023-05-29 15:01] LABS: Alanine Aminotransferase 48 U/L (6-35); Albumin Level 4.1 g/dL (3.5-5.1); Alkaline Phosphatase 50 U/L (38-126); Aspartate Amino Transferase 44 U/L (14-36); Bilirubin,Total 0.6 mg/dL (0.2-1.3); Blood Urea Nitrogen 29 mg/dL (7-17); Calcium 9.3 mg/dL (8.4-10.2); Carbon Dioxide > 40 mmol/L (22-30); Chloride 89 mmol/L (98-107); Estimated CRCL calculation 49 ml/min; Estimated Glomerular Filt Rate > 60; Glucose 149 mg/dL (65-110); Potassium 4.1 mmol/L (3.4-5.0); Sodium 138 mmol/L (137-145)
[2023-05-29 15:07] LABS: Platelet Estimate Adequate (Adequate)
[2023-05-29 15:08] LABS: Hypochromasia 1+ (NORMAL); Schistocytes None Seen (NORMAL); Stomatocytes 1+ (NORMAL)
[2023-05-29 15:11] LABS: NT Pro B Type Natriuretic Pept 3620 pg/mL (19.9-100); Troponin I < 0.012 ng/mL (0.000-0.034)
[2023-05-29 18:07] LABS: Alveolar/Arterial O2 Gradient 73.3 mmHg; Base Excess ABG 10.9 mEq/l (+/-2.0); Carboxyhemoglobin 1.3 % THb (0-2.0); Fractional Inspired Oxygen 32 %; HCO3 ABG 39.1 mEq/l (22.0-26.0); Methemoglobin ABG 0.3 %THb (0-1.5); Oxygen Content ABG 18.1 %vol (16.0-22.0); Oxygen Saturation ABG 94.1 % (95.0-100.0); Oxyhemoglobin 92.9 % THb (90.0-100.0); PO2 ABG 74.4 mmHg (80.0-100.0); PO2 FiO2 Ratio Arterial Blood 2.33 %; Reduced Hemoglobin 5.5 %THb (0-5.0); Total Hemoglobin 13.8 g/dL (12.0-18.0); pH ABG 7.372 (7.350-7.450)
[2023-05-29 18:09] LABS: Device NASAL CANNULA; PCO2 ABG 68.8 mmHg (35.0-45.0); Site Drawn RIGHT BRACHIAL
--- NOTE | 2023-05-29 19:28 | ED.SOB ---
HPI - SOB/Dyspnea General Chief Complaint: Shortness of Breath/Dyspnea <VIVIAN Ca Last Filed: 05/30/23 00:45> Stated Complaint: SOB, swollen legs <VIVIAN Ca Last Filed: 05/30/23 00:45> Time Seen by Provider: 05/29/23 17:49 <VIVIAN Ca Last Filed: 05/30/23 00:45> Source: patient and old records reviewed <VIVIAN Ca Last Filed: 05/30/23 00:45> Mode of arrival: ambulatory <VIVIAN Ca Last Filed: 05/30/23 00:45> Limitations: no limitations <VIVIAN Ca Last Filed: 05/30/23 00:45> History of Present Illness HPI Narrative: Patient is a 72 y/o female, with PMH of CHF/COPD, pulmonary hypertension, chronic hypoxic resp failure on 3L NC chronically, who presents to the ED with c/o SOB and BLE swelling. Patient reports having increased swelling in her lower extremities intermittently over the last 3 weeks. States swelling has increased up to her thighs at times. Patient stopped taking her Metoprolol and roflumilast to try to help with the swelling. She does take Lasix 20 mg daily. She has felt increasingly short of breath with exertion. She typically increases her oxygen to 5 L with exertion, but states her oxygen saturations have still been dropping into the 70s with exertion. She reports intermittent chest pain, typically resolves on its own. Denies recent cough, cold symptoms, fevers. <VIVIAN Ca Last Filed: 05/30/23 00:45> Related Data Home Medications: Home Medications Medication Instructions Recorded Confirmed furosemide 20 mg tablet 20 mg PO DAILY edema 01/23/23 05/29/23 sildenafil (pulm.hypertension) 20 20 mg PO TID 01/23/23 05/29/23 mg tablet Adults Multivitamin 1 tab-cap PO DAILY 03/02/23 05/29/23 Calcium 600 + D(3) 2 cap PO DAILY 03/02/23 05/29/23 Ginkoba 1 cap PO DAILY 03/02/23 05/29/23 Green Tea 1 cap PO DAILY 03/02/23 05/29/23 bee pollen See Rx Instructions .Route .COMPLEX 03/02/23 05/29/23 coQ10 (ubiquinol) 100 mg capsule 100 mg PO DAILY 03/02/23 05/29/23 dextromethorphan-guaifenesin ER 60 1 tablet PO HS 03/02/23 05/29/23 mg-1,200 mg tab,extend release,12hr (Mucinex DM) echinacea 1 cap PO DAILY 03/02/23 05/29/23 ferrous sulfate 324 mg (65 mg 324 mg PO DAILY 03/02/23 05/29/23 iron) tablet,delayed release garlic 1 tablet PO DAILY 03/02/23 05/29/23 ginseng 1 cap PO DAILY 03/02/23 05/29/23 lutein 1 cap PO DAILY 03/02/23 05/29/23 potassium 99 mg tablet 99 mg PO DAILY 03/02/23 05/29/23 turmeric 1 cap PO DAILY 03/02/23 05/29/23 albuterol sulfate 90 mcg/actuation 2 puff inhalation Q4-6H PRN 05/29/23 05/29/23 aerosol inhaler Shortness Of Breath metoprolol tartrate 25 mg tablet 12.5 mg PO DAILY 05/29/23 05/29/23 <Shanna Pearson PA-C - Last Filed: 05/30/23 00:45> Allergies/Adverse Reactions: Allergies Allergy/AdvReac Type Severity Reaction Status Date / Time latex Allergy Severe BURNING Verified 04/14/23 15:00 SENSATION lisinopril Allergy Severe Difficulty Verified 04/14/23 15:00 Breathing cefdinir Allergy Intermediate facial Verified 04/14/23 15:00 swelling Sulfa (Sulfonamide Allergy Unknown unknown Verified 04/14/23 15:00 Antibiotics) spironolactone AdvReac Severe SOB Verified 04/14/23 15:00 amoxicillin [From Augmentin] AdvReac Mild Diarrhea Verified 04/14/23 15:00 clavulanic acid AdvReac Mild Diarrhea Verified 04/14/23 15:00 [From Augmentin] levofloxacin [From Levaquin] AdvReac facial Verified 04/14/23 15:00 swelling <Shanna Pearson PA-C - Last Filed: 05/30/23 00:45> Review of Systems Review of Systems: CONSTITUTIONAL: Denies fever, chills, or sweats. ENT: Denies rhinorrhea, congestion, sore throat. CARDIOVASCULAR: See HPI. RESPIRATORY: See HPI GASTROINTESTINAL: Denies abdominal pain, nausea, vomiting. MUSCULOSKELETAL: Denies back pain, joint pain, or myalgia. NEUROLOGIC: Denies
[2023-05-29] MEDS: FUROSEMIDE INJ 40 MG/4 ML VIAL IV PUSH (19:33)
[2023-05-29 21:31] LABS: Influenza A QL RT-PCR Negative (Negative); Influenza B QL RT-PCR Negative (Negative); RSV RNA, RT-PCR Negative (Negative); SARS-CoV-2 RNA PCR Negative (Negative)
--- NOTE | 2023-05-29 21:45 | ADMGEN ---
This patient, Saima Bryant, was admitted to Medical Room 241-01. Patient/family oriented to hospital policies and general routines including ID bracelet, bed and alarms, visiting hours, pain management, procedures, bathroom and other care routines, personal items, smoking policy, room service/diet, and visiting hours. Information on how to activate the Rapid Response Team has been discussed. Patient/Family are encouraged to report perceived risks to care and to ask questions if they do not understand what they are told or what they should do.
[2023-05-30] VITALS (13 sets, daily range): BP systolic 113–127; BP diastolic 60–82; PULSE 76–120; RESP 17–19; TEMP 36.5–36.7; O2SAT 94–100
--- NOTE | 2023-05-30 01:42 | PM.IMHP ---
H&P: HPI History of Present Illness Date/Time: 05/30/23 01:42 Chief Complaint: Bilateral leg swelling, shortness breath Narrative: 72-year-old medical history of severe pulmonary hypertension, right-sided heart failure, COPD, chronic hypoxic hypercapnic respiratory failure on chronic home O2 who presented to the ER with increased shortness of breath and bilateral lower extremity swelling for a couple weeks. The patient stop taking her roflumilst on 05/23 per quality control clerk. She decided herself that she would stop taking her metoprolol on herself without direction from a physician. She is usually on 3 L cannula at home with rest and 5 L with activity. She reports that usually when she is up in if she is more active than usual her oxygen saturations will drop into the 80s. But over the last couple of weeks her pulse ox is been dropping down into the 70s. She has had significant and increase in swelling over the last 3 weeks despite taking her Lasix. She rib quit taking her metoprolol a week or more ago. Since she quit taking her metoprolol her shortness of breath has gotten worse and she has been feeling her heart race constantly. But she felt that the metoprolol was likely causing her swelling because she read the drug information that came from the pharmacy that stated that he cause swelling and could cause shortness of breath. Nursing staff was caring for the patient is evening new patient from other facilities and stated that this behavior was not unusual for the patient. She is not having any fevers or chills. She denies any significant cough. She reports that her swelling has improved significantly overnight. She reports that she does not use salt on her food and does not used a lot of prepackaged meals. Review of Systems Review of Systems: 12 systems were reviewed with pertinent positives and negatives per HPI. Except as documented in the HPI, all other systems were reviewed and are negative. [facility] Past Medical History Medical History Age-related osteoporosis without current pathological fracture Changing nevus (~04/2019) Chronic obstructive pulmonary disease, unspecified (~2000) Chronic respiratory failure Cor pulmonale Ganglion cyst of finger of right hand (~01/2019) History of colon polyps History of poliomyelitis without residual effect (~1950) Right-sided congestive heart failure Most recent echocardiogram August 2022: The hyperdynamic left ventricle EF of greater than 70, grade 1 diastolic dysfunction E/E 12 is mildly elevated, right ventricular systolic function mildly reduced with abnormal TAPSE, moderate pulmonary hypertension noted echo with RVSP of 58 (improved from prior echo 2020 with RVSP of 111), the patient had prior right heart catheterization demonstrating severe pulmonary hypertension in 2020, dilated inferior VA cava with greater per than 50% collapse with inspiration consistent with elevated right heart pressures Severe pulmonary hypertension RVSP of 111 on echocardiogram July 2020, dilated inferior vena cava with greater than 50% collapse with inspiration consistent was significant elevated right atrial pressures measuring 15 mmHg Surgical History Surgical History (Updated 05/30/23 @ 01:51 by Gisella Pepper DO) H/O dilation and curettage History of bilateral cataract extraction 2019 History of left oophorectomy (~05/06/86) History of right heart catheterization Hx of tonsillectomy (~1955) Family History Family History Sibling Hypertension Parkinsons disease Alcoholism Diabetes mellitus Mother Cerebrovascular accident Parkinsons disease Grandparent Heart disease Cerebrovascular accident Father COPD (chronic obstructive pulmonary disease) Social History Social History Social History: The patient lives wit
[2023-05-30 06:00] LABS: Hematocrit 45.2 % (37.0-47.0); Hemoglobin 13.5 g/dL (12.0-15.0); Mean Corpuscular HGB Conc 29.9 g/dl (32-36); Mean Corpuscular Hemoglobin 31.6 pg (26-34); Mean Corpuscular Volume 105.9 fl (80-100); Mean Platelet Volume 9.3 fl (7.4-10.4); Platelet Count Result 131 k/mm3 (150-375); Red Blood Count 4.27 M/mm3 (4.2-5.4); Red Cell Distribution Width 13.2 % (11.5-14.5); White Blood Count 7.3 K/mm3 (4.5-10.0)
[2023-05-30 06:34] LABS: Alanine Aminotransferase 43 U/L (6-35); Albumin Level 3.8 g/dL (3.5-5.1); Alkaline Phosphatase 56 U/L (38-126); Aspartate Amino Transferase 42 U/L (14-36); Bilirubin,Total 0.5 mg/dL (0.2-1.3); Blood Urea Nitrogen 25 mg/dL (7-17); Calcium 9.1 mg/dL (8.4-10.2); Carbon Dioxide > 40 mmol/L (22-30); Chloride 91 mmol/L (98-107); Estimated CRCL calculation 43 ml/min; Estimated Glomerular Filt Rate > 60; Glucose 114 mg/dL (65-110); Potassium 4.1 mmol/L (3.4-5.0); Sodium 140 mmol/L (137-145)
[2023-05-30] MEDS: METOPROLOL TARTRATE 12.5 MG TABLET PO ×2 (06:52→20:42)
[2023-05-30] MEDS: SILDENAFIL CITRATE 20 MG TABLET PO ×3 (06:52→16:47)
[2023-05-30] MEDS: MULTIVITAMINS THERAPEUTIC TAB (*BKC) 1 TABLET PO (09:41)
[2023-05-30] MEDS: FERROUS SULFATE 325 MG TABLET DR BY MOUTH (09:41)
[2023-05-30] MEDS: ENOXAPARIN 40 MG/0.4 ML SYRINGE SUB-Q (09:41)
[2023-05-30] MEDS: POTASSIUM CHLORIDE 10 MEQ ER TABLET PO (09:41)
[2023-05-30] MEDS: FUROSEMIDE INJ 40 MG/4 ML VIAL IV PUSH ×2 (09:42→20:42)
--- NOTE | 2023-05-30 14:02 | PM.IMPN ---
Progress Note: A&P Assessment and Plan (1) Acute exacerbation of CHF (congestive heart failure): Qualifiers: Heart failure type: unspecified Qualified Code(s): I50.9 - Heart failure, unspecified Code(s): I50.9 - Heart failure, unspecified Status: Chronic Assessment and Plan: likely exacerbated by her cessation of metoprolol without advice from provider resume metoprolol BID IV Lasix 40 mg b.i.d, home Lasix dose may need adjusted fluid restricted diet, monitor strict I&O's and daily weights (2) Acute on chronic hypoxic respiratory failure: Code(s): J96.21 - Acute and chronic respiratory failure with hypoxia Status: Acute Assessment and Plan: currently on home oxygenation needs - 3L O2 continue home albuterol (3) Severe pulmonary hypertension: Code(s): I27.20 - Pulmonary hypertension, unspecified Status: Acute Assessment and Plan: IV Lasix 40 bid monitor mild transaminitis Subjective Date/time seen: 05/30/23 14:02 Interval history: Patient is a 72 YO female with PMH of severe pulmonary hypertension, right-sided heart failure, COPD, chronic hypoxic hypercapnic respiratory failure on chronic home O2 admitted from the ER with increased shortness of breath and bilateral lower extremity swelling for a couple weeks. The patient stop taking her roflumilst on 05/23 per cigarette maker. She decided herself that she would stop taking her metoprolol on herself without direction from a physician. She is usually on 3 L cannula at home with rest and 5 L with activity. She reports that usually when she is up in if she is more active than usual her oxygen saturations will drop into the 80s. But over the last couple of weeks her pulse ox is been dropping down into the 70s. She has had significant and increase in swelling over the last 3 weeks even while taking her Lasix. She is not having any fevers or chills. She denies any significant cough. Upon examination this morning, her swelling has resolved s/p IV lasix. She is currently on 3L of O2 which is her baseline at rest. She denies SOB, chest pain this morning, but continues to feel weak and more lethargic. We will restart her metoprolol today and encouraged her to follow up with her child care nurse as scheduled. She will likely be stable for d/c tomorrow. Review of Systems Review of Systems: 12 systems were reviewed with pertinent positives and negatives per HPI. Except as documented in the HPI, all other systems were reviewed and are negative. Exam Const: General: comfortable and no acute distress HENMT: Ears: TM's normal bilaterally Mouth: Yes moist mucous membranes Eyes: Pupils: Equal, round and reactive pupils present EOM: EOMs intact bilaterally Neck: Neck: supple and no JVD Thyroid: thyroid normal Resp: Effort & Inspection: normal respiratory effort Auscultation: clear to auscultation bilaterally and diminished lung sounds Cardio: Rate: regular rate Rhythm: regular rhythm GI: GI Palp: Yes Soft to palpation Auscultation: normal bowel sounds Skin: General skin exam: normal color and no rashes or lesions noted Neuro: Speech: normal speech Sensory Exam: normal sensation Extrem: General: normal to inspection Psych: Affect: normal affect Objective Data Vital Signs Vital Signs: Vital Signs - 24 hr 05/29/23 14:31 05/29/23 17:47 05/29/23 17:48 Temperature 98.5 F Pulse Rate 120 H 104 H Respiratory Rate 22 H Blood Pressure 158/90 H Pulse Oximetry 95 97 Oxygen Delivery Nasal Cannula Nasal Cannula Oxygen Flow Rate 3 3 05/29/23 18:02 05/29/23 18:15 05/29/23 19:33 Temperature Pulse Rate 93 96 93 Respiratory Rate 18 18 14 Blood Pressure 145/82 H Pulse Oximetry 100 97 97 Oxygen Delivery Oxygen Flow Rate 05/29/23 19:41 05/29/23 18:30 05/29/23 18:45 Temperature Pulse Rate 102 H 100 Respiratory Rate 16 22 H Blood Pressure Pulse Oximetry
[2023-05-30] MEDS: guaiFENesin 600 MG/DEXTROMETHORPHAN 30 MG SR TAB 12 HR 2 TAB PO (20:45)
[2023-05-31] VITALS: PULSE 78
[2023-05-31 04:00] VITALS: PULSE 90
[2023-05-31 05:22] LABS: Hematocrit 45.2 % (37.0-47.0); Hemoglobin 13.4 g/dL (12.0-15.0); Immature Platelet Fraction Pct 3.2 % (0.9-11.2); Mean Corpuscular HGB Conc 29.6 g/dl (32-36); Mean Corpuscular Hemoglobin 31.4 pg (26-34); Mean Corpuscular Volume 105.9 fl (80-100); Mean Platelet Volume 9.5 fl (7.4-10.4); Platelet Count Result 151 k/mm3 (150-375); Red Blood Count 4.27 M/mm3 (4.2-5.4); White Blood Count 7.2 K/mm3 (4.5-10.0)
[2023-05-31 05:24] VITALS: BP 114/68; PULSE 89; RESP 19; TEMP 36.8; O2SAT 100
[2023-05-31 05:43] LABS: Alanine Aminotransferase 44 U/L (6-35); Albumin Level 3.8 g/dL (3.5-5.1); Alkaline Phosphatase 55 U/L (38-126); Aspartate Amino Transferase 40 U/L (14-36); Bilirubin,Total 0.5 mg/dL (0.2-1.3); Blood Urea Nitrogen 33 mg/dL (7-17); Calcium 9.2 mg/dL (8.4-10.2); Carbon Dioxide > 40 mmol/L (22-30); Chloride 89 mmol/L (98-107); Estimated CRCL calculation 42 ml/min; Estimated Glomerular Filt Rate > 60; Glucose 121 mg/dL (65-110); Potassium 4.1 mmol/L (3.4-5.0); Sodium 139 mmol/L (137-145)
[2023-05-31 08:00] VITALS: O2SAT 91; O2SAT 92
[2023-05-31] MEDS: FUROSEMIDE INJ 40 MG/4 ML VIAL IV PUSH (08:34)
[2023-05-31] MEDS: ENOXAPARIN 40 MG/0.4 ML SYRINGE SUB-Q (08:34)
[2023-05-31 08:35] VITALS: PULSE 90
[2023-05-31] MEDS: METOPROLOL TARTRATE 12.5 MG TABLET PO (08:35)
[2023-05-31] MEDS: MULTIVITAMINS THERAPEUTIC TAB (*BKC) 1 TABLET PO (08:36)
[2023-05-31] MEDS: SILDENAFIL CITRATE 20 MG TABLET PO ×2 (08:36→14:07)
[2023-05-31] MEDS: POTASSIUM CHLORIDE 10 MEQ ER TABLET PO (08:36)
[2023-05-31] MEDS: FERROUS SULFATE 325 MG TABLET DR BY MOUTH (08:36)
[2023-05-31 14:18] VITALS: BP 130/68; PULSE 92; RESP 18; TEMP 36.9; O2SAT 94
--- NOTE | 2023-05-31 14:40 | PM.DS ---
DS: Admitting Diagnosis Discharge Date 05/31 Admitting Diagnosis BLE swelling DS: Discharge Diagnosis Discharge Diagnosis (1) Acute exacerbation of CHF (congestive heart failure): Qualifiers: Heart failure type: unspecified Qualified Code(s): I50.9 - Heart failure, unspecified Code(s): I50.9 - Heart failure, unspecified Status: Chronic Assessment and Plan: likely exacerbated by her cessation of metoprolol without advice from provider resume metoprolol BID IV Lasix 40 mg b.i.d, home Lasix dose may need adjusted fluid restricted diet, monitor strict I&O's and daily weights (2) Acute on chronic hypoxic respiratory failure: Code(s): J96.21 - Acute and chronic respiratory failure with hypoxia Status: Acute Assessment and Plan: currently on home oxygenation needs - 3L O2 continue home albuterol (3) Cor pulmonale: Code(s): I27.81 - Cor pulmonale (chronic) Status: Acute (4) Severe pulmonary hypertension: Code(s): I27.20 - Pulmonary hypertension, unspecified Status: Acute Assessment and Plan: IV Lasix 40 bid monitor mild transaminitis DS: Summary Hospital Course Hospital Course: Patient is a 72 YO female with PMH of severe pulmonary hypertension, right-sided heart failure, COPD, chronic hypoxic hypercapnic respiratory failure on chronic home O2 admitted from the ER with increased shortness of breath and bilateral lower extremity swelling for a couple weeks. The patient stop taking her roflumilst on 05/23 per camp nurse.? She decided herself that she would stop taking her metoprolol on herself without direction from a physician.? She is usually on 3 L cannula at home with rest and 5 L with activity.? She reports that usually when she is up in if she is more active than usual her oxygen saturations will drop into the 80s.? But over the last couple of weeks her pulse ox is been dropping down into the 70s.? She has had significant and increase in swelling over the last 3 weeks even while taking her Lasix.? She is not having any fevers or chills.? She denies any significant cough.? Upon examination this morning, her swelling has resolved s/p IV lasix. She is currently on 3L of O2 which is her baseline at rest. She denies SOB, chest pain this morning, but continues to feel weak and more lethargic. We will restart her metoprolol today and encouraged her to follow up with her intelligence manager as scheduled. She will likely be stable for d/c tomorrow. ? Status at Discharge Cognitive/behavioral status at discharge: A&Ox4 Time Spent with Patient Time attestation: Total time spent providing and/or coordinating discharge services: 35 Exam Narrative: General: well appearing, well developed, thin, appears stated age. HEENT: normocephalic, atraumatic. Mucous membranes moist. EOMI, PERRLA, bilateral sclera anicteric, no conjunctival injection. Neck supple without JVD, lymphadenopathy, or bruit. Respiratory: clear to auscultation bilaterally. No rales/rhonic/wheezes. Cardiovascular: Regular rate and rhythm, normal S1-S2 upon auscultation. No murmurs, rubs, or clicks. PMI is nondisplaced, capillary re-fill less than 3 second. Abdomen: Soft, flat, no pulsatile masses, non-distended and non-tender. No rebound, no guarding. No CVA tenderness, no hepatosplenomegaly. Bowel sounds present to all four quadrants. No high pitch or tinkling sounds, resonant to percussion. Extremities: No cyanosis, clubbing, or edema present. Pulses are palpable 2/2. Active ROM to all four extremities. Neuro: Alert and orientated x 4. PERRLA. Cranial nerves 2-12 intact without focal deficit. Skin: Warm, dry, and intact, without rash, erythema, or lesion. Lines: Incisions: Psych: pleasant, cooperative, normal speech, normal affect, no hallucinations, no dysarthia DS: Data Data Completed and Pending Labs on day of discharge: Labs from last 24 hours 05/31/23 04:46 WBC 7.2 R
== END 2023-05-31 15:15 | disposition home or self-care (01) ==
LOC: ANHED 19:38 → ANH2MED 22:07
PROVIDERS: Emergency Medicine; Nurse Practitioner; Admitting Provider Internal Medicine; Emergency Provider Physician Assistant; PCP Family Medicine; Visit Provider Family Medicine
DX: I50.9 Heart failure, unspecified (principal); J96.21 Acute and chronic respiratory failure with hypoxia; Z99.81 Dependence on supplemental oxygen; I27.81 Cor pulmonale (chronic); I27.20 Pulmonary hypertension, unspecified; J44.9 Chronic obstructive pulmonary disease, unspecified; J43.9 Emphysema, unspecified; R94.31 Abnormal electrocardiogram [ECG] [EKG]; M81.0 Age-related osteoporosis without current pathological fracture; R79.89 Other specified abnormal findings of blood chemistry; Z20.822 Contact with and (suspected) exposure to COVID-19; Z87.891 Personal history of nicotine dependence; Z79.51 Long term (current) use of inhaled steroids; Z79.899 Other long term (current) drug therapy
CPT/HCPCS: 36415; 36600; 71046; 80048; 80053; 80076; 82375; 82805; 83050; 83880; 84484; 85025; 85027; 85055; 85610; 85730; 87637; 93005; 96372; 96374; 96376; 99285; A9270; G0378; J1650; J1940

== ENCOUNTER 2023-06-16 16:29 | Inpatient (IN) | payer MEDICARE, SELFPAY ==
[2023-06-16] VITALS (22 sets, daily range): BP systolic 119–142; BP diastolic 64–96; PULSE 99–117; RESP 18–31; TEMP 36.3–36.6; O2SAT 94–100; BMI 16.9
--- NOTE | ~2023-06-16 | XR_ITS ---
XR chest 1V portable 06/18/2023 10:34 Indication: Shortness of breath Procedure: AP portable chest Comparison: Comparison to multiple prior studies sequentially, with oldest reviewed study dated 10/15. Findings: Borderline heart size. Bibasilar infiltrates with interlobular septal thickening, likely mi ld edema superimposed on emphysema. No pneumothorax. No acute osseous abnormality. Impression: 1: Bibasilar interstitial infiltrates with septal thickening, suspicious for interstitial edema super imposed on emphysema. Reviewed, dictated and finalized at location A. RDS ANALYST Impression: 1: Bibasilar interstitial infiltrates with septal thickening, suspicious for in terstitial edema superimposed on emphysema.
--- NOTE | ~2023-06-16 | XR_ITS ---
EXAMINATION: XR chest 2V DATE: 06/16/2023 17:14 INDICATION: Shortness of breath and lower limb swelling TECHNIQUE: frontal and lateral views of the chest were obtained. COMPARISON: Chest radiograph dated 05/29/2023 FINDINGS: Again seen is severe upper lung predominant emphysema were there is prominent increased lucency and a rchitectural distortion. Unchanged linear bands of discoid atelectasis/scarring in the bilateral uppe r lobes extending along the major fissures. Similar pattern of reticular opacities in the dependent l ower lungs consistent with mild pulmonary edema. No pleural effusion or pneumothorax. Heart size is n ormal. Enlargement of the central pulmonary arteries consistent with pulmonary arterial hypertension. Mild lower lumbar levocurvature with moderate to severe spondylosis. IMPRESSION: 1. Mild pulmonary edema in the lower lungs. 2. Severe emphysema with chronic discoid atelectasis/scarring in the bilateral upper lobes. Reviewed, dictated and finalized at location A. OVEN MASON
--- NOTE | 2023-06-16 16:35 | ECG_ITS ---
Measurements Intervals [place] Rate: 106 P: 87 [place]: 121 QRS: 89 QRSD: 106 T: -82 QT: 323 QTc: 430 Interpretive Statements SINUS TACHYCARDIA RIGHT ATRIAL ENLARGEMENT [0.3mV P WAVE] LEFT ATRIAL ENLARGEMENT [-0.15mV P WAVE IN V1/V2] INCOMPLETE RIGHT BUNDLE BRANCH BLOCK [90+ ms QRS DURATION, TERMINAL R IN V1/V2, 40+ ms S IN I/aVL/V4/V5/V6] ST DEVIATION AND MODERATE T-WAVE ABNORMALITY, CONSIDER INFERIOR ISCHEMIA [-0.1+ mV T WAVE IN II/aVF] ABNORMAL ECG COMPARED TO ECG 05/29/2023 14:41:49 NO SIGNIFICANT CHANGES Electronically Signed On 06-17-2023 7:33:56 WASH OPERATOR by Chas Veliz M.D.
[2023-06-16 17:12] LABS: Basophils Percent Auto 0.3 % (0.2-1.2); Eosinophils Percent Auto 0.3 % (0-4.4); Hemoglobin 13.9 g/dL (12.0-15.0); Immature Granulocyte Absolute 0.01 K/mm3 (0.00-0.031); Immature Granulocyte Percent A 0.1 % (0-0.5); Immature Platelet Fraction Pct 5.3 % (0.9-11.2); Lymphocytes Absolute Auto 0.96 K/mm3 (0.9-3.2); Lymphocytes Percent Auto 13.3 % (18.3-44.2); Mean Corpuscular HGB Conc 29.6 g/dl (32-36); Mean Corpuscular Hemoglobin 31.1 pg (26-34); Mean Corpuscular Volume 105.1 fl (80-100); Mean Platelet Volume 10.2 fl (7.4-10.4); Monocytes Absolute Auto 0.7 K/mm3 (0.1-0.6); Neutrophils Absolute Auto 5.5 K/mm3 (1.3-6.7); Platelet Count Result 140 k/mm3 (150-375); Red Blood Count 4.47 M/mm3 (4.2-5.4); Red Cell Distribution Width 13.6 % (11.5-14.5); White Blood Count 7.2 K/mm3 (4.5-10.0)
[2023-06-16 17:21] LABS: Partial Thromboplastin Time 27.4 SECONDS (22.3-36.8); Prothrombin Time 13.2 Seconds (11.1-14.7)
[2023-06-16 17:24] LABS: Alanine Aminotransferase 48 U/L (6-35); Albumin Level 4.1 g/dL (3.5-5.1); Alkaline Phosphatase 60 U/L (38-126); Aspartate Amino Transferase 56 U/L (14-36); Bilirubin,Total 0.7 mg/dL (0.2-1.3); Blood Urea Nitrogen 47 mg/dL (7-17); Calcium 9.2 mg/dL (8.4-10.2); Carbon Dioxide > 40 mmol/L (22-30); Chloride 87 mmol/L (98-107); Estimated CRCL calculation 43 ml/min; Estimated Glomerular Filt Rate > 60; Glucose 129 mg/dL (65-110); Potassium 4.5 mmol/L (3.4-5.0); Sodium 136 mmol/L (137-145)
[2023-06-16 17:31] LABS: NT Pro B Type Natriuretic Pept 13700 pg/mL (19.9-100); Troponin I 0.014 ng/mL (0.000-0.034)
--- NOTE | 2023-06-16 17:35 | ED.SOB ---
HPI - SOB/Dyspnea General Chief Complaint: Shortness of Breath/Dyspnea Stated Complaint: shortness of breath Time Seen by Provider: 06/16/23 16:44 Source: patient, RN notes reviewed and old records reviewed Mode of arrival: ambulatory Limitations: no limitations History of Present Illness HPI Narrative: This is a 72 year old female with history of end stage emphysema, CHF , pulmonary hypertension who presents for evaluation of shortness of breath. PAtient states she has been short of breath for 1 month. She thinks it started when she was placed on metoprolol. She reports she has been told that she needs to be on this medication but she thinks it is causing her to have shortness of breath. She is not taking this medication as prescribed. Her shortness of breath has worsened recently. She reports coughing with intermittent phlegm and intermittent chest pain. She also reports leg swelling. She takes furosemide 20 mg. She uses ProAir multiple times a day without relief. She reports she uses her Trelegy frequently. She was evaluated by her counselor supervisor today and it was recommended that she come to ER for admission. Related Data Home Medications Medication Instructions Recorded Confirmed sildenafil (pulm.hypertension) 20 20 mg PO TID 01/23/23 06/16/23 mg tablet Adults Multivitamin 1 tab-cap PO DAILY 03/02/23 06/16/23 Calcium 600 + D(3) 2 cap PO DAILY 03/02/23 06/16/23 Ginkoba 1 cap PO DAILY 03/02/23 06/16/23 Green Tea 1 cap PO DAILY 03/02/23 06/16/23 bee pollen See Rx Instructions .Route .COMPLEX 03/02/23 06/16/23 coQ10 (ubiquinol) 100 mg capsule 100 mg PO DAILY 03/02/23 06/16/23 dextromethorphan-guaifenesin ER 60 1 tablet PO HS 03/02/23 06/16/23 mg-1,200 mg tab,extend release,12hr (Mucinex DM) echinacea 1 cap PO DAILY 03/02/23 06/16/23 ferrous sulfate 324 mg (65 mg 324 mg PO DAILY 03/02/23 06/16/23 iron) tablet,delayed release garlic 1 tablet PO DAILY 03/02/23 06/16/23 ginseng 1 cap PO DAILY 03/02/23 06/16/23 lutein 1 cap PO DAILY 03/02/23 06/16/23 potassium 99 mg tablet 99 mg PO DAILY 03/02/23 06/16/23 turmeric 1 cap PO DAILY 03/02/23 06/16/23 albuterol sulfate 90 mcg/actuation 2 puff inhalation Q4-6H PRN 05/29/23 06/16/23 aerosol inhaler Shortness Of Breath metoprolol tartrate 25 mg tablet 12.5 mg PO DAILY 05/29/23 06/16/23 Allergies Allergy/AdvReac Type Severity Reaction Status Date / Time latex Allergy Severe BURNING Verified 06/16/23 16:46 SENSATION lisinopril Allergy Severe Difficulty Verified 06/16/23 16:46 Breathing cefdinir Allergy Intermediate facial Verified 06/16/23 16:46 swelling Sulfa (Sulfonamide Allergy Unknown unknown Verified 06/16/23 16:46 Antibiotics) spironolactone AdvReac Severe SOB Verified 06/16/23 16:46 amoxicillin [From Augmentin] AdvReac Mild Diarrhea Verified 06/16/23 16:46 clavulanic acid AdvReac Mild Diarrhea Verified 06/16/23 16:46 [From Augmentin] levofloxacin [From Levaquin] AdvReac facial Verified 06/16/23 16:46 swelling Review of Systems Constitutional: Constitutional: Reports weakness Cardiovascular: Cardiovascular: Reports chest pain, Denies syncope, Denies rapid heart rate, Denies irregular heart rhythm, Reports leg edema and Reports dyspnea Respiratory: Respiratory: Reports chest congestion, Denies hemoptysis, Denies excessive phlegm production and Denies dyspnea Gastrointestinal: Gastrointestinal: Denies abdominal pain, Denies hematochezia, Denies diarrhea and Denies vomiting Genitourinary: Genitourinary: Denies hematuria and Denies dysuria Musculoskeletal: Musculoskeletal: Denies joint swelling, Denies loss of height and Denies muscle weakness Neurologic: Denies syncope, Denies focal weakness and Denies weakness PMFSH Past Medical History Medical History Age-related osteoporosis without current pathological fracture Changing nevus (~04/2019) Chronic obstructive pulmonary disease, uns
[2023-06-16] MEDS: FUROSEMIDE INJ 40 MG/4 ML VIAL IV PUSH ×2 (17:42→21:11)
[2023-06-16 17:43] LABS: Hypochromasia 1+ (NORMAL); Schistocytes None Seen (NORMAL)
--- NOTE | 2023-06-16 18:09 | PCRTNOTE ---
Pt refused respiratory treatment at this time.
[2023-06-16 18:14] LABS: Alveolar/Arterial O2 Gradient 60.1 mmHg; Base Excess ABG 13.4 mEq/l (+/-2.0); Carboxyhemoglobin 0.5 % THb (0-2.0); Fractional Inspired Oxygen 32 %; HCO3 ABG 43.6 mEq/l (22.0-26.0); Methemoglobin ABG 0.1 %THb (0-1.5); Oxygen Content ABG 18.1 %vol (16.0-22.0); Oxygen Saturation ABG 91.1 % (95.0-100.0); Oxyhemoglobin 91.5 % THb (90.0-100.0); PO2 FiO2 Ratio Arterial Blood 2.13 %; Reduced Hemoglobin 7.9 %THb (0-5.0); Total Hemoglobin 14.1 g/dL (12.0-18.0); pH ABG 7.325 (7.350-7.450)
[2023-06-16 18:15] LABS: Device NASAL CANNULA; PCO2 ABG 85.5 mmHg (35.0-45.0); Site Drawn RIGHT BRACHIAL
--- NOTE | 2023-06-16 19:22 | PC.NURSE ---
This RN assumed care of patient. This RN took patient report from MARCO ANTONIO Spivey.
[2023-06-16] MEDS: methylPREDNISolone SOD SUCC 125 MG VIAL IV PUSH (19:56)
[2023-06-16 20:47] LABS: Influenza A QL RT-PCR Negative (Negative); Influenza B QL RT-PCR Negative (Negative); RSV RNA, RT-PCR Negative (Negative); SARS-CoV-2 RNA PCR Negative (Negative)
--- NOTE | 2023-06-16 21:57 | ADMGEN ---
This patient, Saima Bryant, was admitted to IMU Room Patient/family oriented to hospital policies and general routines including ID bracelet, bed and alarms, visiting hours, pain management, procedures, bathroom and other care routines, personal items, smoking policy, room service/diet, and visiting hours. Information on how to activate the Rapid Response Team has been discussed. Patient/Family are encouraged to report perceived risks to care and to ask questions if they do not understand what they are told or what they should do.
--- NOTE | 2023-06-16 22:01 | PM.IMHP ---
H&P: HPI History of Present Illness Date/Time: 06/16/23 20:00 Chief Complaint: ?fluid on my lungs? Narrative: 72-year-old female with past medical history of cor pulmonale, severe pulmonary hypertension, chronic hypoxic hypercapnic respiratory failure and noncompliance with medication therapy who presented to the ER with increasing shortness of breath and leg swelling. The patient had went to see her organ tuner at the end of on May and was started on metoprolol due to fact the patient had already been having swelling and shortness of breath. She was started on metoprolol at that time to help with her cardiac symptoms related to her end-stage lung disease and pulmonary hypertension and the patient had been noncompliant with the metoprolol. She came back to the hospital on 05/29/2023 for increasing shortness of breath and lower extremity swelling. She was diuresed and had improvement in her symptoms but when she returned home her swelling recurred. She states she does not eat any food with salt. She has been having significant orthopnea and sits almost completely upright in her bed. This is her baseline but may have been feeling worse recently. She always uses 3 L of oxygen at rest and 5 L with exertion. Despite taking her Lasix she has continued to swell. She states that she has been taking on metoprolol since her last hospitalization but had told the ER provider that she was not taking the metoprolol. She states she does not like the metoprolol because she read the brochure that told her that could cause more shortness of breath. She reports chest tightness due to shortness of breath. She denies any chest pain. She has had intermittent production of phlegm which is not unusual for her. She has been using her ProAir inhaler without any relief in symptoms. She uses trilogy frequently for short period time. She reports that she has been taking some of her medications some of the time. She saw all the nurse practitioner at the organ tuner's office today or recommendations come back into the ER. In the ER patient was noted to have acute on chronic hypercapnic respiratory failure. The patient was refusing BiPAP at that time. She was also refusing nebulizer treatments. She did agree to steroid therapy. She was given Lasix. Following Lasix administration the patient was incontinent of urine and since that time has refused to allow nursing staff to change her because she ?does not want to get cold.? With place patient on BiPAP as she was refusing AVAPS therapy here. She stated she would have her bring her home trilogy in the moaning. Review of Systems Review of Systems: 12 systems were reviewed with pertinent positives and negatives per HPI. Except as documented in the HPI, all other systems were reviewed and are negative. [facility] Past Medical History Medical History Age-related osteoporosis without current pathological fracture Changing nevus (~04/2019) Chronic obstructive pulmonary disease, unspecified (~2000) Chronic respiratory failure Cor pulmonale Ganglion cyst of finger of right hand (~01/2019) History of colon polyps History of poliomyelitis without residual effect (~1950) Right-sided congestive heart failure Most recent echocardiogram August 2022: The hyperdynamic left ventricle EF of greater than 70, grade 1 diastolic dysfunction E/E 12 is mildly elevated, right ventricular systolic function mildly reduced with abnormal TAPSE, moderate pulmonary hypertension noted echo with RVSP of 58 (improved from prior echo 2020 with RVSP of 111), the patient had prior right heart catheterization demonstrating severe pulmonary hypertension in 2020, dilated inferior VA cava with greater per than 50% collapse with inspiration consistent with elevated right heart pressures Severe pulmonary hypertension RVSP of 111 on echocardiogram July 2020, dilated inferior vena cava with g
[2023-06-17] VITALS (12 sets, daily range): BP systolic 108–143; BP diastolic 64–79; PULSE 86–122; RESP 16–24; TEMP 36.1–36.7; O2SAT 90–100
[2023-06-17] MEDS: methylPREDNISolone SOD SUCC 125 MG VIAL 60 MG IV PUSH ×5 (00:36→23:29)
[2023-06-17 04:47] LABS: Hematocrit 46.2 % (37.0-47.0); Hemoglobin 13.8 g/dL (12.0-15.0); Immature Granulocyte Absolute 0.03 K/mm3 (0.00-0.031); Immature Granulocyte Percent A 0.6 % (0-0.5); Immature Platelet Fraction Pct 5.6 % (0.9-11.2); Lymphocytes Absolute Auto 0.21 K/mm3 (0.9-3.2); Lymphocytes Percent Auto 4.4 % (18.3-44.2); Mean Corpuscular HGB Conc 29.9 g/dl (32-36); Mean Corpuscular Hemoglobin 31.6 pg (26-34); Mean Corpuscular Volume 105.7 fl (80-100); Mean Platelet Volume 10.1 fl (7.4-10.4); Monocytes Absolute Auto 0.1 K/mm3 (0.1-0.6); Monocytes Percent Auto 1.3 % (2.6-8.5); Neutrophils Absolute Auto 4.5 K/mm3 (1.3-6.7); Neutrophils Percent Auto 93.7 % (45.5-73.1); Platelet Count Result 115 k/mm3 (150-375); Red Blood Count 4.37 M/mm3 (4.2-5.4); Red Cell Distribution Width 13.6 % (11.5-14.5); White Blood Count 4.8 K/mm3 (4.5-10.0)
[2023-06-17 05:01] LABS: Alanine Aminotransferase 47 U/L (6-35); Albumin Level 3.9 g/dL (3.5-5.1); Alkaline Phosphatase 62 U/L (38-126); Aspartate Amino Transferase 48 U/L (14-36); Bilirubin,Total 0.8 mg/dL (0.2-1.3); Blood Urea Nitrogen 50 mg/dL (7-17); Calcium 9.1 mg/dL (8.4-10.2); Carbon Dioxide > 40 mmol/L (22-30); Chloride 87 mmol/L (98-107); Estimated CRCL calculation 38 ml/min; Estimated Glomerular Filt Rate > 60; Glucose 158 mg/dL (65-110); Potassium 4.5 mmol/L (3.4-5.0); Sodium 137 mmol/L (137-145)
[2023-06-17] MEDS: FLUTICASONE/UMECLIDIN/VILANTER 100-62.5-25 MCG ELLIPTA 1 PUFF INHALATION (07:40)
[2023-06-17] MEDS: FUROSEMIDE INJ 40 MG/4 ML VIAL IV PUSH ×2 (09:01→20:32)
[2023-06-17] MEDS: METOPROLOL TARTRATE 12.5 MG TABLET PO ×2 (09:01→20:32)
[2023-06-17] MEDS: ENOXAPARIN 40 MG/0.4 ML SYRINGE SUB-Q (09:01)
[2023-06-17] MEDS: FERROUS SULFATE 325 MG TABLET DR BY MOUTH (09:01)
[2023-06-17] MEDS: MULTIVITAMINS THERAPEUTIC TAB (*BKC) 1 TABLET PO (09:01)
[2023-06-17] MEDS: SILDENAFIL CITRATE 20 MG TABLET PO ×3 (09:06→17:38)
--- NOTE | 2023-06-17 14:05 | PCRCNOTE ---
pt refused both her 0800 and 1400 breathing treatments, she states that when she has breathing treatments they make her feel worse, as if she cant catch her breath. RN notified.
--- NOTE | 2023-06-17 17:48 | PM.IMPN ---
Progress Note: A&P Assessment and Plan (1) Acute exacerbation of CHF (congestive heart failure): Qualifiers: Heart failure type: right-sided Qualified Code(s): I50.813 - Acute on chronic right heart failure Code(s): I50.9 - Heart failure, unspecified Status: Chronic Assessment and Plan: Much improved on IV diuresis, strict I&Os, daily weight Daily BMPs (2) Right-sided congestive heart failure: Qualifiers: Heart failure chronicity: acute on chronic Qualified Code(s): I50.813 - Acute on chronic right heart failure Code(s): I50.810 - Right heart failure, unspecified Status: Acute Assessment and Plan: See above (3) Cor pulmonale: Code(s): I27.81 - Cor pulmonale (chronic) Status: Acute (4) Personal history of noncompliance with medical treatment and regimen: Code(s): Z91.199 - Patient's noncompliance with other medical treatment and regimen due to unspecified reason Status: Acute (5) Transaminitis: Code(s): R74.01 - Elevation of levels of liver transaminase levels Status: Acute Assessment and Plan: Stable (6) Acute on chronic respiratory failure with hypoxia and hypercapnia: Code(s): J96.21 - Acute and chronic respiratory failure with hypoxia; J96.22 - Acute and chronic respiratory failure with hypercapnia Status: Acute Assessment and Plan: Improving, monitor Plan DVT prophylaxis with Lovenox GI prophylaxis not indicated Code status full code Subjective Date/time seen: 06/17/23 17:48 Interval history: 72-year-old female with past medical history of cor pulmonale, severe pulmonary hypertension, chronic hypoxic hypercapnic respiratory failure and noncompliance with medication therapy who presented to the ER with increasing shortness of breath and leg swelling.? No overnight events noted. No chest pain, improved SOB. No nausea, vomiting or diarrhea. No fevers or chills. Review of Systems Review of Systems: 12 point review of systems was assessed and was negative except as noted in the HPI Exam Narrative: General: No acute distress, alert and oriented per baseline HEENT: Atraumatic, normocephalic, mucous membranes moist CV: Regular rate and rhythm, S1, S2 Lungs: Diminished throughout, scattered wheezes Abdomen: Soft, nontender, nondistended Extremities: Normal to inspection Skin: No rashes noted, no lesions or wounds seen Psych: Euthymic, normal affect Objective Data Vital Signs Vital Signs: Vital Signs - 24 hr 06/16/23 18:13 06/16/23 18:28 06/16/23 18:15 Temperature Pulse Rate 104 H 105 H 105 H Respiratory Rate 31 H 25 H 28 H Blood Pressure 127/77 120/78 120/78 Pulse Oximetry 96 98 95 Oxygen Delivery Oxygen Flow Rate 06/16/23 18:18 06/16/23 18:30 06/16/23 18:31 Temperature Pulse Rate 104 H 103 H 106 H Respiratory Rate 25 H 31 H 24 H Blood Pressure 125/79 Pulse Oximetry 97 97 98 Oxygen Delivery Oxygen Flow Rate 06/16/23 18:45 06/16/23 18:46 06/16/23 19:00 Temperature Pulse Rate 109 H 106 H 102 H Respiratory Rate 28 H 22 H 23 H Blood Pressure 125/80 119/74 Pulse Oximetry 99 100 94 Oxygen Delivery Oxygen Flow Rate 06/16/23 19:47 06/16/23 20:00 06/16/23 20:01 Temperature Pulse Rate 100 100 99 Respiratory Rate 22 H 25 H 24 H Blood Pressure 119/76 Pulse Oximetry 95 100 Oxygen Delivery Oxygen Flow Rate 06/16/23 20:15 06/16/23 20:16 06/16/23 21:50 Temperature 97.3 F L Pulse Rate 101 H 107 H 116 H Respiratory Rate 26 H 23 H 23 H Blood Pressure 126/72 134/73 Pulse Oximetry 95 Oxygen Delivery Oxygen Flow Rate 06/17/23 00:00 06/17/23 00:00 06/16/23 22:00 Temperature 97.5 F L Pulse Rate 115 H 113 H Respiratory Rate 23 H Blood Pressure 130/79 Pulse Oximetry 99 90 Oxygen Delivery Oxygen Flow Rate 5 06/17/23 00:00 06/17/23 02:00 12
--- NOTE | 2023-06-17 18:07 | ADMGEN ---
This patient, Saima Bryant, was transferred to Medical Room 347-01 from IMU Room 205-2 at 1755. Patient and oriented to hospital policies and general routines including ID bracelet, bed and alarms, visiting hours, pain management, procedures, bathroom and other care routines, personal items, smoking policy, room service/diet, and visiting hours. Information on how to activate the Rapid Response Team has been discussed. Patient/Family are encouraged to report perceived risks to care and to ask questions if they do not understand what they are told or what they should do.
--- NOTE | 2023-06-17 18:13 | PC.NURSE ---
This patient, Saima Bryant, was transferred to [ 347] on 06/17/23 at 1755. Personal belongings sent with patient. Report given to [ Jessica BERNARD]. Appropriate documentation sent with patient.
[2023-06-17] MEDS: guaiFENesin 600 MG/DEXTROMETHORPHAN 30 MG SR TAB 12 HR 2 TAB PO (20:33)
[2023-06-18 05:07] VITALS: BP 118/66; PULSE 77; RESP 18; TEMP 36.4; O2SAT 99
[2023-06-18] MEDS: methylPREDNISolone SOD SUCC 125 MG VIAL 60 MG IV PUSH ×4 (05:13→23:15)
[2023-06-18 09:10] VITALS: PULSE 100
[2023-06-18] MEDS: METOPROLOL TARTRATE 12.5 MG TABLET PO ×2 (09:10→20:37)
[2023-06-18] MEDS: SILDENAFIL CITRATE 20 MG TABLET PO ×3 (09:10→17:05)
[2023-06-18] MEDS: ENOXAPARIN 40 MG/0.4 ML SYRINGE SUB-Q (09:10)
[2023-06-18] MEDS: MULTIVITAMINS THERAPEUTIC TAB (*BKC) 1 TABLET PO (09:10)
[2023-06-18] MEDS: FERROUS SULFATE 325 MG TABLET DR BY MOUTH (09:10)
[2023-06-18] MEDS: FUROSEMIDE INJ 40 MG/4 ML VIAL IV PUSH ×3 (09:10→20:37)
[2023-06-18 09:42] VITALS: O2SAT 93
[2023-06-18 10:52] LABS: Basophils Percent Auto 0.1 % (0.2-1.2); Hematocrit 42.7 % (37.0-47.0); Hemoglobin 12.5 g/dL (12.0-15.0); Immature Granulocyte Absolute 0.02 K/mm3 (0.00-0.031); Immature Granulocyte Percent A 0.3 % (0-0.5); Lymphocytes Absolute Auto 0.37 K/mm3 (0.9-3.2); Lymphocytes Percent Auto 4.7 % (18.3-44.2); Mean Corpuscular HGB Conc 29.3 g/dl (32-36); Mean Corpuscular Hemoglobin 31.1 pg (26-34); Mean Corpuscular Volume 106.2 fl (80-100); Mean Platelet Volume 10.5 fl (7.4-10.4); Monocytes Absolute Auto 0.4 K/mm3 (0.1-0.6); Monocytes Percent Auto 5.1 % (2.6-8.5); Neutrophils Percent Auto 89.8 % (45.5-73.1); Platelet Count Result 118 k/mm3 (150-375); Red Blood Count 4.02 M/mm3 (4.2-5.4); Red Cell Distribution Width 13.6 % (11.5-14.5); White Blood Count 7.8 K/mm3 (4.5-10.0)
[2023-06-18] MEDS: FLUTICASONE/UMECLIDIN/VILANTER 100-62.5-25 MCG ELLIPTA 1 PUFF INHALATION (11:00)
[2023-06-18 11:03] LABS: Alanine Aminotransferase 35 U/L (6-35); Albumin Level 3.6 g/dL (3.5-5.1); Alkaline Phosphatase 51 U/L (38-126); Aspartate Amino Transferase 35 U/L (14-36); Bilirubin,Total 0.5 mg/dL (0.2-1.3); Blood Urea Nitrogen 49 mg/dL (7-17); Carbon Dioxide > 40 mmol/L (22-30); Chloride 83 mmol/L (98-107); Estimated CRCL calculation 41 ml/min; Estimated Glomerular Filt Rate > 60; Glucose 313 mg/dL (65-110); Sodium 137 mmol/L (137-145)
--- NOTE | 2023-06-18 11:17 | PCRCNOTE ---
Window of time for administration has passed. See next scheduled administration.
--- NOTE | 2023-06-18 13:47 | PM.IMPN ---
Progress Note: A&P Assessment and Plan (1) Acute exacerbation of CHF (congestive heart failure): Qualifiers: Heart failure type: right-sided Qualified Code(s): I50.813 - Acute on chronic right heart failure Code(s): I50.9 - Heart failure, unspecified Status: Chronic Assessment and Plan: Improved, chest x-ray shows continued edema (2) Right-sided congestive heart failure: Qualifiers: Heart failure chronicity: acute on chronic Qualified Code(s): I50.813 - Acute on chronic right heart failure Code(s): I50.810 - Right heart failure, unspecified Status: Acute (3) Cor pulmonale: Code(s): I27.81 - Cor pulmonale (chronic) Status: Acute (4) Personal history of noncompliance with medical treatment and regimen: Code(s): Z91.199 - Patient's noncompliance with other medical treatment and regimen due to unspecified reason Status: Acute Assessment and Plan: refusing breathing treatments (5) Transaminitis: Code(s): R74.01 - Elevation of levels of liver transaminase levels Status: Acute Assessment and Plan: resolved (6) Acute on chronic respiratory failure with hypoxia and hypercapnia: Code(s): J96.21 - Acute and chronic respiratory failure with hypoxia; J96.22 - Acute and chronic respiratory failure with hypercapnia Status: Acute Assessment and Plan: at baseline, but feels very sob, unable to ambulate much for months at home prior to coming in, now interested in talking to hospice Plan DVT prophylaxis with SCDs GI prophylaxis not indicated Code status full code Subjective Date/time seen: 06/18/23 13:47 Interval history: 72-year-old female with past medical history of cor pulmonale, severe pulmonary hypertension, chronic hypoxic hypercapnic respiratory failure and noncompliance with medication therapy who presented to the ER with increasing shortness of breath and leg swelling.? No overnight events noted. No chest pain. No nausea, vomiting or diarrhea. No fevers or chills. Patient states her shortness breath is unchanged. She is interested in talking to hospice. Review of Systems Review of Systems: 12 point review of systems was assessed and was negative except as noted in the HPI Exam Narrative: General: No acute distress, alert and oriented per baseline HEENT: Atraumatic, normocephalic, mucous membranes moist CV: Regular rate and rhythm, S1, S2 Lungs: Diminished throughout, scattered wheezes Abdomen: Soft, nontender, nondistended Extremities: Normal to inspection Skin: No rashes noted, no lesions or wounds seen Psych: Euthymic, normal affect Objective Data Vital Signs Vital Signs: Vital Signs - 24 hr 06/17/23 16:00 06/17/23 19:33 06/18/23 05:07 Temperature 97.1 F L 98.1 F 97.6 F Pulse Rate 104 H 91 77 Respiratory Rate 18 16 18 Blood Pressure 108/69 114/76 118/66 Pulse Oximetry 98 93 99 Oxygen Delivery Oxygen Flow Rate 06/17/23 20:00 06/18/23 09:10 06/18/23 09:42 Temperature Pulse Rate 100 Respiratory Rate Blood Pressure Pulse Oximetry 93 93 Oxygen Delivery Nasal Cannula Nasal Cannula Oxygen Flow Rate 3 4 Intake/Output Intake/Output: Intake & Output 06/15/23 06/16/23 06/17/23 06/18/23 23:59 23:59 23:59 23:59 Intake Total 1440 440 Output Total 1750 500 Balance -310 -60 Meds/Results Medications: Active Medications Generic Name Dose Route Start Last Admin Trade Name Freq PRN Reason Stop Dose Admin Calcium Carbonate 1,000 mg 06/17/23 09:00 06/18/23 09:10 Calcium/Vitamin D 500 Mg Tablet PO 1,000 mg QAM [facility] Administration Enoxaparin Sodium 40 mg 06/17/23 09:00 06/18/23 09:10 Enoxaparin 40 Mg/0.4 Ml Syringe SUB-Q 40 mg DAILY [facility] Administration Ferrous Sulfate 325 mg 06/17/23 09:00 06/18/23 09:10 Ferrous Sulfate [address] BY MOUTH 325 mg DAILY [facility]
[2023-06-18 16:00] VITALS: BP 103/57; PULSE 86; RESP 16; TEMP 36.7; O2SAT 95
[2023-06-18 20:37] VITALS: PULSE 95
[2023-06-18] MEDS: guaiFENesin 600 MG/DEXTROMETHORPHAN 30 MG SR TAB 12 HR 2 TAB PO (20:37)
[2023-06-18 23:08] VITALS: BP 135/81; PULSE 95; RESP 18; TEMP 36.6; O2SAT 97
[2023-06-19] MEDS: FUROSEMIDE INJ 40 MG/4 ML VIAL IV PUSH ×2 (05:18→13:10)
[2023-06-19] MEDS: methylPREDNISolone SOD SUCC 125 MG VIAL 60 MG IV PUSH ×2 (05:18→13:10)
[2023-06-19 06:00] VITALS: BP 124/68; PULSE 79; RESP 21; TEMP 36.7; O2SAT 100
[2023-06-19 08:44] VITALS: PULSE 80
[2023-06-19] MEDS: MULTIVITAMINS THERAPEUTIC TAB (*BKC) 1 TABLET PO (08:44)
[2023-06-19] MEDS: ENOXAPARIN 40 MG/0.4 ML SYRINGE SUB-Q (08:44)
[2023-06-19] MEDS: FERROUS SULFATE 325 MG TABLET DR BY MOUTH (08:44)
[2023-06-19] MEDS: METOPROLOL TARTRATE 12.5 MG TABLET PO (08:44)
[2023-06-19 08:48] VITALS: O2SAT 99
[2023-06-19] MEDS: SILDENAFIL CITRATE 20 MG TABLET PO ×3 (08:52→16:44)
[2023-06-19] MEDS: FLUTICASONE/UMECLIDIN/VILANTER 100-62.5-25 MCG ELLIPTA 1 PUFF INHALATION (08:56)
--- NOTE | 2023-06-19 09:53 | P.CDI_ITS ---
CDI Query Clarification Request Documented history of CHF. CHF noted in the assessment and plan. Elevated BNP on 06/16 lab work. Lasix listed as a home medication. Patient receiving Lasix. Pulmonary edema noted on the 06/16/23 chest xray. Patient presented with increasing shortness of breath and BLE edema. Please specify type and acuity of heart failure if known. * Acute * Chronic * Acute on Chronic * Unknown * Systolic * Diastolic * Combined Systolic and Diastolic * Unknown <Christen Obrien RN - Last Filed: 06/19/23 09:56> Clarified Diagnosis Clarified Diagnosis: acute on chronic diastolci dysfunction <María Alcala DO - Last Filed: 06/19/23 14:20>
[2023-06-19 14:00] VITALS: BP 119/59; PULSE 84; RESP 18; TEMP 36.9; O2SAT 97
--- NOTE | 2023-06-19 14:18 | PM.DS ---
DS: Admitting Diagnosis Discharge Date 06/19/23 Admitting Diagnosis sob DS: Discharge Diagnosis Discharge Diagnosis (1) Acute exacerbation of CHF (congestive heart failure): Qualifiers: Heart failure type: right-sided Qualified Code(s): I50.813 - Acute on chronic right heart failure Code(s): I50.9 - Heart failure, unspecified Status: Chronic Assessment and Plan: Improved, chest x-ray shows continued edema (2) Right-sided congestive heart failure: Qualifiers: Heart failure chronicity: acute on chronic Qualified Code(s): I50.813 - Acute on chronic right heart failure Code(s): I50.810 - Right heart failure, unspecified Status: Acute (3) Cor pulmonale: Code(s): I27.81 - Cor pulmonale (chronic) Status: Acute (4) Personal history of noncompliance with medical treatment and regimen: Code(s): Z91.199 - Patient's noncompliance with other medical treatment and regimen due to unspecified reason Status: Acute Assessment and Plan: refusing breathing treatments (5) Transaminitis: Code(s): R74.01 - Elevation of levels of liver transaminase levels Status: Acute Assessment and Plan: resolved (6) Acute on chronic respiratory failure with hypoxia and hypercapnia: Code(s): J96.21 - Acute and chronic respiratory failure with hypoxia; J96.22 - Acute and chronic respiratory failure with hypercapnia Status: Acute Assessment and Plan: at baseline, but feels very sob, unable to ambulate much for months at home prior to coming in, now interested in talking to hospice Plan DVT prophylaxis with SCDs GI prophylaxis not indicated Code status full code DS: Summary Hospital Course Hospital Course: 72-year-old female with past medical history of cor pulmonale, severe pulmonary hypertension, chronic hypoxic hypercapnic respiratory failure and noncompliance with medication therapy who presented to the ER with increasing shortness of breath and leg swelling.? Patient was treated for acute heart failure exacerbation, COPD exacerbation. Symptoms improved somewhat. She is ultimately end-stage and met with hospice. She was discharged in stable condition with close outpatient follow-up by hospice. Please see above and med rec for details. Time Spent with Patient Time attestation: Total time spent providing and/or coordinating discharge services: Exam Narrative: General: No acute distress, alert and oriented per baseline HEENT: Atraumatic, normocephalic, mucous membranes moist CV: Regular rate and rhythm, S1, S2 Lungs: Diminished throughout, scattered wheezes Abdomen: Soft, nontender, nondistended Extremities: Normal to inspection Skin: No rashes noted, no lesions or wounds seen Psych: Euthymic, normal affect Discharge Plan Discharge Attending physician on discharge: María Alcala Discharging Clinician: María Alcala Patient Disposition: Home, Self-Care Activity: as tolerated Diet: as tolerated Patient Instructions: Antibiotic Form, Heart Failure (DC) Stand Alone Forms: General Discharge Information Follow-up/Referrals: Luz Marina Ulrich MD [Primary Care Provider] - Discharge Medications: New lorazepam [Ativan] 0.5 mg tablet 0.5 mg PO TID PRN (Reason: anxiety) Qty: 30 0RF prednisone 50 mg tablet 50 mg PO DAILY 5 Days Qty: 5 0RF Continued Trelegy Ellipta 100-62.5-25 mcg blister with device 1 ea INHALATION DAILY Qty: 60 11RF Rx Instructions: Rinse and spit. sildenafil (pulm.hypertension) 20 mg tablet 20 mg PO TID Adults Multivitamin 1 tab-cap PO DAILY potassium 99 mg Tablet 99 mg PO DAILY dextromethorphan-guaifenesin [Mucinex DM] 60-1,200 mg Tablet Extended Release 12 Hr 1 tablet PO HS garlic Tablet 1 tablet PO DAILY ferrous sulfate 324 mg (65 mg iron) Tablet,Delayed Release (Dr/Ec
[2023-06-19] MEDS: MORPHINE SULFATE (*CRX) 2 MG/ML INJ IV PUSH (16:45)
== END 2023-06-19 18:30 | disposition home or self-care (01) | DRG 292 ==
LOC: ANHED 17:09 → ANHIMU 20:55 → ANH3MED 06-17 17:29
PROVIDERS: Emergency Medicine; Admitting Provider Internal Medicine; Emergency Provider General Practice; PCP Family Medicine; Visit Provider Student in an Organized Health Care Education/Training Program
DX: I50.33 Acute on chronic diastolic (congestive) heart failure (principal); J44.1 Chronic obstructive pulmonary disease with (acute) exacerbation; Z91.199 Patient's noncompliance with other medical treatment and regimen due to unspecified reason; I27.81 Cor pulmonale (chronic); Z20.822 Contact with and (suspected) exposure to COVID-19; Z87.891 Personal history of nicotine dependence
CPT/HCPCS: 36415; 36600; 71045; 71046; 80053; 82375; 82805; 83050; 83880; 84484; 85025; 85055; 85610; 85730; 87637; 93005; 94002; 94640; 96374; 99285; A9270; J1650; J1940; J2270; J2930